=== PATIENT | male | born 1945 | race Two or more races ===

== ENCOUNTER 2024-08-31 17:40 | Emergency (ER) | payer MEDICARE, OTHER ==
[~2024-08-31] VITALS: Ht 170.2 cm; Wt 93.4 kg
[2024-08-31 17:45] VITALS: BP 128/88; RESP 18; O2SAT 96
--- NOTE | 2024-08-31 18:24 | ED.PDOC ---
Musculoskeletal HPI Comments 79-year-old male presents to ER with complaints of left elbow pain x2 days. Patient reports that he woke up with left elbow pain two days ago. Denies any known injury but states he believes he may have hit his elbow against his night stand while sleeping. Rates his current pain an 8/10 to left elbow without radiation. Notes he has been taking ibuprofen for his pain with some relief. Patient presents to ER ambulatory, with steady gait, with slight TTP to left elbow noted and full range of motion to left elbow appreciated. Denies skin changes, fever, numbness/tingling or any further symptoms/complaints Chief Complaint: Upper Extremity Time Seen by MD: 18:07 Reviewed Notes: Nurses Notes, Medications, Allergies Allergies: Coded Allergies: NO KNOWN ALLERGIES (Unverified , 08/31/24) Information Source: Patient Mode of Arrival: Ambulatory Past Medical History PAST MEDICAL HISTORY: Denies Surgical History: Denies all surgeries Family History Family History: Unknown Social History Smoker: Non-Smoker Alcohol: Denies ETOH Use Drugs: Denies Drug Use Lives In: Home Constitutional: denies: chills, diaphoresis, fatigue, fever, malaise, sweats, weakness, others EENTM: denies: blurred vision, double vision, ear bleeding, ear discharge, ear drainage, ear pain, ear ringing, eye pain, eye redness, hearing loss, mouth pain, mouth swelling, nasal discharge, nose bleeding, nose congestion, nose pain, photophobia, tearing, throat pain, throat swelling, voice changes, others Respiratory: denies: cough, hemoptysis, orthopnea, SOB at rest, shortness of breath, SOB with excertion, stridor, wheezing, others Cardiovascular: denies: chest pain, dizzy spells, diaphoresis, Dyspnea on exertion, edema, irregular heart beat, left arm pain, lightheadedness, palpitations, PND, syncope, others Gastrointestinal: denies: abdomen distended, abdominal pain, blood streaked bowels, constipated, diarrhea, dysphagia, difficulty swallowing, hematemesis, melena, nausea, poor appetite, poor fluid intake, rectal bleeding, rectal pain, vomiting, others Genitourinary: denies: burning, dysuria, flank pain, frequency, hematuria, incontinence, penile discharge, penile sore, pain, testicle pain, testicle swelling, urgency, others Neurological: denies: dizziness, fainting, headache, left sided numbness, left sided weakness, numbness, paresthesia, pre-existing deficit, right sided numbness, right sided weakness, seizure, speech problems, tingling, tremors, weakness, others Musculoskeletal: reports: others (As in HPI) Integumetry: denies: bruises, change in color, change in hair/nails, dryness, laceration, lesions, lumps, rash, wounds, others Allergic/Immunocompromised: denies: Difficulty Healing, Frequent Infections, Hives, Itching, others Hematologic/Lymphatic: denies: anemia, blood clots, easy bleeding, easy bruising, swollen glands, others Endocrine: denies: excessive hunger, excessive sweating, excessive thirst, excessive urination, flushing, intolerance to cold, intolerance to heat, unexplained weight gain, unexplained weight loss, others Psychiatric: denies: anxiety, bipolar disorder, depression, hopeless, panic disorder, schizophrenia, sleepless, suicidal, others Physical Exam General Appearance: No Apparent Distress HEENT: PERRL/EOMI Neck: Full Range of Motion, Non-Tender, Normal Respiratory: Chest Non-Tender, Lungs Clear, No Accessory Muscle Use, No Respiratory Distress, Normal Breath Sounds Cardiovascular: No Murmur, No Gallop, Regular Rate/Rhythm Breast Exam: Deferred Gastrointestinal: NOT DONE Genitalia: Deferred Pelvic: Deferred Rectal: Deferred Extremities: Normal capillary refill, Normal range of motion Musculoskeletal : Extremity Location: Elbow (Slight TTP to left elbow noted and full range of motion to left elbow appreciated. No skin changes/deformity to left elbow appreciated. No other TTP to left upper extremity noted. Pulses intact) Neurologic: Alert, No Motor Deficits, Normal Affect, Normal Mood, No Sensory Deficits Cerebellar Function: Normal Reflexes: Normal Skin: Dry, Normal Color, Warm Peripheral Pulses: 2+ Radial (R), 2+ Radial (L), 2+ Brachial (R), 2+ Brachial (L) Lymphatic: No Adenopathy Was a procedure done? Was a procedure done?: No Sedation Sedation?: No Differential Diagnosis EXT Differential Diagnosis: Fracture, Dislocation, Neurovascular injury X-Ray, Labs, Meds, VS Vital Signs Date Time Temp Pulse Resp B/P (MAP) Pulse Ox O2 Delivery O2 Flow Rate FiO2 08/31/24 17:45 18 96 Room Air* 0 21 08/31/24 17:45 98.2 81 18 128/88 (681) 59 98.2 PATIENT: JEANETH LOPEZ ACCT: [id number] UNIT: [id number] : 1945 LOC: ER ROOM / BED: / AGE / SEX: 79 / M ADM STATUS: REG ER SERVICE 14 ORDERING PHYSICIAN: PEPE PANTOJA PROCEDURE(s): LELB3 - L ELBOW 3 VIEW XRAY REASON: left elbow pain ORDER NUMBER(s): [id number], ACCESSION NUMBER(s): [id number] EXAM: XY L ELBOW 3 VIEW XRAY REASON FOR EXAM: left elbow pain TECHNIQUE: AP, lateral, and oblique views of the left elbow are submitted for review. COMPARISON: None FINDINGS: The bones demonstrate grossly normal mineralization. There is an elbow effusion. No definite fracture is identified. There is mild soft tissue swelling about the elbow. IMPRESSION: Elbow joint effusion without definite fracture. If there is clinical concern for acute fracture, consider further evaluation with CT or MRI. ATED BY: LESTER FIORE MD DICTATED DATE/TIME: 08/31/241851 SIGNED BY: LESTER FIORE MD SIGNED DATE/TIME: 08/31/241851 CC: Left elbow x-ray reviewed Patient neurovascularly intact Advised on elevation and alternate ice on/off as needed for pain Advised to follow up with PCP in 1-2 days Patient verbalized understanding and agreeable with current plan of care Advised to return to ER immediately if symptoms worsen Images Reviewed?: Images reviewed and evaluated by me Time of 1ST Reevaluation: 18:24 Reevaluation 1ST: N/A Patient Education/Counseling: Diagnosis, Treatment, Prognosis, Need For Follow Up Family Education/Counseling: No Family Present Departure 1 Departure Time of Disposition: 19:10 Impression: Primary Impression: Contusion of elbow, left Qualified Codes: S50.02XA - Contusion of left elbow, initial encounter Disposition: HOME / SELF CARE / HOMELESS Condition: Stable Discharged With: Friend Critical Care Note Critical Care Time?: No Stability Stability form required: No Heart Score Heart Score: Heart Score Response (Comments) Value History N/A 0 EKG N/A 0 Age N/A 0 Risk Factors N/A 0 Troponin N/A 0 Total 0 PEPE PANTOJA Aug 31, 2024 18:24
--- NOTE | 2024-08-31 18:55 | DVH ---
EXAM: XY L ELBOW 3 VIEW XRAY REASON FOR EXAM: left elbow pain TECHNIQUE: AP, lateral, and oblique views of the left elbow are submitted for review. COMPARISON: None FINDINGS: The bones demonstrate grossly normal mineralization. There is an elbow effusion. No definit e fracture is identified. There is mild soft tissue swelling about the elbow. IMPRESSION: Elbow joint effusion without definite fracture. If there is clinical concern for acute fracture, con construction coordinator further evaluation with CT or MRI.
[2024-08-31 19:33] VITALS: PULSE 78; RESP 18; TEMP 98.4; O2SAT 95
== END 2024-08-31 19:34 | disposition home or self-care (01) ==
LOC: ER 17:40
DX: S50.02XA Contusion of left elbow, initial encounter (principal); X58.XXXA Exposure to other specified factors, initial encounter; Y93.89 Activity, other specified; Y92.89 Other specified places as the place of occurrence of the external cause; Y99.8 Other external cause status
CPT/HCPCS: 73080

== ENCOUNTER 2024-10-01 16:58 | Emergency (ER) | payer MEDICARE ==
[~2024-10-01] VITALS: Ht 170.2 cm; Wt 102.0 kg
--- NOTE | 2024-10-01 17:27 | ED.PDOC ---
GI ASSESSMENT HPI Comments This is a pleasant but morbidly obese 79 year old male presenting to the ED with chief complaint of abdominal pain. Patient reports that he was given some tequila 4 days ago from a friend, but after drinking it that day, he started to experience diffuse abdominal pain with associated nausea, vomiting, tremors, and sleeplessness. Patient relays that his symptoms have continued till now. Patient denies any diarrhea, fever, chills, chest pain, dizziness, SOB, or melena. Vital signs were stable. Chief Complaint: Abdominal Pain Time Seen by MD: 17:16 Reviewed Notes: Nurses Notes, Medications, Allergies Allergies: Coded Allergies: NO KNOWN ALLERGIES (Unverified , 08/31/24) Information Source: Patient Mode of Arrival: Ambulatory Timing: Days Duration: Since onset Prehospital treatment: None Quality: Aching Vomitus: Watery Stool: Normal Severity: Moderate Recent: None Recent Hx of: None Pain Location: Diffuse Modifying Factors: Nothing Associated sign and symptoms: Nausea, Vomiting, Abdominal Pain Past Medical History PAST MEDICAL HISTORY: Denies Surgical History: Denies all surgeries Family History Family History: Unknown Social History Smoker: Non-Smoker Alcohol: Occasionally Drugs: Denies Drug Use Lives In: Home Constitutional: denies: chills, diaphoresis, fatigue, fever, malaise, sweats, weakness, others EENTM: denies: blurred vision, double vision, ear bleeding, ear discharge, ear drainage, ear pain, ear ringing, eye pain, eye redness, hearing loss, mouth pain, mouth swelling, nasal discharge, nose bleeding, nose congestion, nose pain, photophobia, tearing, throat pain, throat swelling, voice changes, others Respiratory: denies: cough, hemoptysis, orthopnea, SOB at rest, shortness of breath, SOB with excertion, stridor, wheezing, others Cardiovascular: denies: chest pain, dizzy spells, diaphoresis, Dyspnea on exertion, edema, irregular heart beat, left arm pain, lightheadedness, palpitations, PND, syncope, others Gastrointestinal: reports: abdominal pain, nausea, vomiting; denies: abdomen distended, blood streaked bowels, constipated, diarrhea, dysphagia, difficulty swallowing, hematemesis, melena, poor appetite, poor fluid intake, rectal bleeding, rectal pain, others Genitourinary: denies: burning, dysuria, flank pain, frequency, hematuria, incontinence, penile discharge, penile sore, pain, testicle pain, testicle swelling, urgency, others Neurological: reports: tremors; denies: dizziness, fainting, headache, left sided numbness, left sided weakness, numbness, paresthesia, pre-existing deficit, right sided numbness, right sided weakness, seizure, speech problems, tingling, weakness, others Musculoskeletal: denies: back pain, gout, joint pain, joint swelling, muscle pain, muscle stiffness, neck pain, others Integumetry: denies: bruises, change in color, change in hair/nails, dryness, laceration, lesions, lumps, rash, wounds, others Allergic/Immunocompromised: denies: Difficulty Healing, Frequent Infections, Hives, Itching, others Hematologic/Lymphatic: denies: anemia, blood clots, easy bleeding, easy bruising, swollen glands, others Endocrine: denies: excessive hunger, excessive sweating, excessive thirst, excessive urination, flushing, intolerance to cold, intolerance to heat, unexpl ained weight gain, unexplained weight loss, others Psychiatric: reports: sleepless; denies: anxiety, bipolar disorder, depression, hopeless, panic disorder, schizophrenia, suicidal, others All Other Systems: Reviewed and Negative Physical Exam General Appearance: Mild Distress (Moderate distress due to abdominal pain concerns.), Obese HEENT: Normal ENT Inspection, Pharynx Normal, TMs Normal Neck: Full Range of Motion, Non-Tender, Normal, Normal Inspection Respiratory: Chest Non-Tender, Lungs Clear, No Accessory Muscle Use, No Respiratory Distress, Normal Breath Sounds Cardiovascular: No Edema, No JVD, No Murmur, No Gallop, Normal Peripheral Pulses, Regular Rate/Rhythm Breast Exam: Deferred Gastrointestinal: Other (Nonspecific diffuse periumbilical tenderness to palpation. Difficult to assess due to body habitus. No pulsatile masses.) Genitalia: Deferred Pelvic: Deferred Rectal: Deferred Extremities: No calf tenderness, Normal capillary refill, Normal inspection, Normal range of motion, Non-tender, No pedal edema Neurologic: Alert, No Motor Deficits, Normal Affect, Normal Mood, No Sensory Deficits Cerebellar Function: NOT DONE Reflexes: NOT DONE Skin: Dry, Normal Color, Warm Lymphatic: No Adenopathy Was a procedure done? Was a procedure done?: No GI differential Dx Differential Diagnosis: Other (Sepsis food poisoning) X-Ray, Labs, Meds, VS Vital Signs Date Time Temp Pulse Resp B/P (MAP) Pulse Ox O2 Delivery O2 Flow Rate FiO2 10/01/24 20:59 97.9 90 16 145/93 (110) 95 97.9 10/01/24 17:35 97.4 84 18 123/82 (96) 92 97.4 10/01/24 17:17 80 10/01/24 17:00 97.3 90 20 133/83 96 97.3 Lab Test 10/01/24 21:15 10/01/24 21:09 10/01/24 19:28 10/01/24 18:29 Range/Units Troponin I High Sensitivity 48 47 42 </=54 ng/L Urine Color Light-yellow Yellow Urine Clarity Clear Clear Urine pH 6.0 5.0-9.0 Urine Specific [place] 1.007 1.001-1.035 Urine Protein Trace H Negative Urine Ketones Negative Negative Urine Blood Trace H Negative /uL Urine Nitrite Negative Negative Urine Bilirubin Negative Negative Urine Urobilinogen Normal Negative mg/dL Urine Leukocyte Esterase Negative Negative /uL Urine RBC <1 0 - 3 /hpf Urine Microscopic WBC < 1 0-3 /HPF Urine Squamous Epithelial Cells Few <5 /hpf Urine Bacteria None seen None Seen /hpf Urine Glucose Normal Normal mg/dL White Blood Count 7.3 4.4-10.8 10^3/uL Red Blood Count 4.55 4.5-5.90 10^6/uL Hemoglobin 14.8 13.5-17.5 g/dL Hematocrit 43.3 41.0-53.0 % Mean Corpuscular Volume 95.0 80.0-100.0 fL Mean Corpuscular Hemoglobin 32.6 H 28.0-32.0 pg Mean Corpuscular Hemoglobin Concent 34.3 32.0-36.0 g/dL Red Cell Distribution Width 15.7 H 11.8-14.3 % Platelet Count 151 140-450 10^3/uL Mean Platelet Volume 8.1 6.9-10.8 fL Neutrophils (%) (Auto) 71.0 37.0-80.0 % Lymphocytes (%) (Auto) 17.6 10.0-50.0 % Monocytes (%) (Auto) 9.7 0.0-12.0 % Eosinophils (%) (Auto) 1.2 0.0-7.0 % Basophils (%) (Auto) 0.5 0.0-2.0 % Neutrophils # (Auto) 5.2 1.6-8.6 10 ^3/uL Lymphocytes # (Auto) 1.3 0.4-5.4 10 ^3/uL Monocytes # (Auto) 0.7 0-1.3 10 ^3/uL Eosinophils # (Auto) 0.1 0-0.8 10 ^3/uL Basophils # (Auto) 0 0-0.2 10 ^3/uL Nucleated Red Blood Cells 0.2 % Sodium Level 126 L 136-145 mmol/L Potassium Level 5.1 3.5-5.1 mmol/L Chloride Level 93 L 98-107 mmol/L Carbon Dioxide Level 25 20-31 mmol/L Anion Gap 8 5-15 Blood Urea Nitrogen 13 9-23 mg/dL Creatinine 0.74 0.700-1.30 mg/dL Glomerular Filtration Rate Calc 93 >90 mL/min BUN/Creatinine Ratio 17.6 10.0-20.0 Serum Glucose 101 74-106 mg/dL Calcium Level 9.0 8.7-10.4 mg/dL Lipase 45 12-53 U/L Current Medications Medications (Trade) Dose Ordered Sig/Gideon Route Start Time Stop Time Status Last Admin Dicyclomine HCl (Bentyl Injection) 20 mg ONCE ONCE IM 10/01/24 17:15 10/01/24 17:16 DC 10/01/24 17:44 Ondansetron HCl (Zofran Po) 4 mg ONCE ONCE PO 10/01/24 17:15 10/01/24 17:16 DC 10/01/24 17:44 X-Ray, Labs, Meds, VS Comment All studies performed the ED were evaluated by me personally. Serum studies wer e unremarkable for any systemic concerns. Patient appears to have suffered a food toxicity event. Medication was effective. Advised patient utilize medication as needed for the next few days as well as good hydration and healthy nutrition. Time of 1ST Reevaluation: 22:01 Reevaluation 1ST: Improved Consultation: PCP Patient Education/Counseling: Diagnosis, Treatment Family Education/Counseling: Diagnosis, Treatment, No Family Present SEPSIS Sepsis Screen Date sepsis recognized/suspect: Oct 01, 2024 Time Sepsis recognized/suspect: 1700 Recent Procedure: No On Antibiotic Therapy: No Respiratory Rate >20: No Heart Rate >90: Yes Temp<36 C (96.8 F) or >38.3 C: No SBP <90 or MAP <65 mmHG: No New Acute Mental Status Change: No Is the patient on CPAP, BIPAP,: No Physician Orders Troponin-I Hs (10/02/24 00:00) Troponin-I Hs (10/02/24 03:00) Electrocardigram (10/01/24 17:12) Dicyclomine Injection (Bentyl Injection) (10/01/24 22:00) Vital Signs Date Time Temp Pulse Resp B/P (MAP) Pulse Ox O2 Delivery O2 Flow Rate FiO2 10/01/24 20:59 97.9 90 16 145/93 (110) 95 97.9 10/01/24 17:35 97.4 84 18 123/82 (96) 92 97.4 10/01/24 17:17 80 10/01/24 17:00 97.3 90 20 133/83 96 97.3 Laboratory Tests Test 10/01/24 18:29 White Blood Count 7.3 10^3/uL (4.4-10.8) Medications Medications Dose Ordered Sig/Gideon Route Start Time Stop Time Status Last Admin Dose Admin Dicyclomine HCl 20 mg ONCE ONCE IM 10/01/24 17:15 10/01/24 17:16 DC 10/01/24 17:44 Ondansetron HCl 4 mg ONCE ONCE PO 10/01/24 17:15 10/01/24 17:16 DC 10/01/24 17:44 Departure 1 Departure Time of Disposition: 22:01 Impression: Primary Impression: Toxic effect, food contaminant Disposition: 01 HOME / SELF CARE / HOMELESS Condition: Stable Additional Instructions: Advised patient utilize medication as needed for symptomatic relief as well as good hydration and healthy nutrition. e-Prescriptions Dicyclomine Hcl (BENTYL CAPSULE) 10 Mg Cp 1 CAP PO TID, #20 CAP 0 Refills Prov: SANTA MON PAC 10/01/24 Discharged With: Self, Spouse Critical Care Note Critical Care Time?: No Stability Stability form required: No Heart Score Heart Score: Heart Score Response (Comments) Value History N/A 0 EKG N/A 0 Age N/A 0 Risk Factors N/A 0 Troponin N/A 0 Total 0 I personally scribed for SANTA MON PAC ([email or web address]) on 10/01/24 at 17:27. Electronically submitted by Alejandro Morgan ([email or web address]). SANTA MON PAC Oct 01, 2024 17:27
[2024-10-01] MEDS: ONDANSETRON ODT 4 MG TAB PO ONE (17:44)
[2024-10-01] MEDS: DICYCLOMINE HCL (10MG/ML) 2 ML AMPULE IM ONE ×2 (17:44→22:21)
[2024-10-01 18:55] LABS: Hematocrit 43.3 % (41.0-53.0); Hemoglobin 14.8 g/dL (13.5-17.5); Mean Corpuscular Hemoglobin 32.6 pg (28.0-32.0); Mean Corpuscular Volume 95.0 fL (80.0-100.0); Nucleated Red Blood Cells % 0.2 %
[2024-10-01 19:04] LABS: Anion Gap 8 (5-15); Calcium 9.0 mg/dL (8.7-10.4); Carbon Dioxide 25 mmol/L (20-31)
[2024-10-01 19:08] LABS: Chloride 93 mmol/L (98-107); Potassium 5.1 mmol/L (3.5-5.1); Sodium 126 mmol/L (136-145)
[2024-10-01 19:09] LABS: BUN/Creatinine Ratio 17.6 (10.0-20.0); Blood Urea Nitrogen 13 mg/dL (9-23); Glucose 101 mg/dL (74-106); Lipase 45 U/L (12-53)
[2024-10-01 21:24] LABS: Urine Protein, UAD TRACE (Negative)
[2024-10-01] MEDS ORDERED: DICY10CA PO (22:02)
[2024-10-01] MEDS ORDERED: ZOFR4T PO (22:17)
[2024-10-01 22:18] VITALS: BP 119/84; PULSE 64; RESP 17; TEMP 98.4; O2SAT 95
--- NOTE | 2024-10-02 04:07 | ECG ---
[facility] Test Date: 2024-10-01 Test Time: 17:17:33 Pat Name: JEANETH LOPEZ Department: Room: Gender: M [employer] Consultant: DR WHYTE: 1945 Requested By: SANTA MON Order Number: [id number] Reading MD: Adonis Mcmillan Measurements Intervals [place] Rate: 80 P: 65 [place]: 200 QRS: 130 QRSD: 187 T: 0 QT: 473 QTc: 546 Interpretive Statements Sinus rhythm Atrial premature complex Nonspecific intraventricular conduction delay Minimal ST depression Electronically Signed On 10-04-2024 22:51:36 PDT by Adonis Mcmillan Please click the below link to view image of tracing.
== END 2024-10-01 22:18 | disposition home or self-care (01) ==
LOC: ER 17:02
DX: T62.8X1A Toxic effect of other specified noxious substances eaten as food, accidental (unintentional), initial encounter (principal); F10.90 Alcohol use, unspecified, uncomplicated; E66.01 Morbid (severe) obesity due to excess calories; Z68.35 Body mass index [BMI] 35.0-35.9, adult; Y92.89 Other specified places as the place of occurrence of the external cause; Y90.9 Presence of alcohol in blood, level not specified
CPT/HCPCS: 36415; 80048; 81001; 83690; 84484; 85025; 93005; 96372; 99285; J0500; Q0162

== ENCOUNTER 2024-10-02 17:47 | Inpatient (IN) | payer MEDICARE ==
[~2024-10-02] VITALS: Ht 177.8 cm; Wt 106.3 kg
[~2024-10-02 17:47] MED LIST: DICY10CA PO; ZOFR4T PO
--- NOTE | 2024-10-02 18:20 | ED.PDOC ---
GI ASSESSMENT HPI Comments 79-year-old male who came to ER for chest pain/abdominal pain. Patient states he has been having abdominal pain for the past 4-5 days, associated bouts of nausea and vomiting. States he could not keep anything in. Worsening of abdominal pain, radiating to his midsternal chest area p prompted check up. Patient was seen here yesterday for similar complaints, sent home with Bentyl, however symptoms persisted. At this time patient also complaining of dizziness and weakness. Chief Complaint: Chest Pain Time Seen by MD: 18:19 Reviewed Notes: Nurses Notes Allergies: Coded Allergies: NO KNOWN ALLERGIES (Unverified , 08/31/24) Home Meds Active Scripts Ondansetron Odt 4MG Tab (ZOFRAN PO) 4 Mg Tb, 4 MG PO Q6HP PRN, #15 TAB ODT TAB-DISSOLVE IN MOUTH, THEN SWALLOW Prov:SANTA MON PAC 10/01/24 Dicyclomine Hcl (BENTYL CAPSULE) 10 Mg Cp, 1 CAP PO TID, #20 CAP 0 Refills Prov:SANTA MON PAC 10/01/24 Information Source: Patient Mode of Arrival: Ambulatory Timing: Days Duration: Intermittent Prehospital treatment: None Quality: Cramping Vomitus: Watery Stool: Normal Severity: Moderate Recent: None Recent Hx of: None Pain Location: Epigastric Associated sign and symptoms: Nausea, Vomiting, Abdominal Pain Past Medical History PAST MEDICAL HISTORY: Denies Surgical History: Denies all surgeries Family History Family History: Reviewed,noncontributory to illness Social History Smoker: Non-Smoker Alcohol: Occasionally Drugs: Denies Drug Use Lives In: Home Constitutional: reports: weakness; denies: chills, diaphoresis, fatigue, fever, malaise, sweats, others EENTM: denies: blurred vision, double vision, ear bleeding, ear discharge, ear drainage, ear pain, ear ringing, eye pain, eye redness, hearing loss, mouth pain, mouth swelling, nasal discharge, nose bleeding, nose congestion, nose pain, photophobia, tearing, throat pain, throat swelling, voice changes, others Respiratory: denies: cough, hemoptysis, orthopnea, SOB at rest, shortness of breath, SOB with excertion, stridor, wheezing, others Cardiovascular: reports: chest pain; denies: dizzy spells, diaphoresis, Dyspnea on exertion, edema, irregular heart beat, left arm pain, lightheadedness, palpitations, PND, syncope, others Gastrointestinal: reports: abdominal pain, nausea, poor appetite, vomiting; denies: abdomen distended, blood streaked bowels, constipated, diarrhea, dysphagia, difficulty swallowing, hematemesis, melena, poor fluid intake, rectal bleeding, rectal pain, others Genitourinary: denies: burning, dysuria, flank pain, frequency, hematuria, incontinence, penile discharge, penile sore, pain, testicle pain, testicle swelling, urgency, others Neurological: reports: dizziness; denies: fainting, headache, left sided numbness, left sided weakness, numbness, paresthesia, pre-existing deficit, right sided numbness, right sided weakness, seizure, speech problems, tingling, tremors, weakness, others Musculoskeletal: denies: back pain, gout, joint pain, joint swelling, muscle pain, muscle stiffness, neck pain, others Integumetry: denies: bruises, change in color, change in hair/nails, dryness, laceration, lesions, lumps, rash, wounds, others Allergic/Immunocompromised: denies: Difficulty Healing, Frequent Infections, Hives, Itching, others Hematologic/Lymphatic: denies: anemia, blood clots, easy bleeding, easy bruising, swollen glands, others Endocrine: denies: excessive hunger, excessive sweating, excessive thirst, excessive urination, flushing, intolerance to cold, intolerance to heat, unexplained weight gain, unexplained weight loss, others Psychiatric: denies: anxiety, bipolar disorder, depression, hopeless, panic disorder, schizophrenia, sleepless, suicidal, others Physical Exam General Appearance: No Apparent Distress, Normal HEENT: Normal ENT Inspection, Pharynx Normal, TMs Normal Neck: Full Range of Motion, Non-Tender, Normal, Normal Inspection Respiratory: Chest Non-Tender, Lungs Clear, No Accessory Muscle Use, No Respiratory Distress, Normal Breath Sounds Cardiovascular: No Edema, No JVD, No Murmur, No Gallop, Normal Peripheral Pulses, Regular Rate/Rhythm Breast Exam: Deferred Gastrointestinal: No Organomegaly, Non Tender, No Pulsatile Mass, Normal Bowel Sounds, Soft Genitalia: Deferred Pelvic: Deferred Rectal: Deferred Extremities: No calf tenderness, Normal capillary refill, Normal inspection, Normal range of motion, Non-tender, No pedal edema Musculoskeletal : Apperance: Normal Neurologic: Alert, button sewer II-XII nml as Tested, No Motor Deficits, Normal Affect, Normal Mood, No Sensory Deficits Cerebellar Function: Normal Reflexes: Normal Skin: Dry, Normal Color, Warm Lymphatic: No Adenopathy Was a procedure done? Was a procedure done?: No GI differential Dx Differential Diagnosis: Cholecystitis, Diverticular disease, Gastritis/PUD, Gastroenteritis, Pancreatitis, UTI, Dehydration, Electrolyte Imbalance X-Ray, Labs, Meds, VS Vital Signs Date Time Temp Pulse Resp B/P (MAP) Pulse Ox O2 Delivery O2 Flow Rate FiO2 10/02/24 20:39 72 10/02/24 19:56 97.1 74 18 114/82 (93) 92 97.1 10/02/24 18:54 75 10/02/24 18:04 76 10/02/24 17:48 97.7 80 18 107/76 96 97.7 Lab Test 10/02/24 18:54 10/02/24 18:11 Range/Units Troponin I High Sensitivity 39 39 </=54 ng/L White Blood Count 9.0 4.4-10.8 10^3/uL Red Blood Count 4.43 L 4.5-5.90 10^6/uL Hemoglobin 14.8 13.5-17.5 g/dL Hematocrit 42.8 41.0-53.0 % Mean Corpuscular Volume 96.7 80.0-100.0 fL Mean Corpuscular Hemoglobin 33.5 H 28.0-32.0 pg Mean Corpuscular Hemoglobin Concent 34.6 32.0-36.0 g/dL Red Cell Distribution Width 16.1 H 11.8-14.3 % Platelet Count 144 140-450 10^3/uL Mean Platelet Volume 8.0 6.9-10.8 fL Neutrophils (%) (Auto) 69.9 37.0-80.0 % Lymphocytes (%) (Auto) 19.5 10.0-50.0 % Monocytes (%) (Auto) 9.1 0.0-12.0 % Eosinophils (%) (Auto) 1.2 0.0-7.0 % Basophils (%) (Auto) 0.3 0.0-2.0 % Neutrophils # (Auto) 6.3 1.6-8.6 10 ^3/uL Lymphocytes # (Auto) 1.8 0.4-5.4 10 ^3/uL Monocytes # (Auto) 0.8 0-1.3 10 ^3/uL Eosinophils # (Auto) 0.1 0-0.8 10 ^3/uL Basophils # (Auto) 0 0-0.2 10 ^3/uL Nucleated Red Blood Cells 0.3 % Sodium Level 122 L 136-145 mmol/L Potassium Level 5.6 *H 3.5-5.1 mmol/L Chloride Level 85 L 98-107 mmol/L Carbon Dioxide Level 29 20-31 mmol/L Anion Gap 8 5-15 Blood Urea Nitrogen 20 9-23 mg/dL Creatinine 0.98 0.700-1.30 mg/dL Glomerular Filtration Rate Calc 79 >90 mL/min BUN/Creatinine Ratio 20.4 H 10.0-20.0 Serum Glucose 130 H 74-106 mg/dL Calcium Level 8.8 8.7-10.4 mg/dL Total Bilirubin 2.5 H 0.2-1.0 mg/dL Aspartate Amino Transferase (AST) 202 H 13-40 U/L Alanine Aminotransferase (ALT) 174 H 7-40 U/L Alkaline Phosphatase 111 46-116 U/L Total Protein 6.3 5.7-8.2 g/dL Albumin 4.3 3.2-4.8 g/dL Lipase 36 12-53 U/L Current Medications Medications (Trade) Dose Ordered Sig/Gideon Route Start Time Stop Time Status Last Admin Sodium Chloride 1,000 ml @ 1,000 mls/hr Q1H ONCE IV 10/02/24 18:15 10/02/24 19:14 DC 10/02/24 20:04 Ondansetron HCl (Zofran) 4 mg ONCE ONCE IV 10/02/24 18:15 10/02/24 18:17 DC 10/02/24 20:03 CHEST RADIOGRAPH REASON FOR EXAM: chest pain COMPARISON: None TECHNIQUE: One view of the chest is provided FINDINGS: The cardiomediastinal silhouette is borderline enlarged. There is mild pulmonary edema. There is small right pleural effusion. There is bibasilar airspace disease that may represent atelectasis although pneumonia is not ruled out. There is no pneumothorax. IMPRESSION: Borderline cardiomegaly. Small right pleural effusion. Mild pulmonary edema. Bibasilar airspace disease may represent atelectasis although pneumonia is not ruled out. Time of 1ST Reevaluation: 18:17 Reevaluation 1ST: Unchanged Patient Education/Counseling: Diagnosis, Treatment Family Education/Counseling: No Family Present SEPSIS Sepsis Screen Date sepsis recognized/suspect: Oct 02, 2024 Time Sepsis recognized/suspect: 1750 Recent Procedure: No On Antibiotic Therapy: No Respiratory Rate >20: No Heart Rate >90: No Temp<36 C (96.8 F) or >38.3 C: No SBP <90 or MAP <65 mmHG: No New Acute Mental Status Change: No Is the patient on CPAP, BIPAP,: No Physician Orders Electrocardigram (10/02/24 18:52) Electrocardigram (10/02/24 20:52) Chest Portable (10/02/24 17:59) Ct Chest/Ab/Pl W Con- Iv Only (10/02/24 18:15) Saline Lock (10/02/24 18:49) Vital Signs Date Time Temp Pulse Resp B/P (MAP) Pulse Ox O2 Delivery O2 Flow Rate FiO2 10/02/24 20:39 72 10/02/24 19:56 97.1 74 18 114/82 (93) 92 97.1 10/02/24 18:54 75 10/02/24 18:04 76 10/02/24 17:48 97.7 80 18 107/76 96 97.7 Laboratory Tests Test 10/02/24 18:11 White Blood Count 9.0 10^3/uL (4.4-10.8) Medications Medications Dose Ordered Sig/Gideon Route Start Time Stop Time Status Last Admin Dose Admin Ondansetron HCl 4 mg ONCE ONCE IV 10/02/24 18:15 10/02/24 18:17 DC 10/02/24 20:03 Sodium Chloride 1,000 ml @ 1,000 mls/hr Q1H ONCE IV 10/02/24 18:15 10/02/24 19:14 DC 10/02/24 20:04 Departure 1 Departure Time of Disposition: 21:19 Impression: Primary Impression: Acute coronary syndrome Additional Impressions: CHF (congestive heart failure) Hyponatremia Hyperkalemia Disposition: ADMITTED INPATIENT Admit to: Tele Condition: Guarded Comments 79-year-old male with complains of chest pain and abdominal pain and occasional nausea and vomiting. His lab results show low sodium at 122. Hyperkalemia 5.6. CT of the chest abdomen and pelvis shows some fluid overload/pulmonary edema. Initial troponin is in the normal range. Patient will need admission for acute coronary syndrome, hyponatremia and hyperkalemia and congestive heart failure/fluid overload Critical Care Note Critical Care Time?: No Critical care comment: Total critical care time: Approximately 36 minutes Due to a high probability of clinically significant, life threatening deterioration, the patient required my highest level of preparedness to intervene emergently and I personally spent this critical care time directly and personally managing the patient. This critical care time included obtaining a history; examining the patient; pulse oximetry; ordering and review of studies; arranging urgent treatment with development of a management plan; evaluation of patient's response to treatment; frequent reassessment; and, discussions with other providers. This critical care time was performed to assess and manage the high probability of imminent, life-threatening deterioration that could result in multi-organ failure. It was exclusive of separately billable procedures and treating other patients. Stability Stability form required: No Heart Score Heart Score: Heart Score Response (Comments) Value History Moderate Suspicious 1 EKG Repolarization Disturb 1 Age >65 2 Risk Factors 1 or 2 risk factors 1 Troponin Normal limit 0 Total 5 I personally scribed for ALISHA ESPINOZA MD ([email or web address]) on 10/02/24 at 18:20. Electronically submitted by Ashvin Kidd ([email or web address]). I personally scribed for ALISHA ESPINOZA MD ([email or web address]) on 10/02/24 at 20:07. Electronically submitted by Ashvin Kidd ([email or web address]). ALISHA ESPINOZA MD Oct 02, 2024 18:20
[2024-10-02 18:45] LABS: Hematocrit 42.8 % (41.0-53.0); Hemoglobin 14.8 g/dL (13.5-17.5); Mean Corpuscular Hemoglobin 33.5 pg (28.0-32.0); Mean Corpuscular Volume 96.7 fL (80.0-100.0); Nucleated Red Blood Cells % 0.3 %
--- NOTE | 2024-10-02 19:00 | DVH ---
CHEST RADIOGRAPH REASON FOR EXAM: chest pain COMPARISON: None TECHNIQUE: One view of the chest is provided FINDINGS: The cardiomediastinal silhouette is borderline enlarged. There is mild pulmonary edema. The re is small right pleural effusion. There is bibasilar airspace disease that may represent atelectasi s although pneumonia is not ruled out. There is no pneumothorax. IMPRESSION: Borderline cardiomegaly. Small right pleural effusion. Mild pulmonary edema. Bibasilar airspace disease may represent atelectasis although pneumonia is not ruled out.
[2024-10-02 19:01] LABS: Albumin 4.3 g/dL (3.2-4.8); Alkaline Phosphatase 111 U/L (46-116); Anion Gap 8 (5-15); BUN/Creatinine Ratio 20.4 (10.0-20.0); Blood Urea Nitrogen 20 mg/dL (9-23); Calcium 8.8 mg/dL (8.7-10.4); Carbon Dioxide 29 mmol/L (20-31); Lipase 36 U/L (12-53); Total Protein 6.3 g/dL (5.7-8.2)
--- NOTE | 2024-10-02 19:01 | ECG ---
[facility] Test Date: 2024-10-02 Test Time: 18:51:04 Pat Name: JEANETH LOPEZ Department: ED Room: 0219T Gender: M [employer] Tra[employer]: MAGGI : 1945 Requested By: NUZHAT GUERRERO Order Number: [id number] Reading MD: Adonis Mcmillan Measurements Intervals [place] Rate: 75 P: 66 AL: 195 QRS: 132 QRSD: 189 T: 4 QT: 483 QTc: 540 Interpretive Statements Sinus rhythm Multiform ventricular premature complexes RBBB and LPFB Electronically Signed On 10-04-2024 22:56:52 PDT by Adonis Mcmillan Please click the below link to view image of tracing.
[2024-10-02 19:07] LABS: Alanine Aminotransferase 174 U/L (7-40); Bilirubin, Total 2.5 mg/dL (0.2-1.0); Chloride 85 mmol/L (98-107); Glucose 130 mg/dL (74-106); Sodium 122 mmol/L (136-145)
[2024-10-02] MEDS: IOHEXOL 300 MG/ML 100ML BOTTLE IJ ONE (19:10)
[2024-10-02 19:20] LABS: Potassium 5.6 mmol/L (3.5-5.1)
[2024-10-02] MEDS: ONDANSETRON HCL 4 MG/2 ML VIAL IV ONE ×2 (20:03→22:26)
[2024-10-02] MEDS: SODIUM CHLORIDE 0.9% 1,000 ML IV ONE (20:04)
--- NOTE | 2024-10-02 21:10 | DVH ---
CLINICAL HISTORY: abd pain, vomiting, chest pain TECHNIQUE: CT of the chest, abdomen and pelvis was performed with IV contrast 85 mL Omnipaque 300. Th is exam was performed according to our departmental dose optimization program. Up-to-date CT equipmen t and radiation dose reduction techniques are utilized as appropriate. 27.13 CTDI: 27.13 DLP: 27.13 COMPARISON: None FINDINGS: CHEST FINDINGS: Lower Neck: Unremarkable Axilla, Mediastinum and Kaia: No axillary, mediastinal, or hilar lymphadenopathy. Calcified mediastin al lymph nodes. Heart and Great Vessels: Cardiomegaly without pericardial effusion. [id number]-[id number] 3-vessel calcifi ed coronary artery disease. Mild aortic valve calcifications. The thoracic aorta is normal in calib er containing mild mixed atherosclerotic plaque. The central pulmonary arteries are patent. Airway, Lungs and Pleura: Trachea and central airways are patent. There is mild bronchial wall thicke elisabeth bilaterally. Linear bibasilar scarring or atelectasis. Small right pleural effusion. Very mild i nterlobular septal thickening in the lung bases. No pneumothorax. Chest Wall and Osseous Structures: Mild multilevel Thoracic spondylosis. No destructive osseous lesi on. Abdomen and Pelvis Findings: Liver and Biliary system: Very mild nodular contour of the liver. Major portal veins are patent. Gal lbladder is normal caliber. There is no biliary ductal dilatation. Suggestion of mild gallbladder wal l thickening. Spleen: Unremarkable. Adrenal Glands and Kidneys: Normal adrenal glands. No hydronephrosis or nephrolithiasis. Small hypode nsities in the left kidney likely cysts. Pancreas and Retroperitoneum: Mild retroperitoneal edema. Unremarkable pancreas. No retroperitoneal l ymphadenopathy. Aorta and Major Vessels: Abdominal aorta is patent and normal caliber with moderate mixed atheroscler otic plaque. 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 Bowel, Mesentery and Peritoneal space: Normal caliber small and large bowel. Mild distal colonic div erticulosis. Mild ascites. Mesenteric venous congestion. No free air or fluid collection. Pelvis: Circumferential bladder wall thickening. There is mild prostatomegaly. There is no pelvic lym phadenopathy. Abdominal wall and Osseous Structures: Small fat containing bilateral inguinal hernias. There is bod y wall edema. Moderate multilevel lumbar spondylosis. There is a chronic mild superior endplate compr ession fracture less than 25% height loss at L3. No destructive osseous lesion. IMPRESSION: CHF/ volume overload, with mild cardiomegaly, mild interstitial pulmonary edema, small right pleural effusion, mesenteric venous congestion and mild ascites, and mild body wall edema. Very mild nodular contour of the liver which could be fibrosis or less likely cirrhosis. Correlate w ith lFTs and clinical history. Mild distal colonic diverticulosis. Mild bladder wall thickening which could be related to chronic bladder outlet obstruction in the sett ing of mild prostatomegaly. Correlate with urinalysis if there is clinical concern for cystitis. [id number] 3-vessel calcified coronary artery disease. Mild aortic valve calcifications.
[2024-10-02] MEDS: FUROSEMIDE 40 MG/4 ML VIAL IV ONE (21:53)
[2024-10-02] MEDS: MORPHINE SULFATE 4 MG/ML SYR/VIAL IV ONE (22:26)
--- NOTE | 2024-10-02 23:00 | DVHHPRES ---
History of Present Illness Resident Creating Document: BHAVANA CLARK RESIDENT History of Present Illness Patient is a 79-year-old male with past medical history of hypertension, dyslipidemia, asthma, depression, gout who comes in due to generalized abdominal pain. According to the patient, pain has been ongoing for the last 4-5 days in his associated with intermittent nausea and vomiting, he describes the abdominal pain is cramping and located in the epigastric region with radiation to the midsternal chest area. Patient was evaluated in the ED yesterday for similar symptoms and discharged with Bentyl but symptoms continued to worsen which prompted this visit to the hospital. Patient also notes having nausea and chills along with 5 episodes of vomiting, he notes abdominal pain worsens with vomiting. Of note, patient also takes ibuprofen once daily for the past 5-6 years. Patient notes 1 week ago he drank 1 bottle of Tequila, however, notes usually we will only drink alcohol occasionally. On review of systems patient is complaining of fatigue, chills, productive cough, shortness of breath, nausea, vomiting and constipation. Past Medical History Hypertension, dyslipidemia, asthma, depression, gout Past Social History Smoking: Denies Alcohol: Occasionally, wine and Tequila Drugs: Denies Review of Systems Constitutional: Yes: Chills; No: Fever, Sweats, Weakness, Malaise, Other Eyes: No: Pain, Vision change, Conjunctivae inflammation, Eyelid inflammation, Other, Redness ENT: No: Ear pain, Ear discharge, Nose pain, Nose discharge, Nose congestion, Mouth pain, Mouth swelling, Throat pain, Throat swelling, Other Respiratory: Cough, Shortness of breath; No: Dry, SOB with excertion, Wheezing, Hemoptysis, Pleuritic Pain, Sputum, Wheezing, Other Cardiovascular: No: Chest Pain, Palpitations, Orthopnea, Paroxysmal Noc. Dyspnea, Edema, Lt Headedness, Other Gastrointestinal: Nausea, Vomiting, Abdominal Pain, Constipation; No: Diarrhea, Melena, Hematochezia, Other Genitourinary: No Dysuria, No Frequency, No Incontinence, No Hematuria, No R etention, No Other Musculoskeletal: No: other, neck pain, shoulder pain, arm pain, back pain, hand pain, leg pain, foot pain Skin: No: Rash, Lesions, Jaundice, Bruising, Other Neurological: No: Weakness, Numbness, Incoordination, Change in speech, Confusion, Seizures, Other Allergies: Coded Allergies: NO KNOWN ALLERGIES (Unverified , 08/31/24) Exam Vital Signs Vital Signs Date Time Temp Pulse Resp B/P (MAP) Pulse Ox O2 Delivery O2 Flow Rate FiO2 10/02/24 22:00 97.3 7 20 120/86 (97) 91 97.3 10/02/24 21:45 Room Air* 0 21 General Appearance: Alert, Oriented X3, Cooperative, No acute distress HEENT: Atraumatic, PERRLA, EOMI, Other (Dry mucous membranes) Respiratory: Normal air movement, Other (Coarse bilateral breath sounds) Cardiovascular: Regular rate, Normal S1, Normal S2 Abdominal: Normal bowel sounds, Soft, Other (Generalized abdominal tenderness to palpation) Extremities: Other (1+ lower extremity pitting edema) Skin: No rashes Neuro: Normal speech Psych/Mental Status: Mental status NL, Mood NL Labs/Xrays Labs Test 10/02/24 18:54 10/02/24 18:11 Range/Units Troponin I High Sensitivity 39 </=54 ng/L White Blood Count 9.0 4.4-10.8 10^3/uL Red Blood Count 4.43 L 4.5-5.90 10^6/uL Hemoglobin 14.8 13.5-17.5 g/dL Hematocrit 42.8 41.0-53.0 % Mean Corpuscular Volume 96.7 80.0-100.0 fL Mean Corpuscular Hemoglobin 33.5 H 28.0-32.0 pg Mean Corpuscular Hemoglobin Concent 34.6 32.0-36.0 g/dL Red Cell Distribution Width 16.1 H 11.8-14.3 % Platelet Count 144 140-450 10^3/uL Mean Platelet Volume 8.0 6.9-10.8 fL Neutrophils (%) (Auto) 69.9 37.0-80.0 % Lymphocytes (%) (Auto) 19.5 10.0-50.0 % Monocytes (%) (Auto) 9.1 0.0-12.0 % Eosinophils (%) (Auto) 1.2 0.0-7.0 % Basophils (%) (Auto) 0.3 0.0-2.0 % Neutrophils # (Auto) 6.3 1.6-8.6 10 ^3/uL Lymphocytes # (Auto) 1.8 0.4-5.4 10 ^3/uL Monocytes # (Auto) 0.8 0-1.3 10 ^3/uL Eosinophils # (Auto) 0.1 0-0.8 10 ^3/uL Basophils # (Auto) 0 0-0.2 10 ^3/uL Nucleated Red Blood Cells 0.3 % Sodium Level 122 L 136-145 mmol/L Potassium Level 5.6 *H 3.5-5.1 mmol/L Chloride Level 85 L 98-107 mmol/L Carbon Dioxide Level 29 20-31 mmol/L Anion Gap 8 5-15 Blood Urea Nitrogen 20 9-23 mg/dL Creatinine 0.98 0.700-1.30 mg/dL Glomerular Filtration Rate Calc 79 >90 mL/min BUN/Creatinine Ratio 20.4 H 10.0-20.0 Serum Glucose 130 H 74-106 mg/dL Calcium Level 8.8 8.7-10.4 mg/dL Total Bilirubin 2.5 H 0.2-1.0 mg/dL Aspartate Amino Transferase (AST) 202 H 13-40 U/L Alanine Aminotransferase (ALT) 174 H 7-40 U/L Alkaline Phosphatase 111 46-116 U/L Total Protein 6.3 5.7-8.2 g/dL Albumin 4.3 3.2-4.8 g/dL Lipase 36 12-53 U/L SEPSIS Sepsis Screen Date sepsis recognized/suspect: Oct 02, 2024 Time Sepsis recognized/suspect: 2144 Recent Procedure: No On Antibiotic Therapy: No Respiratory Rate >20: No Heart Rate >90: No Temp<36 C (96.8 F) or >38.3 C: No SBP <90 or MAP <65 mmHG: No New Acute Mental Status Change: No Is the patient on CPAP, BIPAP,: No Physician Orders Electrocardigram (10/02/24 18:52) Electrocardigram (10/02/24 20:52) Chest Portable (10/02/24 17:59) Ct Chest/Ab/Pl W Con- Iv Only (10/02/24 18:15) Saline Lock (10/02/24 18:49) Vital Signs Date Time Temp Pulse Resp B/P (MAP) Pulse Ox O2 Delivery O2 Flow Rate FiO2 10/02/24 22:00 97.3 7 20 120/86 (97) 91 97.3 10/02/24 21:53 122/88 10/02/24 21:45 97.2 73 20 122/88 (99) 97 97.2 10/02/24 21:45 Room Air* 0 21 10/02/24 20:39 72 10/02/24 19:56 97.1 74 18 114/82 (93) 92 97.1 10/02/24 18:54 75 10/02/24 18:04 76 10/02/24 17:48 97.7 80 18 107/76 96 97.7 Laboratory Tests Test 10/02/24 18:11 White Blood Count 9.0 10^3/uL (4.4-10.8) Medications Medications Dose Ordered Sig/Gideon Route Start Time Stop Time Status Last Admin Dose Admin Aspirin 162 mg ONCE ONCE PO 10/02/24 21:30 10/02/24 21:31 DC 10/02/24 21:52 162 MG Furosemide 40 mg ONCE ONCE IV 10/02/24 21:30 10/02/24 21:31 DC 10/02/24 21:53 40 MG Ondansetron HCl 4 mg ONCE ONCE IV 10/02/24 18:15 10/02/24 18:17 DC 10/02/24 20:03 4 MG Sodium Chloride 1,000 ml @ 1,000 mls/hr Q1H ONCE IV 10/02/24 18:15 10/02/24 19:14 DC 10/02/24 20:04 1,000 MLS/HR Assessment/Plan Assessment/Plan Acute intractable abdominal pain Intractable vomiting, 5 episodes Dehydration Lactic acidosis Rule out ACS ? Gastritis versus peptic ulcer disease Prolonged QTC Mild ascites - CT abdomen pelvis: CHF/volume overload, with mild cardiomegaly, mild interstitial pulmonary edema, small right pleural effusion, mesenteric venous congestion and mild ascites, mild body wall edema. Very mild nodular contour of the liver which could be fibrosis or less likely cirrhosis. Mild bladder wall thickening which could be related to chronic bladder outlet obstruction. Mild distal colonic diverticulosis. [id number] three-vessel calcified coronary artery disease. Mild aortic valve calcifications. - serial troponins 39, 39 - aspirin 162 mg once - IV NS 1 L once Hyperkalemia Chronic asymptomatic hyponatremia - hyperkalemia protocol - ordered serum osmolality, urine osmolality, urine sodium - monitor Thrombocytopenia, mild - monitor Hyperbilirubinemia Transaminitis - CT abdomen pelvis: Mesenteric venous congestion and mild ascites. Very mild nodular contour of the liver which could be fibrosis or less likely cirrhosis - monitor Questionable CHF with interstitial pulmonary edema? Right-sided pleural effusion Questionable community-acquired pneumonia, Gram-positive versus Gram-negative? - CXR: Borderline cardiomegaly. Small right pleural effusion. Mild pulmonary edema. Bibasilar airspace disease may represent atelectasis although pneumonia is not ruled out. - serum BNP 1680.72 - IV Lasix 40 mg once - ordered echocardiogram - ordered respiratory cultures, COVID, influenza testing - IV ceftriaxone, IV doxycycline Colonic diverticulosis without diverticulitis Constipation, likely slow transit - Colace 100 mg b.i.d., MiraLax 17 g as needed - monitor Grade 2 obesity - counseled extensively on lifestyle modification including healthy diet and activity History of depression - resumed home medication trazodone 50 mg q.p.m. - monitor History of asthma - ipratropium and albuterol med nebs Q 8 hours as needed PUD prophylaxis: protonix 40mg DVT prophylaxis: SCDs Goals of care: Full code, discussed for >16 minutes on 10/02/2024 Plan discussed with patient Plan discussed with Dr. Vu Plan discussed with: Patient, Spouse, Other (RN) Date of Service: Oct 02, 2024 Billing Provider: KALPANA VU MD Common Visit Codes: 37500-TFWGCDV INP/OBS CARE (HIGH) Secondary Visit Codes: 11700-KXRCEBPQ CARE PLAN 30 MINUTES BHAVANA CLARK Oct 02, 2024 23:00
[2024-10-02 23:14] VITALS: BP 120/86; PULSE 77; RESP 18; TEMP 97.3; O2SAT 94
[2024-10-02] MEDS: ALBUTEROL SULF 2.5 MG/0.5ML(0.5%) NEB SOLN NEB ONE (23:14)
[2024-10-02] MEDS ORDERED: ALBUTEROL SULF 2.5 MG/0.5ML(0.5%) NEB SOLN NEB PRN (23:15)
[2024-10-02] MEDS ORDERED: IPRATROPIUM BROM 0.5 MG/2.5ML INH SOL NEB PRN (23:15)
[2024-10-02 23:31] LABS: INR 1.37 (0.9-1.15); Prothrombin Time 14.1 sec (9.3-11.8)
[2024-10-03] VITALS (12 sets, daily range): BP systolic 98–118; BP diastolic 56–96; PULSE 59–85; RESP 16–18; TEMP 96.8–98.2; O2SAT 95–100
[2024-10-03 00:11] LABS: Lactic Acid w/Reflex 2.2 mmol/L (0.4-2.0)
[2024-10-03] MEDS ORDERED: POLYETHYLENE GLYCOL 17 GM PWDR PO PRN (00:45)
[2024-10-03 01:16] LABS: COVID19 ANTIGEN SOFIA FIA NEGATIVE (NEGATIVE)
--- NOTE | 2024-10-03 05:15 | ECG ---
[facility] Test Date: 2024-10-02 Test Time: 20:39:56 Pat Name: JEANETH LOPEZ Department: Room: 0219T B Gender: M Auto Inspector: YOSVANY : 1945 Requested By: NUZHAT GUERRERO Order Number: [id number] Reading MD: Adonis Mcmillan Measurements Intervals [place] Rate: 72 P: 59 WY: 206 QRS: 127 QRSD: 187 T: -25 QT: 495 QTc: 542 Interpretive Statements Sinus rhythm Nonspecific intraventricular conduction delay Electronically Signed On 10-04-2024 22:57:24 PDT by Adonis Mcmillan Please click the below link to view image of tracing.
[2024-10-03] MEDS ORDERED: DOXYCYCLINE 100MG/100ML 100 ML IV SCH (07:00)
[2024-10-03 07:35] LABS: Hematocrit 39.5 % (41.0-53.0); Hemoglobin 14.1 g/dL (13.5-17.5); Mean Corpuscular Hemoglobin 34.6 pg (28.0-32.0); Mean Corpuscular Volume 96.9 fL (80.0-100.0); Nucleated Red Blood Cells % 0.4 %
[2024-10-03 07:40] LABS: Anion Gap 10 (5-15); Carbon Dioxide 29 mmol/L (20-31); Potassium 4.4 mmol/L (3.5-5.1)
[2024-10-03 07:42] LABS: Calcium 8.9 mg/dL (8.7-10.4)
[2024-10-03 07:46] LABS: BUN/Creatinine Ratio 15.5 (10.0-20.0); Blood Urea Nitrogen 16 mg/dL (9-23)
[2024-10-03 07:47] LABS: Chloride 91 mmol/L (98-107); Glucose 126 mg/dL (74-106); Sodium 130 mmol/L (136-145)
[2024-10-03] MEDS: cefTRIAXone 1GM/50ML D5W 50 ML IV SCH (08:49)
[2024-10-03] MEDS: DOCUSATE SOD 100 MG CAP PO SCH (10:21)
[2024-10-03] MEDS: DOXYCYCLINE 100MG/100ML 100 ML IV SCH (10:21)
[2024-10-03 15:07] LABS: Triglycerides 122 mg/dL (< 150)
--- NOTE | 2024-10-03 15:07 | DVHPNRES ---
Progress Note Date Seen: Oct 03, 2024 Resident Creating Document: ENMA VANEGAS RESIDENT Medical Necessity Reason Pt with a Central, PICC or Fol: No Subjective Review of Systems Patient is a 79-year-old male with past medical history of hypertension, dyslipidemia, asthma, depression, gout who came in due to generalized abdominal pain. According to the patient, pain has been ongoing for the last 4-5 days and is associated with intermittent nausea and vomiting, he describes the abdominal pain is cramping and located in the epigastric region with radiation to the midsternal chest area. Patient was evaluated in the ED yesterday for similar symptoms and discharged with Bentyl but symptoms continued to worsen which prompted this visit to the hospital. Patient also notes having nausea and chills along with 5 episodes of vomiting, he notes abdominal pain worsens with vomiting. The patient also had dizziness during this time. Of note, patient also takes ibuprofen once daily for the past 5-6 years. Patient notes 1 week ago he drank 1 bottle of Tequila, however, notes usually he will only drink alcohol occasionally. On review of systems patient is complaining of fatigue, chills, productive cough, shortness of breath, nausea, vomiting and constipation. The patient still has shortness of breath but the abdominal pain has reduced. The patient mentions having trouble falling asleep since the last one month. BNP was 1640 and EKG showed sinus rhythm with RBBB, LPFB and prolonged QTc. Chest xray showed cardiomegaly with small right pleural effusion and bibasilar atelectasis in the lungs. CT showed CHF/volume overload with mild cardiomegaly and mild to moderate 3 vessel calcified CAD. Hence an Echo was ordered for the patient for further evaluation and workup which showed EF of 10% on preliminary evaluation. He was started on 2l oxygen. Past Medical History Hypertension, dyslipidemia, asthma, depression, gout Past Social History Smoking: Denies Alcohol: Occasionally, wine and Tequila Drugs: Denies Constitutional: Yes: Chills; No: Fever, Sweats, Weakness, Malaise, Other Eyes: No: Pain, Vision change, Conjunctivae inflammation, Eyelid inflammation, Other, Redness ENT: No: Ear pain, Ear discharge, Nose pain, Nose discharge, Nose congestion, Mouth pain, Mouth swelling, Throat pain, Throat swelling, Other Respiratory: Cough, Shortness of breath; No: SOB with excertion, Wheezing, Hemoptysis, Pleuritic Pain, Sputum, Wheezing, Other Cardiovascular: No: Chest Pain, Palpitations, Orthopnea, Paroxysmal Noc. Dyspnea, Edema, Lt Headedness, Other Gastrointestinal: Nausea, Vomiting, Abdominal Pain, Constipation; No: Diarrhea, Melena, Hematochezia, Other Genitourinary: No Dysuria, No Frequency, No Incontinence, No Hematuria, No Retention, No Other Musculoskeletal: No: other, neck pain, shoulder pain, arm pain, back pain, hand pain, leg pain, foot pain Skin: No: Rash, Lesions, Jaundice, Bruising, Other Neurological: No: Weakness, Numbness, Incoordination, Change in speech, Confusion, Seizures, Other Allergies: no known allergies General Appearance: Alert, Oriented X3, Cooperative, No acute distress HEENT: Atraumatic, PERRLA, EOMI, Other (Dry mucous membranes) Respiratory: Normal air movement, Other (Coarse bilateral breath sounds) Cardiovascular: Regular rate, Normal S1, Normal S2 Abdominal: Normal bowel sounds, Soft, obese abdomen,Other (Generalized abdominal tenderness to palpation) Extremities: Other (1+ lower extremity pitting edema) Skin: No rashes Neuro: Normal speech Psych/Mental Status: Mental status NL, Mood NL Objective vital signs Vital Sign Date Time Temp Pulse Resp B/P (MAP) Pulse Ox O2 Delivery O2 Flow Rate FiO2 10/03/24 13:00 97.4 68 16 98/72 (81) 100 97.4 10/03/24 10:00 Room Air* 0 21 Total Intake and Output 10/02/24 10/02/24 10/03/24 15:00 23:00 07:00 Intake Total 1000 ml 0 ml Balance 1000 ml 0 ml medications Current Medications Medications Dose Ordered Sig/Gideon Route Start Time Stop Time Status Last Admin Dose Admin Ipratropium [place] 0.5 mg Q8HPRN PRN NEB 10/02/24 23:15 Albuterol 2.5 mg Q8HPRN PRN NEB 10/02/24 23:15 Docusate Sodium 100 mg BID PO 10/03/24 10:00 10/03/24 10:21 100 MG Polyethylene Glycol 17 gm DAILYPRN PRN PO 10/03/24 00:45 Trazodone HCl 50 mg HS PO 10/03/24 22:00 Ceftriaxone Sodium 50 ml @ 100 mls/hr DAILY@09 IV 10/03/24 07:00 10/03/24 08:49 100 MLS/HR Doxycycline Hyclate 100 ml @ 50 mls/hr Q12HR IV 10/03/24 10:00 10/03/24 10:21 50 MLS/HR Furosemide 40 mg DAILY IV 10/04/24 10:00 Empaglifozin 10 mg DAILY PO 10/04/24 10:00 laboratory and microbiology Laboratory Tests 10/03/24 06:49 Test 10/03/24 06:49 Range/Units Serum Glucose 126 H 74-106 mg/dL Labs and/or images reviewed: Labs reviewed by me, Image(s) reviewed by me Problem List/Assessment/Plan Problem List/Assessment/Plan Acute intractable abdominal pain Intractable vomiting, 5 episodes Dehydration Lactic acidosis Rule out ACS ? Gastritis versus peptic ulcer disease Prolonged QTC Mild ascites - CT abdomen pelvis: CHF/volume overload, with mild cardiomegaly, mild interstitial pulmonary edema, small right pleural effusion, mesenteric venous congestion and mild ascites, mild body wall edema. Very mild nodular contour of the liver which could be fibrosis or less likely cirrhosis. Mild bladder wall thickening which could be related to chronic bladder outlet obstruction. Mild distal colonic diverticulosis. [id number] three-vessel calcified coronary artery disease. Mild aortic valve calcifications. - serial troponins 39, 39 - aspirin 162 mg once - IV NS 1 L once Hyperkalemia Chronic asymptomatic hyponatremia - hyperkalemia protocol - ordered serum osmolality, urine osmolality, urine sodium - monitor Thrombocytopenia, mild - monitor Hyperbilirubinemia Transaminitis - CT abdomen pelvis: Mesenteric venous congestion and mild ascites. Very mild nodular contour of the liver which could be fibrosis or less likely cirrhosis - monitor Acute on chronic CHF with reduced ejection fraction Right-sided pleural effusion Questionable community-acquired pneumonia, Gram-positive versus Gram-negative? pulmonary edema likely due to above - CXR: Borderline cardiomegaly. Small right pleural effusion. Mild pulmonary edema. Bibasilar airspace disease may represent atelectasis although pneumonia is not ruled out. - serum BNP 1680.72 - IV Lasix 40 mg once - ordered echocardiogram - ordered respiratory cultures, COVID, influenza testing - IV ceftriaxone, IV doxycycline Colonic diverticulosis without diverticulitis Constipation, likely slow transit - Colace 100 mg b.i.d., MiraLax 17 g as needed - monitor Grade 2 obesity - counselled extensively on lifestyle modification including healthy diet and activity History of depression - resumed home medication trazodone 50 mg q.p.m. - monitor History of asthma - ipratropium and albuterol med nebs Q 8 hours as needed PUD prophylaxis: protonix 40mg DVT prophylaxis: SCDs Goals of care: Full code, discussed for >20 minutes on 10/03/2024 Plan discussed with patient Plan discussed with Dr. Hopkins Plan discussed with: Patient, Spouse, Plan discussed with: Patient, Spouse Date of Service: Oct 03, 2024 Billing Provider: KASSIE HOPKINS MD Common Visit Codes: [id number] INP/OBS CARE(HIGH) ENMA VANEGAS RESIDENT Oct 03, 2024 15:07 KASSIE HOPKINS MD Oct 06, 2024 11:47
[2024-10-03 15:09] LABS: Cholesterol 125 mg/dL (< 200); HDL Cholesterol 34 mg/dL (40-59)
[2024-10-03] MEDS: FUROSEMIDE 40 MG/4 ML VIAL IV ONE (15:58)
--- NOTE | 2024-10-03 16:24 | DVHINCON2 ---
Date Seen: Oct 03, [address] Ordonez Reason for Consultation Possible low EF History of Present Illness 79-year-old male with a history of hypertension, dyslipidemia, asthma, depression, gout, and obesity was admitted for intractable abdominal pain and elevated liver enzymes. During the workup, a markedly reduced ejection fraction (EF approximately 10 % ) was noted on preliminary echocardiogram, prompting cardiology consultation to evaluate for underlying congestive heart failure. The patient reports progressive shortness of breath, exertional dyspnea, and orthopnea over the past year but denies chest pain, palpitations, syncope, or history of CHF or coronary artery disease. He has not previously been evaluated for heart failure symptoms. There is no history of myocardial infarction or cardiac procedure. On presentations, ECG showed sinus rhythm, conduction delay with RBBB, LPFB, and prolonged QTc (540 ms). Chest x-ray reveals cardiomegaly and pulmonary vascular congestion. BNP significantly elevated at 1680 pg/mL. The patient denies recent illness, fevers, or weight changes. Past Medical History As stated in HPI Past Surgical History Denies Family History: Patient reports no known family medical history. Family History Reviewed, non-contributory to the management of this case. Social History The patient lives at home, denies smoking, alcohol or illicit drugs abuse. Allergies: Coded Allergies: NO KNOWN ALLERGIES (Unverified , 08/31/24) Home Meds Active Scripts Ondansetron Odt 4MG Tab (ZOFRAN PO) 4 Mg Tb, 4 MG PO Q6HP PRN, #15 TAB ODT TAB-DISSOLVE IN MOUTH, THEN SWALLOW Prov:SANTA MON PAC 10/01/24 Dicyclomine Hcl (BENTYL CAPSULE) 10 Mg Cp, 1 CAP PO TID, #20 CAP 0 Refills Prov:SANTA OMN PAC 10/01/24 Current Medications Current Medications Medications (Trade) Dose Ordered Sig/Gideon Route PRN Reason Start Time Stop Time Status Last Admin Ipratropium [place] (Atrovent Medneb) 0.5 mg Q8HPRN PRN NEB SHORTNESS OF BREATH 10/02/24 23:15 Albuterol (Ventolin Medneb) 2.5 mg Q8HPRN PRN NEB SHORTNESS OF BREATH 10/02/24 23:15 Docusate Sodium (Colace Capsule) 100 mg BID PO 10/03/24 10:00 10/03/24 10:21 Polyethylene Glycol (Miralax 17GM Powder) 17 gm DAILYPRN PRN PO FOR CONSTIPATION 10/03/24 00:45 Trazodone HCl (Desyrel) 50 mg HS PO 10/03/24 22:00 Ceftriaxone Sodium 50 ml @ 100 mls/hr DAILY@09 IV 10/03/24 07:00 10/03/24 08:49 Doxycycline Hyclate 100 ml @ 50 mls/hr Q12HR IV 10/03/24 07:00 10/03/24 08:20 DC Doxycycline Hyclate 100 ml @ 50 mls/hr Q12HR IV 10/03/24 10:00 10/03/24 10:21 Furosemide (Lasix Injection) 40 mg DAILY IV 10/04/24 10:00 Empaglifozin (Jardiance) 10 mg DAILY PO 10/04/24 10:00 Review of Systems Constitutional: No symptom reported Ears, Nose, & Throat: No symptom reported Eyes: No symptom reported Neurological: No symptoms reported Pulmonary/Respiratory: Shortness of breath. Cardiovascular: Dyspnea on exertion, orthopnea. Denies chest pain, palpitation s, PND, or syncope. Gastrointestinal: No symptom reported Genitourinary: No symptom reported Musculoskeletal: No symptom reported Skin: No symptom reported Psychiatric: No symptom reported Endocrine: No symptom reported Hemotologic/Lymphatic: No symptom reported Vital Signs Vital Signs Date Time Temp Pulse Resp B/P (MAP) Pulse Ox O2 Delivery O2 Flow Rate FiO2 10/03/24 13:00 97.4 68 16 98/72 (81) 100 97.4 10/03/24 10:00 Room Air* 0 21 Physical Exam INITIAL VITAL SIGNS: Reviewed by me GENERAL: Alert and interactive. No acute distress. HEAD: Head is normocephalic and atraumatic. EYES: EOMI, PERRL. No scleral icterus. No conjunctival injection. ENT: Moist mucous membranes. NECK: Supple, No masses, Full range of motion. RESPIRATORY: No tachypnea. Clear breath sounds bilaterally. No wheezing, rales, rhonchi. CV: Regular rhythm, distant, murmur. Orthopnea, TORRE, no edema GI/: Active bowel sounds, soft, nondistended, nontender. No guarding. No rebound. No masses. No CVA tenderness. INTEGUMENTARY: Warm and dry. No obvious rashes. NEUROLOGIC: Alert and oriented. Face is symmetric. Speech is normal. Moves all extremities equally. Labs/Diagnostic Data Labs Test 10/03/24 06:49 10/03/24 02:50 10/03/24 00:10 10/02/24 23:18 Range/Units White Blood Count 8.0 4.4-10.8 10^3/uL Red Blood Count 4.07 L 4.5-5.90 10^6/uL Hemoglobin 14.1 13.5-17.5 g/dL Hematocrit 39.5 L 41.0-53.0 % Mean Corpuscular Volume 96.9 80.0-100.0 fL Mean Corpuscular Hemoglobin 34.6 H 28.0-32.0 pg Mean Corpuscular Hemoglobin Concent 35.7 32.0-36.0 g/dL Red Cell Distribution Width 15.9 H 11.8-14.3 % Platelet Count 138 L 140-450 10^3/uL Mean Platelet Volume 8.2 6.9-10.8 fL Neutrophils (%) (Auto) 74.8 37.0-80.0 % Lymphocytes (%) (Auto) 13.2 10.0-50.0 % Monocytes (%) (Auto) 10.6 0.0-12.0 % Eosinophils (%) (Auto) 1.0 0.0-7.0 % Basophils (%) (Auto) 0.4 0.0-2.0 % Neutrophils # (Auto) 6.0 1.6-8.6 10 ^3/uL Lymphocytes # (Auto) 1.1 0.4-5.4 10 ^3/uL Monocytes # (Auto) 0.9 0-1.3 10 ^3/uL Eosinophils # (Auto) 0.1 0-0.8 10 ^3/uL Basophils # (Auto) 0 0-0.2 10 ^3/uL Nucleated Red Blood Cells 0.4 % Sodium Level 130 #L 136-145 mmol/L Potassium Level 4.4 3.5-5.1 mmol/L Chloride Level 91 L 98-107 mmol/L Carbon Dioxide Level 29 20-31 mmol/L Anion Gap 10 5-15 Blood Urea Nitrogen 16 9-23 mg/dL Creatinine 1.03 0.700-1.30 mg/dL Glomerular Filtration Rate Calc 75 >90 mL/min BUN/Creatinine Ratio 15.5 10.0-20.0 Serum Glucose 126 H 74-106 mg/dL Hemoglobin A1c 5.7 <5.7 % A1C Calcium Level 8.9 8.7-10.4 mg/dL Triglycerides Level 122 < 150 mg/dL Cholesterol Level 125 < 200 mg/dL LDL Cholesterol 80 < 100 mg/dL HDL Cholesterol 34 L 40-59 mg/dL Serum Osmolality 275 L 278-298 mOsm/kg Influenza Type A Antigen Negative Negative Influenza Type B Antigen Negative Negative SARS-CoV-2 Antigen (Rapid) Negative NEGATIVE Lactic Acid Level 1.6 0.4-2.0 mmol/L Test 10/02/24 18:54 10/02/24 18:11 Range/Units Troponin I High Sensitivity 39 </=54 ng/L Prothrombin Time 14.1 H 9.3-11.8 sec Prothrombin Time INR 1.37 H 0.9-1.15 Magnesium Level 1.7 1.6-2.6 mg/dL Total Bilirubin 2.5 H 0.2-1.0 mg/dL Aspartate Amino Transferase (AST) 202 H 13-40 U/L Alanine Aminotransferase (ALT) 174 H 7-40 U/L Alkaline Phosphatase 111 46-116 U/L Total Protein 6.3 5.7-8.2 g/dL Albumin 4.3 3.2-4.8 g/dL Lipase 36 12-53 U/L Thyroid Stimulating Hormone (TSH) 2.42 0.55-4.78 uIU/mL PROCEDURE(s): CXRP - CHEST PORTABLE REASON: chest pain ORDER NUMBER(s): [id number], ACCESSION NUMBER(s): [id number] CHEST RADIOGRAPH REASON FOR EXAM: chest pain COMPARISON: None TECHNIQUE: One view of the chest is provided FINDINGS: The cardiomediastinal silhouette is borderline enlarged. There is mild pulmonary edema. There is small right pleural effusion. There is bibasilar airspace disease that may represent atelectasis although pneumonia is not ruled out. There is no pneumothorax. IMPRESSION: Borderline cardiomegaly. Small right pleural effusion. Mild pulmonary edema. Bibasilar airspace disease may represent atelectasis although pneumonia is not ruled out. Assessment Acute HFrEF (EF 10%) Possible cardiomyopathy Sinus rhythm with conduction delay and prolonged QTC Rule out CAD/ACS Elevated liver enzyme Hypertension Dyslipidemia Obesity Plan/Recommendation (Dr. Ge ): * Echocardiogram reviewed by Dr. Mehul Ge confirmed EF 10% * GDMT for HF ( Entresto, beta lex, spironolactone, Jardiance) up titrate as tolerated * The patient is advised to follow-up with cardiology in outpatient setting for possible biventricular ICD implantation and/or ischemic work-up * Continue IV diuresis for volume overload * Strict intake and output, daily weights, low-sodium diet, * Monitor renal function and electrolytes * Current antidepressant medication trazodone contributes to prolonged QTc, discontinue if possible This medical document was created using an electronic medical record system with voice recognition software and computerized dictation system. Although this doc ument has been carefully reviewed, there might still be some phonetic and typographical errors. Occasional wrong-word or ``sound-alike substitutions may have occurred due to the inherent limitations of voice recognition software. These areas are purely typographical due to imperfections of the software programs and do not reflect any compromise in the patient's medical care. Claudio garcia read the chart carefully and recognize, using context, where these substitutions have occurred. Plan discussed with: Patient Plan discussed with: Patient NYHA Physical activity limitations: Class2(Slight)fatigue,sob Date of Service: Oct 03, 2024 Billing Provider: ADRIÁN GE MD Cardiology Common Codes: CONSULT ONLY Cardiology Consultation Codes: [id number] CONSULT <45MIN NAYAN MENDOSAP Oct 03, 2024 16:23
--- NOTE | 2024-10-03 21:01 | DVHSR ---
APPROVED REPORT EXAM: Two-dimensional and M-mode echocardiogram with Doppler and color Doppler. Blood Pressure: 118/56 mmHg INDICATION CHF? RISK FACTORS Height: 70, Weight: 231 DIMENSIONS LVDd6.5 (3.8-5.7cm)LA (2D)5.0 (1.9-4.0cm)Aortic Root3.6 (2.0-3.7cm) LVDs5.9 (2.5-4.0cm)LA (MM) (1.9-4.0cm)Aortic Cusp Exc1.2 (1.5-2.0cm) EF (%) 20.0 (55-70%)Rt. Atrium5.5 (1.9-4.0cm)Asc. Aorta cm Mitral Valve MitralMitral Stenosis E wave0.65m/sMV Mean GR.mmHg A wave0.25m/sMV Peak GR.54mmHg E/A ratio2.62D MVAcm2 DECEL [id number] 1/2 Tim[place] Aortic Valve Aortic ValveAortic Stenosis V10.70m/Joce Mean GR.5mmHg V21.55m/Joce Peak GR.10mmHg LVOT Diameter2.1 (1.8-2.4cm)Doppler AVA1.56cm2 AI P 1/2 Pvda305.63ms Tricuspid Valve TR Velocity2.69m/s [id number] Other Information Technically limited study due to body habitus, patient position and patient moving. Conclusion DILATED ALL CARDIAC CHAMBERS SEVERE GLOBAL HYPKINESIS OF ALL CARDIAC CHAMBERS LV EF IS IN RANGE OF ONLY 10% MODERATE DEGREE MR MODERATE DEGREE TR HEAVILY CALCIFIED AORTIC LEAFLETS AND DECREASED EXCURSION AORTIC VALVE AREA IS 1.56 CM SQUARE IT IS MODERATE DEGREE AORTIC STENOSIS MODERATE DEGREE PULMONARY HYPERTENSION RVSP IS 50 MM OF HG AND IS MODERATELY HIGH NO EFFUSION
[2024-10-03] MEDS: SACUBITRIL-VALSARTAN 24mg/26mg TAB PO SCH (21:54)
--- NOTE | 2024-10-03 23:50 | DVHINCON2 ---
Date Seen: Oct 03, [address] Ordonez Reason for Consultation Possible low EF History of Present Illness This is a 79-year-old male with a past medical history of hypertension, dyslipidemia, asthma, depression, gout, and obesity was admitted for intractable abdominal pain and elevated liver enzymes. During the workup, a markedly reduced ejection fraction (EF approximately 10 % ) was noted on preliminary echocardiogram, prompting cardiology consultation to evaluate for underlying congestive heart failure. The patient reports progressive shortness of breath, exertional dyspnea, and orthopnea over the past year but denies chest pain, palpitations, syncope, or history of CHF or coronary artery disease. He has not previously been evaluated for heart failure symptoms. There is no history of myocardial infarction or cardiac procedure. On presentations, ECG showed sinus rhythm with RBBB, LPFB, and prolonged QTc (540 ms). Chest x-ray reveals cardiomegaly and pulmonary vascular congestion. BNP significantly elevated at 1680 pg/mL. The patient denies recent illness, fevers, or weight changes. Past Medical History As stated in HPI Past Surgical History Denies Family History: Patient reports no known family medical history. Allergies: Coded Allergies: NO KNOWN ALLERGIES (Unverified , 08/31/24) Home Meds Active Scripts Ondansetron Odt 4MG Tab (ZOFRAN PO) 4 Mg Tb, 4 MG PO Q6HP PRN, #15 TAB ODT TAB-DISSOLVE IN MOUTH, THEN SWALLOW Prov:SANTA MON PAC 10/01/24 Dicyclomine Hcl (BENTYL CAPSULE) 10 Mg Cp, 1 CAP PO TID, #20 CAP 0 Refills Prov:SANTA MON PAC 10/01/24 Current Medications Current Medications Medications (Trade) Dose Ordered Sig/Gideon Route PRN Reason Start Time Stop Time Status Last Admin Ipratropium [place] (Atrovent Medneb) 0.5 mg Q8HPRN PRN NEB SHORTNESS OF BREATH 10/02/24 23:15 Albuterol (Ventolin Medneb) 2.5 mg Q8HPRN PRN NEB SHORTNESS OF BREATH 10/02/24 23:15 Docusate Sodium (Colace Capsule) 100 mg BID PO 10/03/24 10:00 10/03/24 10:21 Polyethylene Glycol (Miralax 17GM Powder) 17 gm DAILYPRN PRN PO FOR CONSTIPATION 10/03/24 00:45 Trazodone HCl (Desyrel) 50 mg HS PO 10/03/24 22:00 Ceftriaxone Sodium 50 ml @ 100 mls/hr DAILY@09 IV 10/03/24 07:00 10/03/24 08:49 Doxycycline Hyclate 100 ml @ 50 mls/hr Q12HR IV 10/03/24 07:00 10/03/24 08:20 DC Doxycycline Hyclate 100 ml @ 50 mls/hr Q12HR IV 10/03/24 10:00 10/03/24 10:21 Furosemide (Lasix Injection) 40 mg DAILY IV 10/04/24 10:00 Empaglifozin (Jardiance) 10 mg DAILY PO 10/04/24 10:00 Review of Systems Constitutional: No symptom reported Ears, Nose, & Throat: No symptom reported Eyes: No symptom reported Neurological: No symptoms reported Pulmonary/Respiratory: Shortness of breath. Cardiovascular: Dyspnea on exertion, orthopnea. Denies chest pain, palpitations, PND, or syncope. Gastrointestinal: No symptom reported Genitourinary: No symptom reported Musculoskeletal: No symptom reported Skin: No symptom reported Psychiatric: No symptom reported Endocrine: No symptom reported Hemotologic/Lymphatic: No symptom reported Vital Signs Vital Signs Date Time Temp Pulse Resp B/P (MAP) Pulse Ox O2 Delivery O2 Flow Rate FiO2 10/03/24 15:58 117/96 10/03/24 13:00 97.4 68 16 100 97.4 10/03/24 10:00 Room Air* 0 21 Physical Exam GENERAL: Alert and oriented x 3. No acute distress. EYES: PERRL, EOMI. Anicteric. HENT: Moist mucous membranes. LUNGS: Clear to auscultation bilaterally. CARDIOVASCULAR: Regular rate and rhythm. ABDOMEN: Soft, nontender and nondistended. EXTREMITIES: No edema. NEUROLOGIC: No focal neurological deficits. SKIN: Warm, dry. Labs/Diagnostic Data Labs Test 10/03/24 06:49 10/03/24 02:50 10/03/24 00:10 10/02/24 23:18 Range/Units White Blood Count 8.0 4.4-10.8 10^3/uL Red Blood Count 4.07 L 4.5-5.90 10^6/uL Hemoglobin 14.1 13.5-17.5 g/dL Hematocrit 39.5 L 41.0-53.0 % Mean Corpuscular Volume 96.9 80.0-100.0 fL Mean Corpuscular Hemoglobin 34.6 H 28.0-32.0 pg Mean Corpuscular Hemoglobin Concent 35.7 32.0-36.0 g/dL Red Cell Distribution Width 15.9 H 11.8-14.3 % Platelet Count 138 L 140-450 10^3/uL Mean Platelet Volume 8.2 6.9-10.8 fL Neutrophils (%) (Auto) 74.8 37.0-80.0 % Lymphocytes (%) (Auto) 13.2 10.0-50.0 % Monocytes (%) (Auto) 10.6 0.0-12.0 % Eosinophils (%) (Auto) 1.0 0.0-7.0 % Basophils (%) (Auto) 0.4 0.0-2.0 % Neutrophils # (Auto) 6.0 1.6-8.6 10 ^3/uL Lymphocytes # (Auto) 1.1 0.4-5.4 10 ^3/uL Monocytes # (Auto) 0.9 0-1.3 10 ^3/uL Eosinophils # (Auto) 0.1 0-0.8 10 ^3/uL Basophils # (Auto) 0 0-0.2 10 ^3/uL Nucleated Red Blood Cells 0.4 % Sodium Level 130 #L 136-145 mmol/L Potassium Level 4.4 3.5-5.1 mmol/L Chloride Level 91 L 98-107 mmol/L Carbon Dioxide Level 29 20-31 mmol/L Anion Gap 10 5-15 Blood Urea Nitrogen 16 9-23 mg/dL Creatinine 1.03 0.700-1.30 mg/dL Glomerular Filtration Rate Calc 75 >90 mL/min BUN/Creatinine Ratio 15.5 10.0-20.0 Serum Glucose 126 H 74-106 mg/dL Hemoglobin A1c 5.7 <5.7 % A1C Calcium Level 8.9 8.7-10.4 mg/dL B-Type Natriuretic Peptide 1640.62 0-100 pg/mL Triglycerides Level 122 < 150 mg/dL Cholesterol Level 125 < 200 mg/dL LDL Cholesterol 80 < 100 mg/dL HDL Cholesterol 34 L 40-59 mg/dL Serum Osmolality 275 L 278-298 mOsm/kg Influenza Type A Antigen Negative Negative Influenza Type B Antigen Negative Negative SARS-CoV-2 Antigen (Rapid) Negative NEGATIVE Lactic Acid Level 1.6 0.4-2.0 mmol/L Test 10/02/24 18:54 10/02/24 18:11 Range/Units Troponin I High Sensitivity 39 </=54 ng/L Prothrombin Time 14.1 H 9.3-11.8 sec Prothrombin Time INR 1.37 H 0.9-1.15 Magnesium Level 1.7 1.6-2.6 mg/dL Total Bilirubin 2.5 H 0.2-1.0 mg/dL Aspartate Amino Transferase (AST) 202 H 13-40 U/L Alanine Aminotransferase (ALT) 174 H 7-40 U/L Alkaline Phosphatase 111 46-116 U/L Total Protein 6.3 5.7-8.2 g/dL Albumin 4.3 3.2-4.8 g/dL Lipase 36 12-53 U/L Thyroid Stimulating Hormone (TSH) 2.42 0.55-4.78 uIU/mL Assessment Rule out acute congestive heart failure. Possible HFrEF on preliminary reading (approx. EF 10%). Possible cardiomyopathy. Sinus rhythm with prolonged QTC. Rule out CAD/ACS. Elevated liver enzyme. Hypertension. Dyslipidemia. Obesity. Plan/Recommendation I agree with your ongoing assessment and care of plan. Patient has been seen by Laurie Flores NP on my behalf, her and I discussed the plan with the patient. Continue IV diuresis for volume overload. Strict intake and output, daily weights, low-sodium diet,. Monitor renal function and electrolytes. Initiate GDMT for HF once confirmed. Possible ischemic workup to evaluate for ischemia. Current antidepressant medication trazodone contributes to prolonged QTc, discontinue if possible. Additional plan as per the hospital course. Plan discussed with: Patient NYHA Physical activity limitations: Class2(Slight)fatigue,sob Date of Service: Oct 03, 2024 Billing Provider: ADRIÁN OGDEN MD Cardiology Common Codes: 34721-[id number] INP/OBS CARE (High) Cardiology Consultation Codes: 64526-[id number] CONSULT <45MIN ADRIÁN OGDEN MD Oct 03, 2024 16:56
[2024-10-04] VITALS (11 sets, daily range): BP systolic 86–133; BP diastolic 47–93; PULSE 57–111; RESP 17–20; TEMP 97.4–98.6; O2SAT 92–99
--- NOTE | 2024-10-04 07:28 | DVH ---
CHEST RADIOGRAPH Indication: chf Technique: Single frontal view of the chest was obtained COMPARISON: CT CT CHEST/AB/PL W CON- IV ONLY on DOS: 10/02/24, XY CHEST PORTABLE on DOS: 10/02/24 FINDINGS: Lines and Tubes: None Lungs: Progressive right basilar pulmonary airspace disease. Suspected small bilateral pleural effusi ons. No pneumothorax. Cardiomediastinal contours: Unremarkable Bones: Unremarkable IMPRESSION: 1. Progressive right basilar pulmonary airspace disease and suspected small bilateral pleural effusio ns.
[2024-10-04 09:02] LABS: Hematocrit 41.9 % (41.0-53.0); Hemoglobin 14.4 g/dL (13.5-17.5); Mean Corpuscular Hemoglobin 33.7 pg (28.0-32.0); Mean Corpuscular Volume 98.1 fL (80.0-100.0); Nucleated Red Blood Cells % 0.3 %
[2024-10-04 09:05] LABS: Anion Gap 7 (5-15); Potassium 4.3 mmol/L (3.5-5.1); Sodium 136 mmol/L (136-145)
[2024-10-04 09:06] LABS: Calcium 8.9 mg/dL (8.7-10.4)
[2024-10-04 09:11] LABS: BUN/Creatinine Ratio 18.8 (10.0-20.0); Blood Urea Nitrogen 16 mg/dL (9-23); Glucose 84 mg/dL (74-106); Magnesium 2.1 mg/dL (1.6-2.6)
[2024-10-04 09:14] LABS: Carbon Dioxide 33 mmol/L (20-31); Chloride 96 mmol/L (98-107)
--- NOTE | 2024-10-04 10:29 | ECG ---
[facility] Test Date: 2024-10-02 Test Time: 18:04:25 Pat Name: JEANETH LOPEZ Department: Room: 0219T B Gender: M Broadband Engineer: CORNELIA : 1945 Requested By: NUZHAT GUERRERO Order Number: [id number] Reading MD: Adonis Mcmillan Measurements Intervals [place] Rate: 76 P: 71 VA: 205 QRS: 91 QRSD: 195 T: 14 QT: 488 QTc: 549 Interpretive Statements Sinus rhythm Ventricular bigeminy RBBB and LPFB Electronically Signed On 10-04-2024 22:55:43 PDT by Adonis Mcmillan Please click the below link to view image of tracing.
[2024-10-04] MEDS: EMPAGLIFLOZIN 10 MG TAB PO SCH (10:39)
[2024-10-04] MEDS: FUROSEMIDE 40 MG/4 ML VIAL IV SCH (10:39)
[2024-10-04 11:16] LABS: Hepatitis A Total Antibody Positive (Negative)
[2024-10-04 11:17] LABS: Hepatitis B Surface Antigen Negative (Negative); Hepatitis C Antibody Negative (Negative)
[2024-10-04] MEDS: ACETAMINOPHEN 325 MG TAB PO ONE (16:09)
--- NOTE | 2024-10-04 18:42 | DVHPNRES ---
Progress Note Date Seen: Oct 04, 2024 Resident Creating Document: ENMA VANEGAS RESIDENT Medical Necessity Reason Pt with a Central, PICC or Fol: No Subjective Review of Systems Patient is a 79-year-old male with past medical history of hypertension, dyslipidemia, asthma, depression, gout who came in due to generalized abdominal pain. According to the patient, pain has been ongoing for the last 4-5 days and is associated with intermittent nausea and vomiting, he describes the abdominal pain is cramping and located in the epigastric region with radiation to the midsternal chest area. Patient was evaluated in the ED yesterday for similar symptoms and discharged with Bentyl but symptoms continued to worsen which prompted this visit to the hospital. Patient also notes having nausea and chills along with 5 episodes of vomiting, he notes abdominal pain worsens with vomiting. The patient also had dizziness during this time. Of note, patient also takes ibuprofen once daily for the past 5-6 years. Patient notes 1 week ago he drank 1 bottle of Tequila, however, notes usually he will only drink alcohol occasionally. On review of systems patient is complaining of fatigue, chills, productive cough, shortness of breath, nausea, vomiting and constipation. The patient still has shortness of breath but the abdominal pain has reduced. The patient mentions having trouble falling asleep since the last one month. BNP was 1640 and EKG showed sinus rhythm with RBBB, LPFB and prolonged QTc. Chest xray showed cardiomegaly with small right pleural effusion and bibasilar atelectasis in the lungs. CT showed CHF/volume overload with mild cardiomegaly and mild to moderate 3 vessel calcified CAD. Hence an Echo was ordered for the patient for further evaluation and workup which showed EF of 10% on preliminary evaluation. He was started on 2l oxygen. Patient uses BiPAP at home while sleeping at night. Echo showed dilated chambers of the heart with left ventricular ejection fraction of 10% and Cardiology asked him to follow up outpatient for possible placement of biventricular ICD. He is on 4 L oxygen by nasal cannula he is tolerating it well. Past Medical History Hypertension, dyslipidemia, asthma, depression, gout Past Social History Smoking: Denies Alcohol: Occasionally, wine and Tequila Drugs: Denies Constitutional: ; No: Fever, Sweats, Weakness, Malaise, Other Eyes: No: Pain, Vision change, Conjunctivae inflammation, Eyelid inflammation, Other, Redness ENT: No: Ear pain, Ear discharge, Nose pain, Nose discharge, Nose congestion, Mouth pain, Mouth swelling, Throat pain, Throat swelling, Other Respiratory: Cough, Shortness of breath; No: SOB with excertion, Wheezing, Hemoptysis, Pleuritic Pain, Sputum, Wheezing, Other Cardiovascular: No: Chest Pain, Palpitations, Orthopnea, Paroxysmal Noc. Dyspnea, Edema, Lt Headedness, Other Gastrointestinal: no Nausea, Vomiting, Abdominal Pain, Constipation; No: Diarrhea, Melena, Hematochezia, Other Genitourinary: No Dysuria, No Frequency, No Incontinence, No Hematuria, No Retention, No Other Musculoskeletal: No: other, neck pain, shoulder pain, arm pain, back pain, hand pain, leg pain, foot pain Skin: No: Rash, Lesions, Jaundice, Bruising, Other Neurological: No: Weakness, Numbness, Incoordination, Change in speech, Confusion, Seizures, Other Allergies: no known allergies Objective vital signs Vital Sign Date Time Temp Pulse Resp B/P (MAP) Pulse Ox O2 Delivery O2 Flow Rate FiO2 10/04/24 16:58 98.6 57 18 101/74 (83) 97 98.6 10/04/24 10:00 Room Air* 0 21 Total Intake and Output 10/03/24 10/03/24 10/04/24 15:00 23:00 07:00 Intake Total 150 ml 700 ml 400 ml Output Total 350 ml Balance 150 ml 700 ml 50 ml medications Current Medications Medications Dose Ordered Sig/Gideon Route Start Time Stop Time Status Last Admin Dose Admin Ipratropium [place] 0.5 mg Q8HPRN PRN NEB 10/02/24 23:15 Albuterol 2.5 mg Q8HPRN PRN NEB 10/02/24 23:15 Docusate Sodium 100 mg BID PO 10/03/24 10:00 10/04/24 10:39 100 MG Polyethylene Glycol 17 gm DAILYPRN PRN PO 10/03/24 00:45 Ceftriaxone Sodium 50 ml @ 100 mls/hr DAILY@09 IV 10/03/24 07:00 10/04/24 09:08 100 MLS/HR Doxycycline Hyclate 100 ml @ 50 mls/hr Q12HR IV 10/03/24 10:00 10/04/24 10:40 50 MLS/HR Furosemide 40 mg DAILY IV 10/04/24 10:00 10/04/24 10:39 40 MG Empaglifozin 10 mg DAILY PO 10/04/24 10:00 10/04/24 10:39 10 MG Sacubitril/ Valsartan 1 tab BID PO 10/03/24 22:00 10/04/24 10:39 1 TAB Acetaminophen 650 mg Q6HP PRN PO 10/04/24 16:00 Examination General Appearance: Alert, Oriented X3, Cooperative, No acute distress HEENT: Atraumatic, PERRLA, EOMI, Other (Dry mucous membranes) Respiratory: Normal air movement, Other (Coarse bilateral breath sounds) Cardiovascular: Regular rate, Normal S1, Normal S2 Abdominal: Normal bowel sounds, Soft, obese abdomen,no tenderness Extremities: Other (1+ lower extremity pitting edema) Skin: No rashes Neuro: Normal speech Psych/Mental Status: Mental status NL, Mood NL laboratory and microbiology Laboratory Tests 10/04/24 07:41 Test 10/04/24 07:41 Range/Units Serum Glucose 84 74-106 mg/dL Microbiology Date/Time Source Procedure Growth Status 10/03/24 10:32 Nose MRSA Screen - Final Complete 10/02/24 23:22 Blood Blood Culture - Preliminary NO GROWTH AFTER 24 HOURS OF INCUBATION. Resulted Labs and/or images reviewed: Labs reviewed by me, Image(s) reviewed by me Problem List/Assessment/Plan Problem List/Assessment/Plan Lactic acidosis Rule out ACS ? Gastritis versus peptic ulcer disease Prolonged QTC Mild ascites - CT abdomen pelvis: CHF/volume overload, with mild cardiomegaly, mild interstitial pulmonary edema, small right pleural effusion, mesenteric venous congestion and mild ascites, mild body wall edema. Very mild nodular contour of the liver which could be fibrosis or less likely cirrhosis. Mild bladder wall thickening which could be related to chronic bladder outlet obstruction. Mild distal colonic diverticulosis. [id number] three-vessel calcified coronary artery disease. Mild aortic valve calcifications. - serial troponins 39, 39 - aspirin 162 mg once - IV NS 1 L once Hyperkalemia Chronic asymptomatic hyponatremia - hyperkalemia protocol - ordered serum osmolality, urine osmolality, urine sodium - monitor Thrombocytopenia, mild - monitor Hyperbilirubinemia Transaminitis - CT abdomen pelvis: Mesenteric venous congestion and mild ascites. Very mild nodular contour of the liver which could be fibrosis or less likely cirrhosis - monitor Acute on chronic CHF with reduced ejection fraction Right-sided pleural effusion Questionable community-acquired pneumonia, Gram-positive versus Gram-negative? pulmonary edema likely due to above - CXR: Borderline cardiomegaly. Small right pleural effusion. Mild pulmonary edema. Bibasilar airspace disease may represent atelectasis although pneumonia is not ruled out. - serum BNP 1680.72 - IV Lasix 40 mg once - ordered echocardiogram - ordered respiratory cultures, COVID, influenza testing - IV ceftriaxone, IV doxycycline Colonic diverticulosis without diverticulitis Constipation, likely slow transit - Colace 100 mg b.i.d., MiraLax 17 g as needed - monitor Grade 2 obesity - counselled extensively on lifestyle modification including healthy diet and activity History of depression - resumed home medication trazodone 50 mg q.p.m. - monitor History of asthma - ipratropium and albuterol med nebs Q 8 hours as needed PUD prophylaxis: protonix 40mg DVT prophylaxis: SCDs Goals of care: Full code, discussed for >20 minutes on 10/04/2024 Plan discussed with patient Plan discussed with Dr. Kam Plan discussed with: Patient, Spouse, Plan discussed with: Patient My Orders My Orders Orders - ENMA VANEGAS Procedure Category Date Status Time Acetaminophen Tablet PHA 10/04/24 In Process (Tylenol Tablet) 16:00 Date of Service: Oct 04, 2024 Billing Provider: CORRIE KAM MD Common Visit Codes: [id number] INP/OBS CARE(HIGH) ENMA VANEGAS Oct 04, 2024 18:42 CORRIE KAM MD Oct 05, 2024 19:23
[2024-10-04] MEDS: ACETAMINOPHEN 325 MG TAB PO PRN (21:21)
[2024-10-05] VITALS (12 sets, daily range): BP systolic 93–140; BP diastolic 55–89; PULSE 52–84; RESP 17–18; TEMP 96.9–98; O2SAT 93–99
--- NOTE | 2024-10-05 00:19 | DVHPN2 ---
Progress Note - Dictate Date Seen: Oct 04, 2024 Medical Necessity Reason Pt with a Central, PICC or Fol: No Subjective Patient was seen and evaluated in follow up. Patient is on 4 LPM NC. Echo showed dilated chambers of the heart with left ventricular ejection fraction of 10%. Patient recommended to follow up outpatient for possible placement of biventricular ICD. Telemetry reviewed. vital signs Vital Sign Date Time Temp Pulse Resp B/P (MAP) Pulse Ox O2 Delivery O2 Flow Rate FiO2 10/04/24 21:00 97.5 84 18 91/66 (74) 95 97.5 10/04/24 10:00 Room Air* 0 21 Total Intake and Output 10/04/24 10/04/24 10/05/24 15:00 23:00 07:00 Intake Total 50 ml 800 ml Balance 50 ml 800 ml medications Current Medications Medications Dose Ordered Sig/Gideon Route Start Time Stop Time Status Last Admin Dose Admin Ipratropium [place] 0.5 mg Q8HPRN PRN NEB 10/02/24 23:15 Albuterol 2.5 mg Q8HPRN PRN NEB 10/02/24 23:15 Docusate Sodium 100 mg BID PO 10/03/24 10:00 10/04/24 21:21 100 MG Polyethylene Glycol 17 gm DAILYPRN PRN PO 10/03/24 00:45 Ceftriaxone Sodium 50 ml @ 100 mls/hr DAILY@09 IV 10/03/24 07:00 10/04/24 09:08 100 MLS/HR Doxycycline Hyclate 100 ml @ 50 mls/hr Q12HR IV 10/03/24 10:00 10/04/24 21:27 50 MLS/HR Furosemide 40 mg DAILY IV 10/04/24 10:00 10/04/24 10:39 40 MG Empaglifozin 10 mg DAILY PO 10/04/24 10:00 10/04/24 10:39 10 MG Sacubitril/ Valsartan 1 tab BID PO 10/03/24 22:00 10/04/24 21:21 1 TAB Acetaminophen 650 mg Q6HP PRN PO 10/04/24 16:00 10/04/24 21:21 650 MG objective GENERAL: Alert and oriented x 3. No acute distress. EYES: PERRL, EOMI. Anicteric. HENT: Moist mucous membranes. LUNGS: Clear to auscultation bilaterally. CARDIOVASCULAR: Regular rate and rhythm. ABDOMEN: Soft, nontender and nondistended. EXTREMITIES: No edema. NEUROLOGIC: No focal neurological deficits. SKIN: Warm, dry. laboratory and microbiology Laboratory Tests 10/04/24 07:41 Test 10/04/24 07:41 Range/Units Serum Glucose 84 74-106 mg/dL Problem List Rule out acute congestive heart failure. Possible HFrEF on preliminary reading (approx. EF 10%). Possible cardiomyopathy. Sinus rhythm with prolonged QTC. Rule out CAD/ACS. Elevated liver enzyme. Hypertension. Dyslipidemia. Obesity. Assessment/Plan Continued all current supportive medical care. IV antibiotics as ordered. Diuretics with Lasix. Entresto. Additional plan as per the hospital course. Plan discussed with: Patient ADRIÁN OGDEN MD Oct 05, 2024 00:18
[2024-10-05 06:33] LABS: Anion Gap 7 (5-15); Hematocrit 44.8 % (41.0-53.0); Hemoglobin 15.3 g/dL (13.5-17.5); Mean Corpuscular Hemoglobin 33.7 pg (28.0-32.0); Mean Corpuscular Volume 98.7 fL (80.0-100.0); Nucleated Red Blood Cells % 0.3 %; Potassium 4.0 mmol/L (3.5-5.1); Sodium 137 mmol/L (136-145)
[2024-10-05 06:35] LABS: Calcium 8.7 mg/dL (8.7-10.4)
[2024-10-05 06:39] LABS: Glucose 82 mg/dL (74-106)
[2024-10-05 06:40] LABS: BUN/Creatinine Ratio 14.8 (10.0-20.0); Blood Urea Nitrogen 13 mg/dL (9-23)
[2024-10-05 06:43] LABS: Carbon Dioxide 32 mmol/L (20-31); Chloride 98 mmol/L (98-107)
[2024-10-05] MEDS ORDERED: FURO1TAB33 PO (08:24)
[2024-10-05] MEDS ORDERED: EMPA1TAB PO (08:24)
[2024-10-05] MEDS ORDERED: SACU1TAB PO (08:24)
--- NOTE | 2024-10-05 14:37 | DVHPNRES ---
Progress Note Date Seen: Oct 05, 2024 Resident Creating Document: ENMA VANEGAS RESIDENT Medical Necessity Reason Pt with a Central, PICC or Fol: No Subjective Review of Systems Patient is a 79-year-old male with past medical history of hypertension, dyslipidemia, asthma, depression, gout who came in due to generalized abdominal pain. According to the patient, pain has been ongoing for the last 4-5 days and is associated with intermittent nausea and vomiting, he describes the abdominal pain is cramping and located in the epigastric region with radiation to the midsternal chest area. Patient was evaluated in the ED yesterday for similar symptoms and discharged with Bentyl but symptoms continued to worsen which prompted this visit to the hospital. Patient also notes having nausea and chills along with 5 episodes of vomiting, he notes abdominal pain worsens with vomiting. The patient also had dizziness during this time. Of note, patient also takes ibuprofen once daily for the past 5-6 years. Patient notes 1 week ago he drank 1 bottle of Tequila, however, notes usually he will only drink alcohol occasionally. On review of systems patient is complaining of fatigue, chills, productive cough, shortness of breath, nausea, vomiting and constipation. 10/03-The patient still has shortness of breath but the abdominal pain has reduced. The patient mentions having trouble falling asleep since the last one month. BNP was 1640 and EKG showed sinus rhythm with RBBB, LPFB and prolonged QTc. Chest xray showed cardiomegaly with small right pleural effusion and bibasilar atelectasis in the lungs. CT showed CHF/volume overload with mild cardiomegaly and mild to moderate 3 vessel calcified CAD. Hence an Echo was ordered for the patient for further evaluation and workup which showed EF of 10% on preliminary evaluation. He was started on 2l oxygen. 10/04-Patient uses CPAP at home while sleeping at night. Echo showed dilated chambers of the heart with left ventricular ejection fraction of 10% and Cardiology asked him to follow up outpatient for possible placement of biventricular ICD. He is on 4 L oxygen by nasal cannula he is tolerating it well. 10/05-Patient has mild fatigue and is tolerating the 4 l oxygen well. The nurse mentioned patient has VTach when he stands up and walks a little. Cardiology and social work manager were consulted regarding providing patient with a Life Vest till the placement of a biventricular ICD as recommended by cardiology. No adverse vents overnight. Past Medical History Hypertension, dyslipidemia, asthma, depression, gout Past Social History Smoking: Denies Alcohol: Occasionally, wine and Tequila Drugs: Denies Constitutional: malaise, No: Fever, Sweats, Weakness, Eyes: No: Pain, Vision change, Conjunctivae inflammation, Eyelid inflammation, Redness ENT: No: Ear pain, Ear discharge, Nose pain, Nose discharge, Nose congestion, Mouth pain, Mouth swelling, Throat pain, Throat swelling Respiratory: Cough, Shortness of breath; No: SOB with excertion, Wheezing, Hemoptysis, Pleuritic Pain, Sputum, Wheezing Cardiovascular: No: Chest Pain, Palpitations, Orthopnea, Paroxysmal Noc. Dyspnea, Edema, Lt Headednes Gastrointestinal: no Nausea, Vomiting, Abdominal Pain, Constipation; No: Diarrhea, Melena, Hematochezia Genitourinary: No Dysuria, No Frequency, No Incontinence, No Hematuria, No Retention Musculoskeletal: No: neck pain, shoulder pain, arm pain, back pain, hand pain, leg pain, foot pain Skin: No: Rash, Lesions, Jaundice, Bruising Neurological: No: Weakness, Numbness, Incoordination, Change in speech, Confusion, Seizures Allergies: no known allergies Objective vital signs Vital Sign Date Time Temp Pulse Resp B/P (MAP) Pulse Ox O2 Delivery O2 Flow Rate FiO2 10/05/24 13:09 97.5 73 18 101/72 (82) 94 97.5 10/05/24 10:00 Room Air 2.0 10/05/24 10:00 21 Total Intake and Output 10/04/24 10/04/24 10/05/24 15:00 23:00 07:00 Intake Total 50 ml 800 ml 850 ml Output Total 1250 ml Balance 50 ml 800 ml -400 ml medications Current Medications Medications Dose Ordered Sig/Gideon Route Start Time Stop Time Status Last Admin Dose Admin Ipratropium [place] 0.5 mg Q8HPRN PRN NEB 10/02/24 23:15 Albuterol 2.5 mg Q8HPRN PRN NEB 10/02/24 23:15 Docusate Sodium 100 mg BID PO 10/03/24 10:00 10/05/24 09:15 100 MG Polyethylene Glycol 17 gm DAILYPRN PRN PO 10/03/24 00:45 Ceftriaxone Sodium 50 ml @ 100 mls/hr DAILY@09 IV 10/03/24 07:00 10/05/24 09:14 100 MLS/HR Doxycycline Hyclate 100 ml @ 50 mls/hr Q12HR IV 10/03/24 10:00 10/05/24 11:07 50 MLS/HR Furosemide 40 mg DAILY IV 10/04/24 10:00 10/05/24 09:15 40 MG Empaglifozin 10 mg DAILY PO 10/04/24 10:00 10/05/24 09:15 10 MG Sacubitril/ Valsartan 1 tab BID PO 10/03/24 22:00 10/05/24 09:15 1 TAB Acetaminophen 650 mg Q6HP PRN PO 10/04/24 16:00 10/04/24 21:21 650 MG Examination General Appearance: Alert, Oriented X3, Cooperative, No acute distress HEENT: Atraumatic, PERRLA, EOMI, Other (Dry mucous membranes) Respiratory: Normal air movement, Other (Coarse bilateral breath sounds) Cardiovascular: Regular rate, Normal S1, Normal S2 Abdominal: Normal bowel sounds, Soft, obese abdomen,no tenderness Extremities: Other (1+ lower extremity pitting edema) Skin: No rashes Neuro: Normal speech Psych/Mental Status: Mental status NL, Mood NL laboratory and microbiology Laboratory Tests 10/05/24 05:30 Test 10/05/24 05:30 Range/Units Serum Glucose 82 74-106 mg/dL Microbiology Date/Time Source Procedure Growth Status 10/03/24 10:32 Nose MRSA Screen - Final Complete 10/02/24 23:22 Blood Blood Culture - Preliminary NO GROWTH AFTER 48 HOURS OF INCUBATION. Resulted Labs and/or images reviewed: Labs reviewed by me, Image(s) reviewed by me Problem List/Assessment/Plan Problem List/Assessment/Plan Lactic acidosis Ruled out ACS ? Gastritis versus peptic ulcer disease Prolonged QTC Mild ascites - CT abdomen pelvis: CHF/volume overload, with mild cardiomegaly, mild interstitial pulmonary edema, small right pleural effusion, mesenteric venous congestion and mild ascites, mild body wall edema. Very mild nodular contour of the liver which could be fibrosis or less likely cirrhosis. Mild bladder wall thickening which could be related to chronic bladder outlet obstruction. Mild distal colonic diverticulosis. [id number] three-vessel calcified coronary artery disease. Mild aortic valve calcifications. - serial troponins 39, 39 - aspirin 162 mg once - IV NS 1 L once Hyperkalemia Chronic asymptomatic hyponatremia - hyperkalemia protocol - ordered serum osmolality, urine osmolality, urine sodium - monitor Thrombocytopenia, mild - monitor Hyperbilirubinemia Transaminitis - CT abdomen pelvis: Mesenteric venous congestion and mild ascites. Very mild nodular contour of the liver which could be fibrosis or less likely cirrhosis - monitor De roxy Acute on chronic CHF with reduced ejection fraction Right-sided pleural effusion Questionable community-acquired pneumonia, Gram-positive versus Gram-negative? pulmonary edema likely due to above Dilated cardiomyopathy, ?ischemic Paroxysmal atrial fibrillation with RVR, now NSR - CXR: Borderline cardiomegaly. Small right pleural effusion. Mild pulmonary edema. Bibasilar airspace disease may represent atelectasis although pneumonia is not ruled out. - serum BNP 1680.72 - IV Lasix 40 mg once - ordered echocardiogram - ordered respiratory cultures, COVID, influenza testing - IV ceftriaxone, IV doxycycline Colonic diverticulosis without diverticulitis Constipation, likely slow transit - Colace 100 mg b.i.d., MiraLax 17 g as needed - monitor Grade 2 obesity - counselled extensively on lifestyle modification including healthy diet and activity History of depression - resumed home medication trazodone 50 mg q.p.m., discontinued by cardiology for adverse effect of QT prolongation - monitor History of asthma - ipratropium and albuterol med nebs Q 8 hours as needed PUD prophylaxis: protonix 40mg DVT prophylaxis: SCDs Goals of care: Full code, discussed for >20 minutes on 10/05/2024 Plan discussed with patient Plan discussed with Dr. Kam Plan discussed with: Patient Plan discussed with: Patient My Orders My Orders Orders - ENMA VANEGAS RESIDENT Procedure Category Date Status Time Acetaminophen Tablet PHA 10/04/24 In Process (Tylenol Tablet) 16:00 Date of Service: Oct 05, 2024 Billing Provider: CORRIE KAM MD Common Visit Codes: [id number] INP/OBS CARE(HIGH) ENMA VANEGAS RESIDENT Oct 05, 2024 14:37 CORRIE KAM MD Oct 05, 2024 19:23
[2024-10-05] MEDS: MAGNESIUM SULFATE 1GM/100ML 100 ML IV ONE (15:30)
--- NOTE | 2024-10-05 15:32 | DVHPN2 ---
Consult Progress Note Date Seen: Oct 05, 2024 Subjective Review of Systems: CVS:Normal, RESPIRATORY:Normal, NEURO:Normal Other Systems: Notified of a-fib with RVR events while ambulating to the bathroom Objective vital signs Vital Sign Date Time Temp Pulse Resp B/P (MAP) Pulse Ox O2 Delivery O2 Flow Rate FiO2 10/05/24 13:09 97.5 73 18 101/72 (82) 94 97.5 10/05/24 10:00 Room Air 2.0 10/05/24 10:00 21 Total Intake and Output 10/04/24 10/04/24 10/05/24 15:00 23:00 07:00 Intake Total 50 ml 800 ml 850 ml Output Total 1250 ml Balance 50 ml 800 ml -400 ml medications Current Medications Medications Dose Ordered Sig/Gideon Route Start Time Stop Time Status Last Admin Dose Admin Ipratropium [place] 0.5 mg Q8HPRN PRN NEB 10/02/24 23:15 Albuterol 2.5 mg Q8HPRN PRN NEB 10/02/24 23:15 Docusate Sodium 100 mg BID PO 10/03/24 10:00 10/05/24 09:15 100 MG Polyethylene Glycol 17 gm DAILYPRN PRN PO 10/03/24 00:45 Ceftriaxone Sodium 50 ml @ 100 mls/hr DAILY@09 IV 10/03/24 07:00 10/05/24 09:14 100 MLS/HR Doxycycline Hyclate 100 ml @ 50 mls/hr Q12HR IV 10/03/24 10:00 10/05/24 11:07 50 MLS/HR Furosemide 40 mg DAILY IV 10/04/24 10:00 10/05/24 09:15 40 MG Empaglifozin 10 mg DAILY PO 10/04/24 10:00 10/05/24 09:15 10 MG Sacubitril/ Valsartan 1 tab BID PO 10/03/24 22:00 10/05/24 09:15 1 TAB Acetaminophen 650 mg Q6HP PRN PO 10/04/24 16:00 10/04/24 21:21 650 MG Examination: LUNGS:Normal, CVS:Normal, NEURO:Normal laboratory and microbiology Laboratory Tests 10/05/24 05:30 Test 10/05/24 05:30 Range/Units Serum Glucose 82 74-106 mg/dL Problem List/Assessment/Plan Problem List/Assessment/Plan [place] decompensated HFrEF (EF 10%) Dilated cardiomyopathy, ?ischemic Paroxysmal atrial fibrillation with RVR, now NSR Elevated liver enzyme Hypertension Dyslipidemia Obesity Plan/Recommendation (Dr. Ge ) * Echocardiogram reviewed by Dr. Mehul Ge confirmed EF 10% * GDMT for HF ( Entresto, jardiance, and beta lex with parameters for HR >60 bpm) up titrate as tolerated * Mineralocorticoid held secondary to hyperkalemia * Initiate LifeVest x 3 months * Preload and afterload reduction as tolerated * Strict intake and output, daily weights, low-sodium diet, * Initiate antiarrhythmic therapy with amiodarone BID including bolus IV * Replete electrolytes as necessary, K>4 and Mg>2 * Monitor ECG changes closely and notify * Initiate DVT/VTE prophylaxis Conversation and discussion of case held with Dr. Ge who does not advise for in-patient invasive cardiac work-up. The patient can benefit from an outpatient coronary angiogram with cardiac catheterization given [place] CHF. In the meantime maximize medical therapy and initiate LifeVest x 3 months. If no improvement of LVEF within three months of GDMT for CHF, the patient may be a candidate for an ICD device. Follow-up with a primary meal temperer within 1-2 weeks post-discharge. Thank you for allowing us to care for this patient. Please call with any questions or concerns. This medical document was created using an electronic medical record system with voice recognition software and computerized dictation system. Although this document has been carefully reviewed, there might still be some phonetic and typographical errors. Occasional wrong-word or ``sound-alike substitutions may have occurred due to the inherent limitations of voice recognition software. These areas are purely typographical due to imperfections of the software programs and do not reflect any compromise in the patient's medical care. Please read the chart carefully and recognize, using context, where these substitutions have occurred. Plan discussed with: Patient, Son, Other Date of Service: Oct 05, 2024 Billing Provider: MARY LOU SUTTON Cardiology Common Codes: [id number] HOSP CARE([facility] MARY LOU SUTTON Oct 05, 2024 15:32
[2024-10-05] MEDS: FUROSEMIDE 40 MG/4 ML VIAL IV SCH (18:00)
[2024-10-05] MEDS: AMIODARONE BOLUS KIT 100 ML IV ONE (18:50)
--- NOTE | 2024-10-05 21:31 | DVHPN2 ---
Consult Progress Note Date Seen: Oct 05, 2024 Subjective Other Systems: Patient was seen and evaluated in follow up. Notified of a-fib with RVR events while ambulating to the bathroom. Patient reports fatigue with activity. I do not advise for in-patient invasive cardiac work-up. The patient can benefit from an outpatient coronary angiogram with cardiac catheterization given [place] CHF. In the meantime maximize medical therapy and initiate LifeVest x 3 months. Telemetry reviewed. Objective vital signs Vital Sign Date Time Temp Pulse Resp B/P (MAP) Pulse Ox O2 Delivery O2 Flow Rate FiO2 10/05/24 18:00 97/63 10/05/24 17:30 97.6 79 18 94 97.6 10/05/24 10:00 Room Air 2.0 10/05/24 10:00 21 Total Intake and Output 10/04/24 10/04/24 10/05/24 15:00 23:00 07:00 Intake Total 50 ml 800 ml 850 ml Output Total 1250 ml Balance 50 ml 800 ml -400 ml medications Current Medications Medications Dose Ordered Sig/Gideon Route Start Time Stop Time Status Last Admin Dose Admin Ipratropium [place] 0.5 mg Q8HPRN PRN NEB 10/02/24 23:15 Albuterol 2.5 mg Q8HPRN PRN NEB 10/02/24 23:15 Docusate Sodium 100 mg BID PO 10/03/24 10:00 10/05/24 09:15 100 MG Polyethylene Glycol 17 gm DAILYPRN PRN PO 10/03/24 00:45 Ceftriaxone Sodium 50 ml @ 100 mls/hr DAILY@09 IV 10/03/24 07:00 10/05/24 09:14 100 MLS/HR Doxycycline Hyclate 100 ml @ 50 mls/hr Q12HR IV 10/03/24 10:00 10/05/24 11:07 50 MLS/HR Empaglifozin 10 mg DAILY PO 10/04/24 10:00 10/05/24 09:15 10 MG Sacubitril/ Valsartan 1 tab BID PO 10/03/24 22:00 10/05/24 09:15 1 TAB Acetaminophen 650 mg Q6HP PRN PO 10/04/24 16:00 10/04/24 21:21 650 MG Amiodarone HCl 200 mg Q12HR PO 10/05/24 22:00 Metoprolol Tartrate 12.5 mg BID PO 10/05/24 22:00 Furosemide 40 mg BIDD IV 10/05/24 18:00 Enoxaparin Sodium 30 mg DAILY SC 10/06/24 10:00 Examination: GENERAL:Normal, HEENT:Normal, NECK:Normal, LUNGS:Normal, CVS:Normal, ABDOMEN:Normal, MSK:Normal, SKIN:Normal, NEURO:Normal laboratory and microbiology Laboratory Tests 10/05/24 05:30 Test 10/05/24 05:30 Range/Units Serum Glucose 82 74-106 mg/dL Problem List/Assessment/Plan Problem List/Assessment/Plan Problem List [place] decompensated HFrEF (EF 10%). Dilated cardiomyopathy, ?ischemic. Paroxysmal atrial fibrillation with RVR, now NSR. Elevated liver enzyme. Hypertension. Dyslipidemia. Obesity. Plan/Recommendation Continued all current supportive medical care. Patient has been seen by Eileen Vu NP on my behalf. We have discussed the plan with the patient. Echocardiogram confirmed EF 10%. GDMT for HF ( Entresto, jardiance, and beta lex with parameters for HR >60 bpm) up titrate as tolerated. Mineralocorticoid held secondary to hyperkalemia. Initiate LifeVest x 3 months. Preload and afterload reduction as tolerated. Strict intake and output, daily weights, low-sodium diet. Initiate antiarrhythmic therapy with amiodarone BID including bolus IV. Replete electrolytes as necessary, K>4 and Mg>2. Monitor ECG changes closely and notify. Initiate DVT/VTE prophylaxis. The patient can benefit from an outpatient coronary angiogram with cardiac catheterization given [place] CHF. In the meantime maximize medical therapy and initiate LifeVest x 3 months. If no improvement of LVEF within three months of GDMT for CHF, the patient may be a candidate for an ICD device. Follow-up with a primary funeral director/embalmer within 1-2 weeks post-discharge. Additional plan as per the hospital course. Plan discussed with: Patient, Other Date of Service: Oct 05, 2024 Billing Provider: ADRIÁN OGDEN MD Cardiology Common Codes: [id number] [facility] ADRIÁN OGDEN MD Oct 05, 2024 21:31
[2024-10-05] MEDS: AMIODARONE HCL 200 MG TAB PO SCH (22:10)
[2024-10-05] MEDS: METOPROLOL TARTRATE 25 MG TAB PO SCH (22:19)
[2024-10-06] VITALS (12 sets, daily range): BP systolic 88–111; BP diastolic 64–80; PULSE 20–85; RESP 17–19; TEMP 97.2–98.7; O2SAT 95–100
[2024-10-06 08:04] LABS: Hematocrit 44.1 % (41.0-53.0); Hemoglobin 14.8 g/dL (13.5-17.5); Mean Corpuscular Hemoglobin 33.1 pg (28.0-32.0); Mean Corpuscular Volume 98.7 fL (80.0-100.0); Nucleated Red Blood Cells % 0.0 %
[2024-10-06 08:15] LABS: Anion Gap 8 (5-15); Chloride 98 mmol/L (98-107); Potassium 4.1 mmol/L (3.5-5.1); Sodium 138 mmol/L (136-145)
[2024-10-06 08:21] LABS: Glucose 87 mg/dL (74-106)
[2024-10-06 08:22] LABS: BUN/Creatinine Ratio 16.9 (10.0-20.0); Blood Urea Nitrogen 15 mg/dL (9-23)
[2024-10-06 08:27] LABS: Calcium 8.6 mg/dL (8.7-10.4); Carbon Dioxide 32 mmol/L (20-31)
[2024-10-06] MEDS: DEXTROSE (50%) 50ML SYRG IV ONE (09:30)
--- NOTE | 2024-10-06 10:13 | DVHPN2 ---
Consult Progress Note Date Seen: Oct 06, 2024 Subjective Review of Systems: CVS:Normal, RESPIRATORY:Normal, NEURO:Normal Objective vital signs Vital Sign Date Time Temp Pulse Resp B/P (MAP) Pulse Ox O2 Delivery O2 Flow Rate FiO2 10/06/24 09:30 97.2 69 18 111/80 (90) 95 97.2 10/06/24 06:29 Room Air* 0 21 Total Intake and Output 10/05/24 10/05/24 10/06/24 15:00 23:00 07:00 Intake Total 150 ml 1700 ml 800 ml Balance 150 ml 1700 ml 800 ml medications Current Medications Medications Dose Ordered Sig/Gideon Route Start Time Stop Time Status Last Admin Dose Admin Ipratropium [place] 0.5 mg Q8HPRN PRN NEB 10/02/24 23:15 Albuterol 2.5 mg Q8HPRN PRN NEB 10/02/24 23:15 Docusate Sodium 100 mg BID PO 10/03/24 10:00 10/05/24 22:10 100 MG Polyethylene Glycol 17 gm DAILYPRN PRN PO 10/03/24 00:45 Ceftriaxone Sodium 50 ml @ 100 mls/hr DAILY@09 IV 10/03/24 07:00 10/06/24 09:29 100 MLS/HR Doxycycline Hyclate 100 ml @ 50 mls/hr Q12HR IV 10/03/24 10:00 10/05/24 22:10 50 MLS/HR Empaglifozin 10 mg DAILY PO 10/04/24 10:00 10/05/24 09:15 10 MG Sacubitril/ Valsartan 1 tab BID PO 10/03/24 22:00 10/05/24 22:10 1 TAB Acetaminophen 650 mg Q6HP PRN PO 10/04/24 16:00 10/06/24 06:13 650 MG Amiodarone HCl 200 mg Q12HR PO 10/05/24 22:00 10/05/24 22:10 200 MG Metoprolol Tartrate 12.5 mg BID PO 10/05/24 22:00 10/05/24 22:19 12.5 MG Furosemide 40 mg BIDD IV 10/05/24 18:00 Enoxaparin Sodium 30 mg DAILY SC 10/06/24 10:00 Examination: LUNGS:Normal, CVS:Normal, NEURO:Normal laboratory and microbiology Laboratory Tests 10/06/24 06:26 Test 10/06/24 06:26 Range/Units Serum Glucose 87 74-106 mg/dL Problem List/Assessment/Plan Problem List/Assessment/Plan [place] decompensated HFrEF (EF 10%) Dilated cardiomyopathy, ?ischemic Paroxysmal atrial fibrillation with RVR, now NSR Elevated liver enzyme Hypertension Dyslipidemia Obesity Plan/Recommendation (Dr. Ge ) * Echocardiogram reviewed by Dr. Mehul Ge confirmed EF 10% * GDMT for HF ( Entresto, jardiance, and beta lex with parameters for HR >60 bpm) up titrate as tolerated * Mineralocorticoid held secondary to hyperkalemia * Initiate LifeVest x 3 months * Preload and afterload reduction as tolerated * Strict intake and output, daily weights, low-sodium diet, * Continue antiarrhythmic therapy with amiodarone BID * Replete electrolytes as necessary, K>4 and Mg>2 * Monitor ECG changes closely and notify * DVT/VTE prophylaxis Conversation and discussion of case held with Dr. Ge who does not advise for in-patient invasive cardiac work-up. The patient can benefit from an outpatient coronary angiogram with cardiac catheterization given [place] CHF. In the meantime maximize medical therapy and initiate LifeVest x 3 months. If no improvement of LVEF within three months of GDMT for CHF, the patient may be a candidate for an ICD device. Follow-up with a primary photography sales associate within 1-2 weeks post-discharge. Signing off at this time, kindly call with any questions or concerns. Thank you for allowing us to care for this patient. This medical document was created using an electronic medical record system with voice recognition software and computerized dictation system. Although this document has been carefully reviewed, there might still be some phonetic and typographical errors. Occasional wrong-word or ``sound-alike substitutions may have occurred due to the inherent limitations of voice recognition software. These areas are purely typographical due to imperfections of the software programs and do not reflect any compromise in the patient's medical care. Please read the chart carefully and recognize, using context, where these substitutions have occurred. Plan discussed with: Patient, Other Date of Service: Oct 06, 2024 Billing Provider: MARY LOU SUTTON Cardiology Common Codes: [id number] INP/OBS CARE(Mod) MARY LOU SUTTON Oct 06, 2024 10:13
[2024-10-06] MEDS: ENOXAPARIN SOD 30 MG/0.3 ML SYRINGE SC SCH (10:23)
[2024-10-06] MEDS: MILK OF MAGNESIA 30ML SUSP PO ONE (12:00)
--- NOTE | 2024-10-06 14:53 | DVHPNRES ---
Progress Note Date Seen: Oct 06, 2024 Resident Creating Document: ENMA VANEGAS RESIDENT Medical Necessity Reason Pt with a Central, PICC or Fol: No Subjective Review of Systems Patient is a 79-year-old male with past medical history of hypertension, dyslipidemia, asthma, depression, gout who came in due to generalized abdominal pain. According to the patient, pain has been ongoing for the last 4-5 days and is associated with intermittent nausea and vomiting, he describes the abdominal pain is cramping and located in the epigastric region with radiation to the midsternal chest area. Patient was evaluated in the ED yesterday for similar symptoms and discharged with Bentyl but symptoms continued to worsen which prompted this visit to the hospital. Patient also notes having nausea and chills along with 5 episodes of vomiting, he notes abdominal pain worsens with vomiting. The patient also had dizziness during this time. Of note, patient also takes ibuprofen once daily for the past 5-6 years. Patient notes 1 week ago he drank 1 bottle of Tequila, however, notes usually he will only drink alcohol occasionally. On review of systems patient is complaining of fatigue, chills, productive cough, shortness of breath, nausea, vomiting and constipation. 10/03-The patient still has shortness of breath but the abdominal pain has reduced. The patient mentions having trouble falling asleep since the last one month. BNP was 1640 and EKG showed sinus rhythm with RBBB, LPFB and prolonged QTc. Chest xray showed cardiomegaly with small right pleural effusion and bibasilar atelectasis in the lungs. CT showed CHF/volume overload with mild cardiomegaly and mild to moderate 3 vessel calcified CAD. Hence an Echo was ordered for the patient for further evaluation and workup which showed EF of 10% on preliminary evaluation. He was started on 2l oxygen. 10/04-Patient uses CPAP at home while sleeping at night. Echo showed dilated chambers of the heart with left ventricular ejection fraction of 10% and Cardiology asked him to follow up outpatient for possible placement of biventricular ICD. He is on 4 L oxygen by nasal cannula he is tolerating it well. 10/05-Patient has mild fatigue and is tolerating the 4 l oxygen well. The nurse mentioned patient has Afib with RVR when he stands up and walks a little. Cardiology and social science teacher were consulted regarding providing patient with a Life Vest till the placement of a biventricular ICD as recommended by cardiology. No adverse vents overnight. 10/06- The patient complains of dizziness on standing up and walking. The patient also has shortness of breath. Patient will be managed by cardiology outpatient and is waiting for clearance for Life Vest by his insurance. No adverse events in the last 24 hours. Past Medical History Hypertension, dyslipidemia, asthma, depression, gout Past Social History Smoking: Denies Alcohol: Occasionally, wine and Tequila Drugs: Denies Constitutional: malaise, No: Fever, Sweats, Weakness, Eyes: No: Pain, Vision change, Conjunctivae inflammation, Eyelid inflammation, Redness ENT: No: Ear pain, Ear discharge, Nose pain, Nose discharge, Nose congestion, Mouth pain, Mouth swelling, Throat pain, Throat swelling Respiratory: Cough, Shortness of breath; No: SOB with excertion, Wheezing, Hemoptysis, Pleuritic Pain, Sputum, Wheezing Cardiovascular: No: Chest Pain, Palpitations, Orthopnea, Paroxysmal Noc. Dyspnea, Edema, Lt Headednes Gastrointestinal: no Nausea, Vomiting, Abdominal Pain, Constipation; No: Diarrhea, Melena, Hematochezia Genitourinary: No Dysuria, No Frequency, No Incontinence, No Hematuria, No Retention Musculoskeletal: No: neck pain, shoulder pain, arm pain, back pain, hand pain, leg pain, foot pain Skin: No: Rash, Lesions, Jaundice, Bruising Neurological: No: Weakness, Numbness, Incoordination, Change in speech, Confusion, Seizures Allergies: no known allergies Objective vital signs Vital Sign Date Time Temp Pulse Resp B/P (MAP) Pulse Ox O2 Delivery O2 Flow Rate FiO2 10/06/24 13:27 97.5 69 18 91/64 (73) 95 97.5 10/06/24 06:29 Room Air* 0 21 Total Intake and Output 10/05/24 10/05/24 10/06/24 15:00 23:00 07:00 Intake Total 150 ml 1700 ml 800 ml Balance 150 ml 1700 ml 800 ml medications Current Medications Medications Dose Ordered Sig/Gideon Route Start Time Stop Time Status Last Admin Dose Admin Ipratropium [place] 0.5 mg Q8HPRN PRN NEB 10/02/24 23:15 Albuterol 2.5 mg Q8HPRN PRN NEB 10/02/24 23:15 Docusate Sodium 100 mg BID PO 10/03/24 10:00 10/06/24 10:23 100 MG Polyethylene Glycol 17 gm DAILYPRN PRN PO 10/03/24 00:45 Ceftriaxone Sodium 50 ml @ 100 mls/hr DAILY@09 IV 10/03/24 07:00 10/06/24 09:29 100 MLS/HR Doxycycline Hyclate 100 ml @ 50 mls/hr Q12HR IV 10/03/24 10:00 10/06/24 10:23 50 MLS/HR Empaglifozin 10 mg DAILY PO 10/04/24 10:00 10/06/24 10:22 10 MG Sacubitril/ Valsartan 1 tab BID PO 10/03/24 22:00 10/06/24 10:22 1 TAB Acetaminophen 650 mg Q6HP PRN PO 10/04/24 16:00 10/06/24 06:13 650 MG Amiodarone HCl 200 mg Q12HR PO 10/05/24 22:00 10/06/24 10:22 200 MG Metoprolol Tartrate 12.5 mg BID PO 10/05/24 22:00 10/06/24 10:22 12.5 MG Furosemide 40 mg BIDD IV 10/05/24 18:00 Enoxaparin Sodium 30 mg DAILY SC 10/06/24 10:00 10/06/24 10:23 30 MG Magnesium Hydroxide 30 ml DAILY PO 10/07/24 10:00 Examination General Appearance: Alert, Oriented X3, Cooperative, No acute distress HEENT: Atraumatic, PERRLA, EOMI, Other (Dry mucous membranes) Respiratory: Normal air movement, Other (Coarse bilateral breath sounds) Cardiovascular: Regular rate, Normal S1, Normal S2 Abdominal: Normal bowel sounds, Soft, obese abdomen,no tenderness Extremities: Other (1+ lower extremity pitting edema) Skin: No rashes Neuro: Normal speech Psych/Mental Status: Mental status NL, Mood NL laboratory and microbiology Laboratory Tests 10/06/24 06:26 Test 10/06/24 06:26 Range/Units Serum Glucose 87 74-106 mg/dL Microbiology Date/Time Source Procedure Growth Status 10/03/24 10:32 Nose MRSA Screen - Final Complete 10/02/24 23:22 Blood Blood Culture - Preliminary NO GROWTH AFTER 72 HOURS OF INCUBATION. Resulted Labs and/or images reviewed: Labs reviewed by me, Image(s) reviewed by me Problem List/Assessment/Plan Problem List/Assessment/Plan Lactic acidosis Ruled out ACS ? Gastritis versus peptic ulcer disease Prolonged QTC Mild ascites - CT abdomen pelvis: CHF/volume overload, with mild cardiomegaly, mild interstitial pulmonary edema, small right pleural effusion, mesenteric venous congestion and mild ascites, mild body wall edema. Very mild nodular contour of the liver which could be fibrosis or less likely cirrhosis. Mild bladder wall thickening which could be related to chronic bladder outlet obstruction. Mild distal colonic diverticulosis. [id number] three-vessel calcified coronary artery disease. Mild aortic valve calcifications. - serial troponins 39, 39 - aspirin 162 mg once - IV NS 1 L once Hyperkalemia Chronic asymptomatic hyponatremia - hyperkalemia protocol - ordered serum osmolality, urine osmolality, urine sodium - monitor Thrombocytopenia, mild - monitor Hyperbilirubinemia Transaminitis - CT abdomen pelvis: Mesenteric venous congestion and mild ascites. Very mild nodular contour of the liver which could be fibrosis or less likely cirrhosis - monitor De roxy Acute on chronic CHF with reduced ejection fraction Right-sided pleural effusion Questionable community-acquired pneumonia, Gram-positive versus Gram-negative? pulmonary edema likely due to above Dilated cardiomyopathy, ?ischemic Paroxysmal atrial fibrillation with RVR, now NSR - CXR: Borderline cardiomegaly. Small right pleural effusion. Mild pulmonary edema. Bibasilar airspace disease may represent atelectasis although pneumonia is not ruled out. - serum BNP 1680.72 - IV Lasix 40 mg once - ordered echocardiogram - ordered respiratory cultures, COVID, influenza testing - IV ceftriaxone, IV doxycycline Colonic diverticulosis without diverticulitis Constipation, likely slow transit - Colace 100 mg b.i.d., MiraLax 17 g as needed - monitor Grade 2 obesity - counselled extensively on lifestyle modification including healthy diet and activity History of depression - resumed home medication trazodone 50 mg q.p.m., discontinued by cardiology for adverse effect of QT prolongation - monitor History of asthma - ipratropium and albuterol med nebs Q 8 hours as needed PUD prophylaxis: protonix 40mg DVT prophylaxis: SCDs Goals of care: Full code, discussed for >20 minutes on 10/06/2024 Plan discussed with patient Plan discussed with Dr. Kam Plan discussed with: Patient Plan discussed with: Patient Date of Service: Oct 06, 2024 Billing Provider: CORRIE KAM MD Common Visit Codes: [id number] INP/OBS CARE(HIGH) ENMA VANEGAS RESIDENT Oct 06, 2024 14:53 CORRIE KAM MD Oct 10, 2024 19:27
--- NOTE | 2024-10-06 22:57 | DVHPN2 ---
Consult Progress Note Date Seen: Oct 06, 2024 Subjective Review of Systems: NEURO:Normal Other Systems: Patient was seen and evaluated in follow up. Patient id complaining of generalized pain. CO2 32, CA 8.6. Telemetry reviewed. Objective vital signs Vital Sign Date Time Temp Pulse Resp B/P (MAP) Pulse Ox O2 Delivery O2 Flow Rate FiO2 10/06/24 13:27 97.5 69 18 91/64 (73) 95 97.5 10/06/24 06:29 Room Air* 0 21 Total Intake and Output 10/05/24 10/05/24 10/06/24 15:00 23:00 07:00 Intake Total 150 ml 1700 ml 800 ml Balance 150 ml 1700 ml 800 ml medications Current Medications Medications Dose Ordered Sig/Gideon Route Start Time Stop Time Status Last Admin Dose Admin Ipratropium [place] 0.5 mg Q8HPRN PRN NEB 10/02/24 23:15 Albuterol 2.5 mg Q8HPRN PRN NEB 10/02/24 23:15 Docusate Sodium 100 mg BID PO 10/03/24 10:00 10/06/24 10:23 100 MG Polyethylene Glycol 17 gm DAILYPRN PRN PO 10/03/24 00:45 Ceftriaxone Sodium 50 ml @ 100 mls/hr DAILY@09 IV 10/03/24 07:00 10/06/24 09:29 100 MLS/HR Doxycycline Hyclate 100 ml @ 50 mls/hr Q12HR IV 10/03/24 10:00 10/06/24 10:23 50 MLS/HR Empaglifozin 10 mg DAILY PO 10/04/24 10:00 10/06/24 10:22 10 MG Sacubitril/ Valsartan 1 tab BID PO 10/03/24 22:00 10/06/24 10:22 1 TAB Acetaminophen 650 mg Q6HP PRN PO 10/04/24 16:00 10/06/24 06:13 650 MG Amiodarone HCl 200 mg Q12HR PO 10/05/24 22:00 10/06/24 10:22 200 MG Metoprolol Tartrate 12.5 mg BID PO 10/05/24 22:00 10/06/24 10:22 12.5 MG Furosemide 40 mg BIDD IV 10/05/24 18:00 Enoxaparin Sodium 30 mg DAILY SC 10/06/24 10:00 10/06/24 10:23 30 MG Magnesium Hydroxide 30 ml DAILY PO 10/07/24 10:00 Examination: GENERAL:Normal, HEENT:Normal, NECK:Normal, LUNGS:Normal, CVS:Normal, ABDOMEN:Normal, MSK:Normal, NEURO:Normal laboratory and microbiology Laboratory Tests 10/06/24 06:26 Test 10/06/24 06:26 Range/Units Serum Glucose 87 74-106 mg/dL Problem List/Assessment/Plan Problem List/Assessment/Plan Problem List [place] decompensated HFrEF (EF 10%). Dilated cardiomyopathy, ?ischemic. Paroxysmal atrial fibrillation with RVR, now NSR. Elevated liver enzyme. Hypertension. Dyslipidemia. Obesity. Plan/Recommendation Continued all current supportive medical care. Patient has been seen by Eileen Vu NP on my behalf. We have discussed the plan with the patient. Echocardiogram reviewed by me which confirmed an EF of 10%. GDMT for HF ( Entresto, jardiance, and beta lex with parameters for HR >60 bpm) up titrate as tolerated. Mineralocorticoid held secondary to hyperkalemia. Initiate LifeVest x 3 months. Preload and afterload reduction as tolerated. Strict intake and output, daily weights, low-sodium diet. Continue antiarrhythmic therapy with amiodarone BID . Replete electrolytes as necessary, K>4 and Mg>2. Monitor ECG changes closely and notify. DVT/VTE prophylaxis. Conversation and discussion of case was held with me and I do not advise the patient for in-patient invasive cardiac work-up. The patient can benefit from an outpatient coronary angiogram with cardiac catheterization given [place] CHF. In the meantime maximize medical therapy and initiate LifeVest x 3 months. If no improvement of LVEF within three months of GDMT for CHF, the patient may be a candidate for an ICD device. Follow-up with a primary machine cleaner within 1-2 weeks post-discharge. Additional plan as per the hospital course. Plan discussed with: Patient Date of Service: Oct 06, 2024 Billing Provider: ADRIÁN OGDEN MD Cardiology Common Codes: [id number] INP/OBS CARE(Mod) ADRIÁN OGDEN MD Oct 06, 2024 14:14
[2024-10-07] VITALS (11 sets, daily range): BP systolic 90–114; BP diastolic 62–77; PULSE 56–91; RESP 16–19; TEMP 97.7–98.2; O2SAT 93–100
[2024-10-07 07:24] LABS: Potassium 4.1 mmol/L (3.5-5.1); Sodium 138 mmol/L (136-145)
[2024-10-07 07:25] LABS: Anion Gap 5 (5-15); Calcium 8.7 mg/dL (8.7-10.4)
[2024-10-07 07:30] LABS: BUN/Creatinine Ratio 12.6 (10.0-20.0); Blood Urea Nitrogen 11 mg/dL (9-23); Glucose 86 mg/dL (74-106)
[2024-10-07 07:31] LABS: Carbon Dioxide 35 mmol/L (20-31); Chloride 98 mmol/L (98-107)
[2024-10-07 07:34] LABS: Hematocrit 46.2 % (41.0-53.0); Hemoglobin 15.3 g/dL (13.5-17.5); Mean Corpuscular Hemoglobin 33.0 pg (28.0-32.0); Mean Corpuscular Volume 99.8 fL (80.0-100.0); Nucleated Red Blood Cells % 0.2 %
[2024-10-07] MEDS: MILK OF MAGNESIA 30ML SUSP PO SCH (10:00)
--- NOTE | 2024-10-07 14:02 | ECG ---
[facility] Test Date: 2024-10-01 Test Time: 17:09:13 Pat Name: JEANETH LOPEZ Department: Room: 0240T Gender: M Nurses Superintendent: DR WHYTE: 1945 Requested By: ALISHA ESPINOZA Order Number: [id number] Reading MD: Adonis Mcmillan Measurements Intervals [place] Rate: 86 P: 69 CO: 196 QRS: 132 QRSD: 187 T: -4 QT: 439 QTc: 525 Interpretive Statements Sinus rhythm Multiform ventricular premature complexes Nonspecific intraventricular conduction delay Minimal ST depression Electronically Signed On 10-12-2024 13:26:59 PDT by Adonis Mcmillan Please click the below link to view image of tracing.
--- NOTE | 2024-10-07 17:07 | DVHPNRES ---
Progress Note Date Seen: Oct 07, 2024 Resident Creating Document: ENMA VANEGAS RESIDENT Medical Necessity Reason Pt with a Central, PICC or Fol: No Subjective Review of Systems Patient is a 79-year-old male with past medical history of hypertension, dyslipidemia, asthma, depression, gout who came in due to generalized abdominal pain. According to the patient, pain has been ongoing for the last 4-5 days and is associated with intermittent nausea and vomiting, he describes the abdominal pain is cramping and located in the epigastric region with radiation to the midsternal chest area. Patient was evaluated in the ED yesterday for similar symptoms and discharged with Bentyl but symptoms continued to worsen which prompted this visit to the hospital. Patient also notes having nausea and chills along with 5 episodes of vomiting, he notes abdominal pain worsens with vomiting. The patient also had dizziness during this time. Of note, patient also takes ibuprofen once daily for the past 5-6 years. Patient notes 1 week ago he drank 1 bottle of Tequila, however, notes usually he will only drink alcohol occasionally. On review of systems patient is complaining of fatigue, chills, productive cough, shortness of breath, nausea, vomiting and constipation. 10/03-The patient still has shortness of breath but the abdominal pain has reduced. The patient mentions having trouble falling asleep since the last one month. BNP was 1640 and EKG showed sinus rhythm with RBBB, LPFB and prolonged QTc. Chest xray showed cardiomegaly with small right pleural effusion and bibasilar atelectasis in the lungs. CT showed CHF/volume overload with mild cardiomegaly and mild to moderate 3 vessel calcified CAD. Hence an Echo was ordered for the patient for further evaluation and workup which showed EF of 10% on preliminary evaluation. He was started on 2l oxygen. 10/04-Patient uses CPAP at home while sleeping at night. Echo showed dilated chambers of the heart with left ventricular ejection fraction of 10% and Cardiology asked him to follow up outpatient for possible placement of biventricular ICD. He is on 4 L oxygen by nasal cannula he is tolerating it well. 10/05-Patient has mild fatigue and is tolerating the 4 l oxygen well. The nurse mentioned patient has Afib with RVR when he stands up and walks a little. Cardiology and social media manager were consulted regarding providing patient with a Life Vest till the placement of a biventricular ICD as recommended by cardiology. No adverse vents overnight. 10/06- The patient complains of dizziness on standing up and walking. The patient also has shortness of breath. Patient will be managed by cardiology outpatient and is waiting for clearance for Life Vest by his insurance. No adverse events in the last 24 hours. 10/07- The patient has some dizziness and is on 3L of oxygen by nasal canula. His insurance has approved of his LIfe Vest and has been delivered to the patient. Patient is asked to wear it and is being observed today before he gets discharged tomorrow. Past Medical History Hypertension, dyslipidemia, asthma, depression, gout Past Social History Smoking: Denies Alcohol: Occasionally, wine and Tequila Drugs: Denies Constitutional: malaise, No: Fever, Sweats, Weakness, Eyes: No: Pain, Vision change, Conjunctivae inflammation, Eyelid inflammation, Redness ENT: No: Ear pain, Ear discharge, Nose pain, Nose discharge, Nose congestion, Mouth pain, Mouth swelling, Throat pain, Throat swelling Respiratory: Cough, Shortness of breath; No: SOB with excertion, Wheezing, Hemoptysis, Pleuritic Pain, Sputum, Wheezing Cardiovascular: No: Chest Pain, Palpitations, Orthopnea, Paroxysmal Noc. Dyspnea, Edema, Lt Headednes Gastrointestinal: no Nausea, Vomiting, Abdominal Pain, Constipation; No: Diarrhea, Melena, Hematochezia Genitourinary: No Dysuria, No Frequency, No Incontinence, No Hematuria, No Retention Musculoskeletal: No: neck pain, shoulder pain, arm pain, back pain, hand pain, leg pain, foot pain Skin: No: Rash, Lesions, Jaundice, Bruising Neurological: No: Weakness, Numbness, Incoordination, Change in speech, Confusion, Seizures Allergies: no known allergies Objective vital signs Vital Sign Date Time Temp Pulse Resp B/P (MAP) Pulse Ox O2 Delivery O2 Flow Rate FiO2 10/07/24 15:36 100 Nasal Cannula 3.0 10/07/24 15:36 32 10/07/24 13:00 98.2 72 19 104/62 (76) 98.2 Total Intake and Output 10/06/24 10/06/24 10/07/24 15:00 23:00 07:00 Intake Total 150 ml 900 ml 450 ml Output Total 500 ml Balance 150 ml 900 ml -50 ml medications Current Medications Medications Dose Ordered Sig/Gideon Route Start Time Stop Time Status Last Admin Dose Admin Ipratropium [place] 0.5 mg Q8HPRN PRN NEB 10/02/24 23:15 Albuterol 2.5 mg Q8HPRN PRN NEB 10/02/24 23:15 Docusate Sodium 100 mg BID PO 10/03/24 10:00 10/07/24 10:00 100 MG Polyethylene Glycol 17 gm DAILYPRN PRN PO 10/03/24 00:45 Ceftriaxone Sodium 50 ml @ 100 mls/hr DAILY@09 IV 10/03/24 07:00 10/07/24 09:00 100 MLS/HR Doxycycline Hyclate 100 ml @ 50 mls/hr Q12HR IV 10/03/24 10:00 10/07/24 10:00 50 MLS/HR Empaglifozin 10 mg DAILY PO 10/04/24 10:00 10/07/24 10:00 10 MG Sacubitril/ Valsartan 1 tab BID PO 10/03/24 22:00 10/07/24 10:00 1 TAB Acetaminophen 650 mg Q6HP PRN PO 10/04/24 16:00 10/06/24 23:43 650 MG Amiodarone HCl 200 mg Q12HR PO 10/05/24 22:00 10/07/24 10:00 200 MG Metoprolol Tartrate 12.5 mg BID PO 10/05/24 22:00 10/07/24 10:00 12.5 MG Furosemide 40 mg BIDD IV 10/05/24 18:00 Enoxaparin Sodium 30 mg DAILY SC 10/06/24 10:00 10/07/24 10:00 30 MG Magnesium Hydroxide 30 ml DAILY PO 10/07/24 10:00 10/07/24 10:00 30 ML Examination General Appearance: Alert, Oriented X3, Cooperative, No acute distress HEENT: Atraumatic, PERRLA, EOMI, Other (Dry mucous membranes) Respiratory: Normal air movement, normal breath sounds Cardiovascular: Regular rate, Normal S1, Normal S2 Abdominal: Normal bowel sounds, Soft, obese abdomen,no tenderness Extremities: Other (1+ lower extremity pitting edema) Skin: No rashes Neuro: Normal speech Psych/Mental Status: Mental status NL, Mood NL laboratory and microbiology Laboratory Tests 10/07/24 06:12 Test 10/07/24 06:12 Range/Units Serum Glucose 86 74-106 mg/dL Microbiology Date/Time Source Procedure Growth Status 10/03/24 10:32 Nose MRSA Screen - Final Complete 10/02/24 23:22 Blood Blood Culture - Preliminary NO GROWTH AFTER 72 HOURS OF INCUBATION. Resulted Labs and/or images reviewed: Labs reviewed by me, Image(s) reviewed by me Problem List/Assessment/Plan Problem List/Assessment/Plan Lactic acidosis Ruled out ACS ? Gastritis versus peptic ulcer disease Prolonged QTC Mild ascites - CT abdomen pelvis: CHF/volume overload, with mild cardiomegaly, mild interstitial pulmonary edema, small right pleural effusion, mesenteric venous congestion and mild ascites, mild body wall edema. Very mild nodular contour of the liver which could be fibrosis or less likely cirrhosis. Mild bladder wall thickening which could be related to chronic bladder outlet obstruction. Mild distal colonic diverticulosis. [id number] three-vessel calcified coronary artery disease. Mild aortic valve calcifications. - serial troponins 39, 39 - aspirin 162 mg once - IV NS 1 L once Hyperkalemia Chronic asymptomatic hyponatremia - hyperkalemia protocol - ordered serum osmolality, urine osmolality, urine sodium - monitor Thrombocytopenia, mild - monitor Hyperbilirubinemia Transaminitis - CT abdomen pelvis: Mesenteric venous congestion and mild ascites. Very mild nodular contour of the liver which could be fibrosis or less likely cirrhosis - monitor De roxy Acute on chronic CHF with reduced ejection fraction Right-sided pleural effusion Questionable community-acquired pneumonia, Gram-positive versus Gram-negative? pulmonary edema likely due to above Dilated cardiomyopathy, ?ischemic Paroxysmal atrial fibrillation with RVR, now NSR - CXR: Borderline cardiomegaly. Small right pleural effusion. Mild pulmonary edema. Bibasilar airspace disease may represent atelectasis although pneumonia is not ruled out. - serum BNP 1680.72 - IV Lasix 40 mg once - ordered echocardiogram - ordered respiratory cultures, COVID, influenza testing - IV ceftriaxone, IV doxycycline Colonic diverticulosis without diverticulitis Constipation, likely slow transit - Colace 100 mg b.i.d., MiraLax 17 g as needed - monitor Grade 2 obesity - counselled extensively on lifestyle modification including healthy diet and activity History of depression - resumed home medication trazodone 50 mg q.p.m., discontinued by cardiology for adverse effect of QT prolongation - monitor History of asthma - ipratropium and albuterol med nebs Q 8 hours as needed -on 3L oxygen by nasal canula PUD prophylaxis: protonix 40mg DVT prophylaxis: SCDs Goals of care: Full code, discussed for >20 minutes on 10/07/2024 Plan discussed with patient Plan discussed with Dr. Kam Plan discussed with: Patient Plan discussed with: Patient Dietary Evaluation Review Comments: cardiac diet wt mgt Expected Outcomes/Goals: wt loss Date of Service: Oct 07, 2024 Billing Provider: CORRIE KAM MD Common Visit Codes: [id number] INP/OBS CARE(HIGH) ENMA VANEGAS RESIDENT Oct 07, 2024 17:07 CORRIE KAM MD Oct 10, 2024 19:28
[2024-10-07] MEDS: InsuLIN REG 1unit/0.01ml Soln (100units/ml) IV ONE (18:06)
--- NOTE | 2024-10-07 23:51 | DVHPN2 ---
Progress Note - Dictate Date Seen: Oct 07, 2024 Medical Necessity Reason Pt with a Central, PICC or Fol: No Subjective Patient was seen and evaluated in follow up. No overnight events. Patient is pending Zoll life vest. CO2 35. Telemetry reviewed. vital signs Vital Sign Date Time Temp Pulse Resp B/P (MAP) Pulse Ox O2 Delivery O2 Flow Rate FiO2 10/07/24 09:00 97.7 87 16 113/77 (89) 99 97.7 10/06/24 23:30 Room Air* 0 21 Total Intake and Output 10/06/24 10/06/24 10/07/24 15:00 23:00 07:00 Intake Total 150 ml 900 ml 450 ml Output Total 500 ml Balance 150 ml 900 ml -50 ml medications Current Medications Medications Dose Ordered Sig/Gideon Route Start Time Stop Time Status Last Admin Dose Admin Ipratropium [place] 0.5 mg Q8HPRN PRN NEB 10/02/24 23:15 Albuterol 2.5 mg Q8HPRN PRN NEB 10/02/24 23:15 Docusate Sodium 100 mg BID PO 10/03/24 10:00 10/06/24 21:08 100 MG Polyethylene Glycol 17 gm DAILYPRN PRN PO 10/03/24 00:45 Ceftriaxone Sodium 50 ml @ 100 mls/hr DAILY@09 IV 10/03/24 07:00 10/06/24 09:29 100 MLS/HR Doxycycline Hyclate 100 ml @ 50 mls/hr Q12HR IV 10/03/24 10:00 10/06/24 20:57 50 MLS/HR Empaglifozin 10 mg DAILY PO 10/04/24 10:00 10/06/24 10:22 10 MG Sacubitril/ Valsartan 1 tab BID PO 10/03/24 22:00 10/06/24 23:39 1 TAB Acetaminophen 650 mg Q6HP PRN PO 10/04/24 16:00 10/06/24 23:43 650 MG Amiodarone HCl 200 mg Q12HR PO 10/05/24 22:00 10/06/24 21:01 200 MG Metoprolol Tartrate 12.5 mg BID PO 10/05/24 22:00 10/06/24 22:53 12.5 MG Furosemide 40 mg BIDD IV 10/05/24 18:00 Enoxaparin Sodium 30 mg DAILY SC 10/06/24 10:00 10/06/24 10:23 30 MG Magnesium Hydroxide 30 ml DAILY PO 10/07/24 10:00 objective GENERAL: Alert and oriented x 3. No acute distress. EYES: PERRL, EOMI. Anicteric. HENT: Moist mucous membranes. LUNGS: Clear to auscultation bilaterally. CARDIOVASCULAR: Regular rate and rhythm. ABDOMEN: Soft, nontender and nondistended. EXTREMITIES: No edema. NEUROLOGIC: No focal neurological deficits. SKIN: Warm, dry. laboratory and microbiology Laboratory Tests 10/07/24 06:12 Test 10/07/24 06:12 Range/Units Serum Glucose 86 74-106 mg/dL Problem List [place] decompensated HFrEF (EF 10%). Dilated cardiomyopathy, ?ischemic. Paroxysmal atrial fibrillation with RVR, now NSR. Elevated liver enzyme. Hypertension. Dyslipidemia. Obesity. Assessment/Plan Continued all current supportive medical care. Nebulized breathing treatments. Additional plan as per the hospital course. Dietary Evaluation Review Comments: cardiac diet wt mgt Expected Outcomes/Goals: wt loss Plan discussed with: Patient ADRIÁN OGDEN MD Oct 07, 2024 12:31
[2024-10-08] VITALS (12 sets, daily range): BP systolic 94–120; BP diastolic 60–74; PULSE 64–87; RESP 17–18; TEMP 36.6; O2SAT 92–100
[2024-10-08 07:11] LABS: Anion Gap 8 (5-15); Carbon Dioxide 32 mmol/L (20-31); Chloride 100 mmol/L (98-107); Potassium 4.0 mmol/L (3.5-5.1); Sodium 140 mmol/L (136-145)
[2024-10-08 07:14] LABS: Hematocrit 41.0 % (41.0-53.0); Hemoglobin 13.9 g/dL (13.5-17.5); Mean Corpuscular Hemoglobin 33.4 pg (28.0-32.0); Mean Corpuscular Volume 98.7 fL (80.0-100.0); Nucleated Red Blood Cells % 0.1 %
[2024-10-08 07:16] LABS: Calcium 8.5 mg/dL (8.7-10.4)
[2024-10-08 07:17] LABS: BUN/Creatinine Ratio 13.1 (10.0-20.0); Blood Urea Nitrogen 11 mg/dL (9-23); Glucose 89 mg/dL (74-106)
[2024-10-08] MEDS ORDERED: APIX5TAB PO (11:43)
[2024-10-08] MEDS ORDERED: AMIO200T13 PO (11:43)
[2024-10-08] MEDS ORDERED: FURO40TA4 PO (11:43)
[2024-10-08] MEDS ORDERED: DOCU-265 PO (11:43)
[2024-10-08] MEDS ORDERED: MOMLQ PO (11:43)
[2024-10-08] MEDS ORDERED: MET25T PO (11:43)
[2024-10-08] MEDS: APIXABAN 5 MG TAB PO SCH (13:40)
--- NOTE | 2024-10-08 17:39 | DVHPN2 ---
Progress Note - Dictate Date Seen: Oct 08, 2024 Medical Necessity Reason Pt with a Central, PICC or Fol: No Subjective Patient was seen and evaluated in follow up. No overnight events. Zoll life vest was delivered to the patients bedside this morning. Patient denies any complaints. CO2 32. Telemetry reviewed. vital signs Vital Sign Date Time Temp Pulse Resp B/P (MAP) Pulse Ox O2 Delivery O2 Flow Rate FiO2 10/08/24 10:41 64 95/60 10/08/24 10:25 97 Room Air 10/08/24 10:25 0 21 10/08/24 08:00 97.8 17 97.8 Total Intake and Output 10/07/24 10/07/24 10/08/24 15:00 23:00 07:00 Intake Total 150 ml 850 ml 910 ml Output Total 600 ml Balance 150 ml 850 ml 310 ml medications Current Medications Medications Dose Ordered Sig/Gideon Route Start Time Stop Time Status Last Admin Dose Admin Ipratropium [place] 0.5 mg Q8HPRN PRN NEB 10/02/24 23:15 Albuterol 2.5 mg Q8HPRN PRN NEB 10/02/24 23:15 Docusate Sodium 100 mg BID PO 10/03/24 10:00 10/07/24 21:20 100 MG Polyethylene Glycol 17 gm DAILYPRN PRN PO 10/03/24 00:45 Ceftriaxone Sodium 50 ml @ 100 mls/hr DAILY@09 IV 10/03/24 07:00 10/08/24 08:34 100 MLS/HR Doxycycline Hyclate 100 ml @ 50 mls/hr Q12HR IV 10/03/24 10:00 10/08/24 09:35 50 MLS/HR Empaglifozin 10 mg DAILY PO 10/04/24 10:00 10/08/24 09:39 10 MG Sacubitril/ Valsartan 1 tab BID PO 10/03/24 22:00 10/08/24 09:42 1 TAB Acetaminophen 650 mg Q6HP PRN PO 10/04/24 16:00 10/06/24 23:43 650 MG Amiodarone HCl 200 mg Q12HR PO 10/05/24 22:00 10/08/24 09:41 200 MG Metoprolol Tartrate 12.5 mg BID PO 10/05/24 22:00 10/08/24 09:41 12.5 MG Furosemide 40 mg BIDD IV 10/05/24 18:00 10/07/24 18:05 40 MG Enoxaparin Sodium 30 mg DAILY SC 10/06/24 10:00 10/08/24 09:38 30 MG Magnesium Hydroxide 30 ml DAILY PO 10/07/24 10:00 10/08/24 09:39 30 ML Apixaban 5 mg BID PO 10/08/24 11:45 UNV objective GENERAL: Alert and oriented x 3. No acute distress. EYES: PERRL, EOMI. Anicteric. HENT: Moist mucous membranes. LUNGS: Clear to auscultation bilaterally. CARDIOVASCULAR: Regular rate and rhythm. ABDOMEN: Soft, nontender and nondistended. EXTREMITIES: No edema. NEUROLOGIC: No focal neurological deficits. SKIN: Warm, dry. laboratory and microbiology Laboratory Tests 10/08/24 06:14 Test 10/08/24 06:14 Range/Units Serum Glucose 89 74-106 mg/dL Problem List [place] decompensated HFrEF (EF 10%). Dilated cardiomyopathy, ?ischemic. Paroxysmal atrial fibrillation with RVR, now NSR. Elevated liver enzyme. Hypertension. Dyslipidemia. Obesity. Assessment/Plan Continued all current supportive medical care. Eliquis. Metoprolol. Amiodarone. Entresto. IV antibiotics as ordered. Nebulized breathing treatments. Additional plan as per the hospital course. Dietary Evaluation Review Comments: cardiac diet wt mgt Expected Outcomes/Goals: wt loss Plan discussed with: Patient ADRIÁN OGDEN MD Oct 08, 2024 12:16
--- NOTE | 2024-10-08 18:50 | DVHDSRES ---
Discharge Summary Date of Admission Resident Creating Document: ENMA VANEGAS RESIDENT Oct 02, 2024 at 22:58 Date of Discharge: Oct 05, 2024 Admitting Diagnosis Acute intractable abdominal pain Labs/Diagnostic Data: Laboratory Results Test 10/08/24 06:14 10/04/24 07:41 10/03/24 06:49 10/03/24 02:50 White Blood Count 5.9 10^3/uL (4.4-10.8) Red Blood Count 4.16 10^6/uL (4.5-5.90) Hemoglobin 13.9 g/dL (13.5-17.5) Hematocrit 41.0 % (41.0-53.0) Mean Corpuscular Volume 98.7 fL (80.0-100.0) Mean Corpuscular Hemoglobin 33.4 pg (28.0-32.0) Mean Corpuscular Hemoglobin Concent 33.9 g/dL (32.0-36.0) Red Cell Distribution Width 17.4 % (11.8-14.3) Platelet Count 149 10^3/uL (140-450) Mean Platelet Volume 7.6 fL (6.9-10.8) Neutrophils (%) (Auto) 54.9 % (37.0-80.0) Lymphocytes (%) (Auto) 24.9 % (10.0-50.0) Monocytes (%) (Auto) 15.5 % (0.0-12.0) Eosinophils (%) (Auto) 4.2 % (0.0-7.0) Basophils (%) (Auto) 0.5 % (0.0-2.0) Neutrophils # (Auto) 3.3 10 ^3/uL (1.6-8.6) Lymphocytes # (Auto) 1.5 10 ^3/uL (0.4-5.4) Monocytes # (Auto) 0.9 10 ^3/uL (0-1.3) Eosinophils # (Auto) 0.2 10 ^3/uL (0-0.8) Basophils # (Auto) 0 10 ^3/uL (0-0.2) Nucleated Red Blood Cells 0.1 % Sodium Level 140 mmol/L (136-145) Potassium Level 4.0 mmol/L (3.5-5.1) Chloride Level 100 mmol/L (98-107) Carbon Dioxide Level 32 mmol/L (20-31) Anion Gap 8 (5-15) Blood Urea Nitrogen 11 mg/dL (9-23) Creatinine 0.84 mg/dL (0.700-1.30) Glomerular Filtration Rate Calc 90 mL/min (>90) BUN/Creatinine Ratio 13.1 (10.0-20.0) Serum Glucose 89 mg/dL (74-106) Calcium Level 8.5 mg/dL (8.7-10.4) Magnesium Level 2.1 mg/dL (1.6-2.6) B-Type Natriuretic Peptide 2112.69 pg/mL (0-100) Hemoglobin A1c 5.7 % A1C (<5.7) Triglycerides Level 122 mg/dL (< 150) Cholesterol Level 125 mg/dL (< 200) LDL Cholesterol 80 mg/dL (< 100) HDL Cholesterol 34 mg/dL (40-59) Serum Osmolality 275 mOsm/kg (278-298) Test 10/03/24 00:10 10/02/24 23:18 10/02/24 18:54 10/02/24 18:11 Influenza Type A Antigen Negative (Negative) Influenza Type B Antigen Negative (Negative) SARS-CoV-2 Antigen (Rapid) Negative (NEGATIVE) Lactic Acid Level 1.6 mmol/L (0.4-2.0) Troponin I High Sensitivity 39 ng/L (</=54) Hepatitis A Antibody Total Positive (Negative) Hepatitis B Surface Antigen Negative (Negative) Hepatitis B Surface Antibody Negative (Negative) Hepatitis B Core Total Antibody Negative (Negative) Hepatitis C Antibody Negative (Negative) Prothrombin Time 14.1 sec (9.3-11.8) Prothrombin Time INR 1.37 (0.9-1.15) Total Bilirubin 2.5 mg/dL (0.2-1.0) Aspartate Amino Transferase (AST) 202 U/L (13-40) Alanine Aminotransferase (ALT) 174 U/L (7-40) Alkaline Phosphatase 111 U/L (46-116) Total Protein 6.3 g/dL (5.7-8.2) Albumin 4.3 g/dL (3.2-4.8) Lipase 36 U/L (12-53) Thyroid Stimulating Hormone (TSH) 2.42 uIU/mL (0.55-4.78) Other Laboratory Tests 10/08/24 06:14 Brief Hx & Hospital Course: Patient is a 79-year-old male with past medical history of hypertension, dyslipidemia, asthma, depression, gout who came in due to generalized abdominal pain. According to the patient, pain had been ongoing for the last 4-5 days and was associated with intermittent nausea and vomiting, he described the abdominal pain is cramping and located in the epigastric region with radiation to the midsternal chest area. Patient was evaluated in the ED for similar symptoms and discharged with Bentyl but symptoms continued to worsen which prompted this visit to the hospital. Patient also noted having nausea and chills along with 5 episodes of vomiting, he noted abdominal pain worsens with vomiting. The patient also had dizziness during this time. Patient noted 1 week ago he drank 1 bottle of Tequila, however, notes usually he will only drink alcohol occasionally. On review of systems patient complained of fatigue, chills, productive cough, shortness of breath, nausea, vomiting and constipation. The patient's shortness of breath gradually resolved over the course of his hospital stay. Chest x-ray showed cardiomegaly with small right pleural effusion. The goal of the patient showed dilated chambers with LVEF of 10%. Patient also had paroxysmal AFib with RVRs for which she was placed on amiodarone. The patient was given a life vest for his reduced ejection fraction and was asked to follow-up in the outpatient with Cardiology for possible placement of an ICD. On evaluation today the patient stated he is well his vitals were stable. Medications and recommendations were thoroughly explained and the patient stated understanding of the same. Eating a discussion was held with the patient were all questions were answered and all concerns were addressed. Past Medical History Hypertension, dyslipidemia, asthma, depression, gout Past Social History Smoking: Denies Alcohol: Occasionally, wine and Tequila Drugs: Denies Constitutional: malaise, No: Fever, Sweats, Weakness, Eyes: No: Pain, Vision change, Conjunctivae inflammation, Eyelid inflammation, Redness ENT: No: Ear pain, Ear discharge, Nose pain, Nose discharge, Nose congestion, Mouth pain, Mouth swelling, Throat pain, Throat swelling Respiratory: Cough, no Shortness of breath; mild SOB with excertion, Wheezing, Hemoptysis, Pleuritic Pain, Sputum, Wheezing Cardiovascular: No: Chest Pain, Palpitations, Orthopnea, Paroxysmal Noc. Dyspnea, Edema, Lt Headednes Gastrointestinal: no Nausea, Vomiting, Abdominal Pain, Constipation; No: Diarrhea, Melena, Hematochezia Genitourinary: No Dysuria, No Frequency, No Incontinence, No Hematuria, No Retention Musculoskeletal: No: neck pain, shoulder pain, arm pain, back pain, hand pain, leg pain, foot pain Skin: No: Rash, Lesions, Jaundice, Bruising Neurological: No: Weakness, Numbness, Incoordination, Change in speech, Confusion, Seizures Allergies: no known allergies General Appearance: Alert, Oriented X3, Cooperative, No acute distress HEENT: Atraumatic, PERRLA, EOMI, Other (Dry mucous membranes) Respiratory: Normal air movement, normal breath sounds Cardiovascular: Regular rate, Normal S1, Normal S2 Abdominal: Normal bowel sounds, Soft, obese abdomen,no tenderness Extremities: no edema Skin: No rashes Neuro: Normal speech Psych/Mental Status: Mental status NL, Mood NL Operations or Procedures 1.PROCEDURE(s): CXRP - CHEST PORTABLE REASON: chest pain ORDER NUMBER(s): [id number], ACCESSION NUMBER(s): [id number] CHEST RADIOGRAPH REASON FOR EXAM: chest pain COMPARISON: None TECHNIQUE: One view of the chest is provided FINDINGS: The cardiomediastinal silhouette is borderline enlarged. There is mild pulmonary edema. There is small right pleural effusion. There is bibasilar airspace disease that may represent atelectasis although pneumonia is not ruled out. There is no pneumothorax. IMPRESSION: Borderline cardiomegaly. Small right pleural effusion. Mild pulmonary edema. Bibasilar airspace disease may represent atelectasis although pneumonia is not ruled out. 2.PROCEDURE(s): CAPIV - CT CHEST/AB/PL W CON- IV ONLY REASON: abd pain, vomiting, chest pain ORDER NUMBER(s): [id number], ACCESSION NUMBER(s): [id number] CLINICAL HISTORY: abd pain, vomiting, chest pain TECHNIQUE: CT of the chest, abdomen and pelvis was performed with IV contrast 85 mL Omnipaque 300. This exam was performed according to our departmental dose optimization program. Up-to-date CT equipment and radiation dose reduction techniques are utilized as appropriate. 27.13 CTDI: 27.13 DLP: 27.13 COMPARISON: None FINDINGS: CHEST FINDINGS: Lower Neck: Unremarkable Axilla, Mediastinum and Kaia: No axillary, mediastinal, or hilar lymphadenopathy. Calcified mediastinal lymph nodes. Heart and Great Vessels: Cardiomegaly without pericardial effusion. [id number] 3-vessel calcified coronary artery disease. Mild aortic valve calcifications. The thoracic aorta is normal in caliber containing mild mixed atherosclerotic plaque. The central pulmonary arteries are patent. Airway, Lungs and Pleura: Trachea and central airways are patent. There is mild bronchial wall thickening bilaterally. Linear bibasilar scarring or atelectasis. Small right pleural effusion. Very mild interlobular septal thickening in the lung bases. No pneumothorax. Chest Wall and Osseous Structures: Mild multilevel Thoracic spondylosis. No destructive osseous lesion. Abdomen and Pelvis Findings: Liver and Biliary system: Very mild nodular contour of the liver. Major portal veins are patent. Gallbladder is normal caliber. There is no biliary ductal dilatation. Suggestion of mild gallbladder wall thickening. Spleen: Unremarkable. Adrenal Glands and Kidneys: Normal adrenal glands. No hydronephrosis or nephrolithiasis. Small hypodensities in the left kidney likely cysts. Pancreas and Retroperitoneum: Mild retroperitoneal edema. Unremarkable pancreas. No retroperitoneal lymphadenopathy. Aorta and Major Vessels: Abdominal aorta is patent and normal caliber with moderate mixed atherosclerotic plaque. 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 Bowel, Mesentery and Peritoneal space: Normal caliber small and large bowel. Mild distal colonic diverticulosis. Mild ascites. Mesenteric venous congestion. No free air or fluid collection. Pelvis: Circumferential bladder wall thickening. There is mild prostatomegaly. There is no pelvic lymphadenopathy. Abdominal wall and Osseous Structures: Small fat containing bilateral inguinal hernias. There is body wall edema. Moderate multilevel lumbar spondylosis. There is a chronic mild superior endplate compression fracture less than 25% height loss at L3. No destructive osseous lesion. IMPRESSION: CHF/ volume overload, with mild cardiomegaly, mild interstitial pulmonary edema, small right pleural effusion, mesenteric venous congestion and mild ascites, and mild body wall edema. Very mild nodular contour of the liver which could be fibrosis or less likely cirrhosis. Correlate with lFTs and clinical history. Mild distal colonic diverticulosis. Mild bladder wall thickening which could be related to chronic bladder outlet obstruction in the setting of mild prostatomegaly. Correlate with urinalysis if there is clinical concern for cystitis. [id number] 3-vessel calcified coronary artery disease. Mild aortic valve calcifications. 3.PROCEDURE(s): CXRP - CHEST PORTABLE REASON: chf ORDER NUMBER(s): [id number], ACCESSION NUMBER(s): [id number] CHEST RADIOGRAPH Indication: chf Technique: Single frontal view of the chest was obtained COMPARISON: CT CT CHEST/AB/PL W CON- IV ONLY on DOS: 10/02/24, XY CHEST PORTABLE on DOS: 10/02/24 FINDINGS: Lines and Tubes: None Lungs: Progressive right basilar pulmonary airspace disease. Suspected small bilateral pleural effusions. No pneumothorax. Cardiomediastinal contours: Unremarkable Bones: Unremarkable IMPRESSION: 1. Progressive right basilar pulmonary airspace disease and suspected small bilateral pleural effusions. 4.PROCEDURE(s): ECIDC - ECHO 2D MODE CARDIAC DOP REASON: chf? ORDER NUMBER(s): [id number], ACCESSION NUMBER(s): [id number] APPROVED REPORT EXAM: Two-dimensional and M-mode echocardiogram with Doppler and color Doppler. Blood Pressure: 118/56 mmHg INDICATION CHF? RISK FACTORS Height: 70, Weight: 231 DIMENSIONS LVDd 6.5 (3.8-5.7cm) LA (2D) 5.0 (1.9-4.0cm) Aortic Root 3.6 (2.0- 3.7cm) LVDs 5.9 (2.5-4.0cm) LA (MM) (1.9-4.0cm) Aortic Cusp Exc 1.2 (1.5- 2.0cm) EF (%) 20.0 (55-70%) Rt. Atrium 5.5 (1.9-4.0cm) Asc. Aorta cm Mitral Valve Mitral Mitral Stenosis E wave 0.65m/s MV Mean GR. mmHg A wave 0.25m/s MV Peak GR. 54mmHg E/A ratio 2.6 2D MVA cm2 DECEL Time 122ms PRESS 1/2 Time ms Aortic Valve Aortic Valve Aortic Stenosis V1 0.70m/s AO Mean GR. 5mmHg V2 1.55m/s AO Peak GR. 10mmHg LVOT Diameter 2.1 (1.8-2.4cm) Doppler NATALY 1.56cm2 AI P 1/2 Time 446.63ms Tricuspid Valve TR Velocity 2.69m/s RVSP 50mmHg Other Information Technically limited study due to body habitus, patient position and patient moving. Conclusion DILATED ALL CARDIAC CHAMBERS SEVERE GLOBAL HYPKINESIS OF ALL CARDIAC CHAMBERS LV EF IS IN RANGE OF ONLY 10% MODERATE DEGREE MR MODERATE DEGREE TR HEAVILY CALCIFIED AORTIC LEAFLETS AND DECREASED EXCURSION AORTIC VALVE AREA IS 1.56 CM SQUARE IT IS MODERATE DEGREE AORTIC STENOSIS MODERATE DEGREE PULMONARY HYPERTENSION RVSP IS 50 MM OF HG AND IS MODERATELY HIGH NO EFFUSION SIGNED BY: ADRIÁN OGDEN MD Condition at Discharge: Stable Final Diagnosis/Problems List Lactic acidosis Mild ascites Hyperkalemia Thrombocytopenia Hyperbilirubinemia History of depression, controlled Dilated cardiomyopathy Paroxysmal AFib with RVR Acute on chronic CHF with reduced ejection fraction History are asthma,no exacerbation Grade 2 obesity Colonic diverticulosis without diverticulitis Transaminitis Discharge Disposition: Home Discharge Instruct/Medications Diet: Cardiac 2g Na,low cholest Activity: No Restrictions, As Tolerated Follow Up/Referral: Please follow up in d/c clinic in 1-2 weeks Pleaes follow up with PCP and get referral for cardiology in 1-2 weeks Medications: lasix 20 po daily jardiance 10 mg po daily entresto 1 tablet po bid Scheduled Amiodarone HCl (Amiodarone HCl), 200 MG PO DAILY Apixaban Base (Eliquis), 5 MG PO BID Dicyclomine Hcl (Bentyl Capsule), 1 CAP PO TID Docusate Sodium (Docusate Sodium), 100 MG PO BID Empagliflozin (Jardiance), 10 MG PO DAILY Furosemide (Lasix), 1 TAB PO DAILY Magnesium Hydroxide (Milk Of Magnesia Oral Suspension), 30 ML PO DAILY Metoprolol Tartrate (Lopressor), 12.5 MG PO BID Sacubitril-Valsartan (Entresto 24-26 mg), 1 TAB PO BID Scheduled PRN Ondansetron Odt 4MG Tab (Zofran Po), 4 MG PO Q6HP PRN Discharge Statement: "Patient was advised to return to the ER or call 911 if any headaches, dizziness, shortness of breath, chest pain, abdominal pain, bleeding, fevers, or worsening of medical condition. Patient was counseled about treatment plan, medications, possible side effects, patientverbalized understanding. All questions were answered to the best of my ability. This discharge took greater then 30 minutes in planning, reviewing documentation, counseling the patient, and discussing with other team members." DME: Diagnosis: Severe orthopnea due to heart failure with reduced ejection fraction of 10% ASSESSMENT ASSESSMENT Assessment acute on chronic CHF with reduced EF commuity acquired pneumonia right sided pleural effusion mild ascites gastritis vs peptic ulcer disease Date of Service: Oct 08, 2024 Billing Provider: CORRIE WEBB MD Common Visit Codes: 64901-DRG/OBS DISCH DAY >30min ENAM VANEGAS RESIDENT Oct 08, 2024 18:50 CORRIE WEBB MD Oct 10, 2024 19:28
[2024-10-09] VITALS (10 sets, daily range): BP systolic 94–113; BP diastolic 63–72; PULSE 55–71; RESP 15–18; TEMP 97.4–98.4; O2SAT 96–98
--- NOTE | 2024-10-09 13:15 | DVHPNRES ---
Progress Note Date Seen: Oct 09, 2024 Resident Creating Document: LU ROBERTS Medical Necessity Reason Pt with a Central, PICC or Fol: No Subjective Review of Systems Patient is a 79-year-old male with past medical history of hypertension, dyslipidemia, asthma, depression, gout who came in due to generalized abdominal pain. According to the patient, pain has been ongoing for the last 4-5 days and is associated with intermittent nausea and vomiting, he describes the abdominal pain is cramping and located in the epigastric region with radiation to the midsternal chest area. Patient was evaluated in the ED yesterday for similar symptoms and discharged with Bentyl but symptoms continued to worsen which prompted this visit to the hospital. Patient also notes having nausea and chills along with 5 episodes of vomiting, he notes abdominal pain worsens with vomiting. The patient also had dizziness during this time. Of note, patient also takes ibuprofen once daily for the past 5-6 years. Patient notes 1 week ago he drank 1 bottle of Tequila, however, notes usually he will only drink alcohol occasionally. On review of systems patient is complaining of fatigue, chills, productive cough, shortness of breath, nausea, vomiting and constipation. 10/03-The patient still has shortness of breath but the abdominal pain has reduced. The patient mentions having trouble falling asleep since the last one month. BNP was 1640 and EKG showed sinus rhythm with RBBB, LPFB and prolonged QTc. Chest xray showed cardiomegaly with small right pleural effusion and bibasilar atelectasis in the lungs. CT showed CHF/volume overload with mild cardiomegaly and mild to moderate 3 vessel calcified CAD. Hence an Echo was ordered for the patient for further evaluation and workup which showed EF of 10% on preliminary evaluation. He was started on 2l oxygen. 10/04-Patient uses CPAP at home while sleeping at night. Echo showed dilated chambers of the heart with left ventricular ejection fraction of 10% and Cardiology asked him to follow up outpatient for possible placement of biventricular ICD. He is on 4 L oxygen by nasal cannula he is tolerating it well. 10/05-Patient has mild fatigue and is tolerating the 4 l oxygen well. The nurse mentioned patient has Afib with RVR when he stands up and walks a little. Cardiology and social and human services assistant were consulted regarding providing patient with a Life Vest till the placement of a biventricular ICD as recommended by cardiology. No adverse vents overnight. 10/06- The patient complains of dizziness on standing up and walking. The patient also has shortness of breath. Patient will be managed by cardiology outpatient and is waiting for clearance for Life Vest by his insurance. No adverse events in the last 24 hours. 10/07- The patient has some dizziness and is on 3L of oxygen by nasal canula. His insurance has approved of his LIfe Vest and has been delivered to the patient. Patient is asked to wear it and is being observed today before he gets discharged tomorrow. On evaluation today, he states he is well, pain is manageable. His vitals have remained stable for discharge home. All medications and recommendations were thoroughly explained and the patient states he understands and agrees. Detailed discussion held with patient at bedside were all questions were answered and concerns were addressed. Patient continues to await walker delivery; communication with [place] and [employer] is ongoing. Past Medical History Hypertension, dyslipidemia, asthma, depression, gout Past Social History Smoking: Denies Alcohol: Occasionally, wine and Tequila Drugs: Denies Constitutional: malaise, No: Fever, Sweats, Weakness, Eyes: No: Pain, Vision change, Conjunctivae inflammation, Eyelid inflammation, Redness ENT: No: Ear pain, Ear discharge, Nose pain, Nose discharge, Nose congestion, Mouth pain, Mouth swelling, Throat pain, Throat swelling Respiratory: Cough, Shortness of breath; No: SOB with excertion, Wheezing, Hemoptysis, Pleuritic Pain, Sputum, Wheezing Cardiovascular: No: Chest Pain, Palpitations, Orthopnea, Paroxysmal Noc. Dyspnea, Edema, Lt Headednes Gastrointestinal: no Nausea, Vomiting, Abdominal Pain, Constipation; No: Diarrhea, Melena, Hematochezia Genitourinary: No Dysuria, No Frequency, No Incontinence, No Hematuria, No Retention Musculoskeletal: No: neck pain, shoulder pain, arm pain, back pain, hand pain, leg pain, foot pain Skin: No: Rash, Lesions, Jaundice, Bruising Neurological: No: Weakness, Numbness, Incoordination, Change in speech, Confusion, Seizures Allergies: no known allergies Objective vital signs Vital Sign Date Time Temp Pulse Resp B/P (MAP) Pulse Ox O2 Delivery O2 Flow Rate FiO2 10/09/24 10:15 97 Room Air 10/09/24 10:15 0 21 10/09/24 09:44 67 100/56 10/09/24 08:15 97.9 17 97.9 Total Intake and Output 10/08/24 10/08/24 10/09/24 15:00 23:00 07:00 Intake Total 1628 ml 550 ml 900 ml Output Total 416 ml 620 ml 450 ml Balance 1212 ml -70 ml 450 ml medications Current Medications Medications Dose Ordered Sig/Gideon Route Start Time Stop Time Status Last Admin Dose Admin Ipratropium [place] 0.5 mg Q8HPRN PRN NEB 10/02/24 23:15 Albuterol 2.5 mg Q8HPRN PRN NEB 10/02/24 23:15 Docusate Sodium 100 mg BID PO 10/03/24 10:00 10/09/24 09:39 100 MG Polyethylene Glycol 17 gm DAILYPRN PRN PO 10/03/24 00:45 Ceftriaxone Sodium 50 ml @ 100 mls/hr DAILY@09 IV 10/03/24 07:00 10/08/24 08:34 100 MLS/HR Doxycycline Hyclate 100 ml @ 50 mls/hr Q12HR IV 10/03/24 10:00 10/08/24 09:35 50 MLS/HR Empaglifozin 10 mg DAILY PO 10/04/24 10:00 10/09/24 09:42 10 MG Sacubitril/ Valsartan 1 tab BID PO 10/03/24 22:00 10/08/24 22:33 1 TAB Acetaminophen 650 mg Q6HP PRN PO 10/04/24 16:00 10/06/24 23:43 650 MG Amiodarone HCl 200 mg Q12HR PO 10/05/24 22:00 10/09/24 09:42 200 MG Metoprolol Tartrate 12.5 mg BID PO 10/05/24 22:00 10/08/24 09:41 12.5 MG Furosemide 40 mg BIDD IV 10/05/24 18:00 10/08/24 17:37 40 MG Magnesium Hydroxide 30 ml DAILY PO 10/07/24 10:00 10/09/24 09:42 30 ML Apixaban 5 mg BID PO 10/08/24 14:00 10/09/24 09:42 5 MG Examination General Appearance: Alert, Oriented X3, Cooperative, No acute distress HEENT: Atraumatic, PERRLA, EOMI, Other (Dry mucous membranes) Respiratory: Normal air movement, normal breath sounds Cardiovascular: Regular rate, Normal S1, Normal S2 Abdominal: Normal bowel sounds, Soft, obese abdomen,no tenderness Extremities: Other (1+ lower extremity pitting edema) Skin: No rashes Neuro: Normal speech Psych/Mental Status: Mental status NL, Mood NL laboratory and microbiology Laboratory Tests 10/08/24 06:14 Test 10/08/24 06:14 Range/Units Serum Glucose 89 74-106 mg/dL Microbiology Date/Time Source Procedure Growth Status 10/03/24 10:32 Nose MRSA Screen - Final Complete 10/02/24 23:22 Blood Blood Culture - Final NO GROWTH AFTER 5 DAYS OF INCUBATION. Complete Labs and/or images reviewed: Labs reviewed by me, Image(s) reviewed by me Problem List/Assessment/Plan Problem List/Assessment/Plan Lactic acidosis Ruled out ACS ? Gastritis versus peptic ulcer disease Prolonged QTC Mild ascites - CT abdomen pelvis: CHF/volume overload, with mild cardiomegaly, mild interstitial pulmonary edema, small right pleural effusion, mesenteric venous congestion and mild ascites, mild body wall edema. Very mild nodular contour of the liver which could be fibrosis or less likely cirrhosis. Mild bladder wall thickening which could be related to chronic bladder outlet obstruction. Mild distal colonic diverticulosis. [id number] three-vessel calcified coronary artery disease. Mild aortic valve calcifications. - serial troponins 39, 39 - aspirin 162 mg once - IV NS 1 L once Hyperkalemia Chronic asymptomatic hyponatremia - hyperkalemia protocol - ordered serum osmolality, urine osmolality, urine sodium - monitor Thrombocytopenia, mild - monitor Hyperbilirubinemia Transaminitis - CT abdomen pelvis: Mesenteric venous congestion and mild ascites. Very mild nodular contour of the liver which could be fibrosis or less likely cirrhosis - monitor De roxy Acute on chronic CHF with reduced ejection fraction Right-sided pleural effusion Questionable community-acquired pneumonia, Gram-positive versus Gram-negative? pulmonary edema likely due to above Dilated cardiomyopathy, ?ischemic Paroxysmal atrial fibrillation with RVR, now NSR - CXR: Borderline cardiomegaly. Small right pleural effusion. Mild pulmonary edema. Bibasilar airspace disease may represent atelectasis although pneumonia is not ruled out. - serum BNP 1680.72 - IV Lasix 40 mg once - ordered echocardiogram - ordered respiratory cultures, COVID, influenza testing - IV ceftriaxone, IV doxycycline Colonic diverticulosis without diverticulitis Constipation, likely slow transit - Colace 100 mg b.i.d., MiraLax 17 g as needed - monitor Grade 2 obesity - counselled extensively on lifestyle modification including healthy diet and activity History of depression - resumed home medication trazodone 50 mg q.p.m., discontinued by cardiology for adverse effect of QT prolongation - monitor History of asthma - ipratropium and albuterol med nebs Q 8 hours as needed -on 3L oxygen by nasal canula PUD prophylaxis: protonix 40mg DVT prophylaxis: SCDs Goals of care: Full code, discussed for >20 minutes on 10/09/2024 Plan discussed with patient Plan discussed with Dr. Kam Plan discussed with: Patient Dietary Evaluation Review Comments: cardiac diet wt mgt Expected Outcomes/Goals: wt loss Date of Service: Oct 09, 2024 Billing Provider: CORRIE KAM MD Common Visit Codes: [id number] INP/OBS CARE(HIGH) LU ROBERTS RESIDENT Oct 09, 2024 13:15 CORRIE KAM MD Oct 10, 2024 19:29
--- NOTE | 2024-10-09 23:24 | DVHPN2 ---
Progress Note - Dictate Date Seen: Oct 09, 2024 Medical Necessity Reason Pt with a Central, PICC or Fol: No Subjective Patient was seen and evaluated in follow up. No overnight events. Patient is resting in bed without any current complaints. Patient's discharge is delayed due to wheelchair/walker not being delivered. CM is working on DME delivery. Telemetry reviewed. vital signs Vital Sign Date Time Temp Pulse Resp B/P (MAP) Pulse Ox O2 Delivery O2 Flow Rate FiO2 10/09/24 10:15 97 Room Air 10/09/24 10:15 0 21 10/09/24 09:44 67 100/56 10/09/24 08:15 97.9 17 97.9 Total Intake and Output 10/08/24 10/08/24 10/09/24 15:00 23:00 07:00 Intake Total 1628 ml 550 ml 900 ml Output Total 416 ml 620 ml 450 ml Balance 1212 ml -70 ml 450 ml medications Current Medications Medications Dose Ordered Sig/Gideon Route Start Time Stop Time Status Last Admin Dose Admin Ipratropium [place] 0.5 mg Q8HPRN PRN NEB 10/02/24 23:15 Albuterol 2.5 mg Q8HPRN PRN NEB 10/02/24 23:15 Docusate Sodium 100 mg BID PO 10/03/24 10:00 10/09/24 09:39 100 MG Polyethylene Glycol 17 gm DAILYPRN PRN PO 10/03/24 00:45 Ceftriaxone Sodium 50 ml @ 100 mls/hr DAILY@09 IV 10/03/24 07:00 10/08/24 08:34 100 MLS/HR Doxycycline Hyclate 100 ml @ 50 mls/hr Q12HR IV 10/03/24 10:00 10/08/24 09:35 50 MLS/HR Empaglifozin 10 mg DAILY PO 10/04/24 10:00 10/09/24 09:42 10 MG Sacubitril/ Valsartan 1 tab BID PO 10/03/24 22:00 10/08/24 22:33 1 TAB Acetaminophen 650 mg Q6HP PRN PO 10/04/24 16:00 10/06/24 23:43 650 MG Amiodarone HCl 200 mg Q12HR PO 10/05/24 22:00 10/09/24 09:42 200 MG Metoprolol Tartrate 12.5 mg BID PO 10/05/24 22:00 10/08/24 09:41 12.5 MG Furosemide 40 mg BIDD IV 10/05/24 18:00 10/08/24 17:37 40 MG Magnesium Hydroxide 30 ml DAILY PO 10/07/24 10:00 10/09/24 09:42 30 ML Apixaban 5 mg BID PO 10/08/24 14:00 10/09/24 09:42 5 MG objective GENERAL: Alert and oriented x 3. No acute distress. EYES: PERRL, EOMI. Anicteric. HENT: Moist mucous membranes. LUNGS: Clear to auscultation bilaterally. CARDIOVASCULAR: Regular rate and rhythm. ABDOMEN: Soft, nontender and nondistended. EXTREMITIES: No edema. NEUROLOGIC: No focal neurological deficits. SKIN: Warm, dry. laboratory and microbiology Laboratory Tests 10/08/24 06:14 Test 10/08/24 06:14 Range/Units Serum Glucose 89 74-106 mg/dL Problem List [place] decompensated HFrEF (EF 10%). Dilated cardiomyopathy, ?ischemic. Paroxysmal atrial fibrillation with RVR, now NSR. Elevated liver enzyme. Hypertension. Dyslipidemia. Obesity. Assessment/Plan Continued all current supportive medical care. Eliquis. Amiodarone. Nebulized breathing treatments. Additional plan as per the hospital course. Dietary Evaluation Review Comments: cardiac diet wt mgt Expected Outcomes/Goals: wt loss Plan discussed with: Patient ADRIÁN OGDEN MD Oct 09, 2024 12:28
[2024-10-10] VITALS (9 sets, daily range): BP systolic 99–111; BP diastolic 64–78; PULSE 50–72; RESP 16–18; TEMP 97.5–98; O2SAT 95–100
--- NOTE | 2024-10-10 09:21 | MEDREC ---
[facility] Intervention Section I [facility] Intervention: Review courses of therapy (PLEASE CONSIDER D/C ANTIBIOTIC IF NO MORE CONCERN FOR INFECTION AND PATIENT CLINICALLY STABLE ) ANTWON LOMAX PHARMACIST Oct 10, 2024 09:21
--- NOTE | 2024-10-10 18:13 | DVHPNRES ---
Progress Note Date Seen: Oct 10, 2024 Resident Creating Document: ENMA VANEGAS RESIDENT Medical Necessity Reason Pt with a Central, PICC or Fol: No Subjective Review of Systems Patient is a 79-year-old male with past medical history of hypertension, dyslipidemia, asthma, depression, gout who came in due to generalized abdominal pain. According to the patient, pain has been ongoing for the last 4-5 days and is associated with intermittent nausea and vomiting, he describes the abdominal pain is cramping and located in the epigastric region with radiation to the midsternal chest area. Patient was evaluated in the ED yesterday for similar symptoms and discharged with Bentyl but symptoms continued to worsen which prompted this visit to the hospital. Patient also notes having nausea and chills along with 5 episodes of vomiting, he notes abdominal pain worsens with vomiting. The patient also had dizziness during this time. Of note, patient also takes ibuprofen once daily for the past 5-6 years. Patient notes 1 week ago he drank 1 bottle of Tequila, however, notes usually he will only drink alcohol occasionally. On review of systems patient is complaining of fatigue, chills, productive cough, shortness of breath, nausea, vomiting and constipation. 10/03-The patient still has shortness of breath but the abdominal pain has reduced. The patient mentions having trouble falling asleep since the last one month. BNP was 1640 and EKG showed sinus rhythm with RBBB, LPFB and prolonged QTc. Chest xray showed cardiomegaly with small right pleural effusion and bibasilar atelectasis in the lungs. CT showed CHF/volume overload with mild cardiomegaly and mild to moderate 3 vessel calcified CAD. Hence an Echo was ordered for the patient for further evaluation and workup which showed EF of 10% on preliminary evaluation. He was started on 2l oxygen. 10/04-Patient uses CPAP at home while sleeping at night. Echo showed dilated chambers of the heart with left ventricular ejection fraction of 10% and Cardiology asked him to follow up outpatient for possible placement of biventricular ICD. He is on 4 L oxygen by nasal cannula he is tolerating it well. 10/05-Patient has mild fatigue and is tolerating the 4 l oxygen well. The nurse mentioned patient has Afib with RVR when he stands up and walks a little. Cardiology and administrator social welfare were consulted regarding providing patient with a Life Vest till the placement of a biventricular ICD as recommended by cardiology. No adverse vents overnight. 10/06- The patient complains of dizziness on standing up and walking. The patient also has shortness of breath. Patient will be managed by cardiology outpatient and is waiting for clearance for Life Vest by his insurance. No adverse events in the last 24 hours. 10/07- The patient has some dizziness and is on 3L of oxygen by nasal canula. His insurance has approved of his LIfe Vest and has been delivered to the patient. Patient is asked to wear it and is being observed today before he gets discharged tomorrow. 10/08-On evaluation today, he states he is well, pain is manageable. His vitals have remained stable for discharge home. All medications and recommendations were thoroughly explained and the patient states he understands and agrees. Detailed discussion held with patient at bedside were all questions were answered and concerns were addressed. Patient continues to await walker delivery; communication with [place] and [employer] is ongoing. 10/09-the patient is stable with stable vitals and labs within normal range. He is waiting for his walker delivery. 10/10- on evaluation today, patient states that he is doing well and his pain is managed. His vitals have remained stable and labs are within range. He is wearing the life vest currently feels comfortable wearing it. He is awaiting for communication from his insurance regarding delivery of the walker. Past Medical History Hypertension, dyslipidemia, asthma, depression, gout Past Social History Smoking: Denies Alcohol: Occasionally, wine and Tequila Drugs: Denies Constitutional: malaise, No: Fever, Sweats, Weakness, Eyes: No: Pain, Vision change, Conjunctivae inflammation, Eyelid inflammation, Redness ENT: No: Ear pain, Ear discharge, Nose pain, Nose discharge, Nose congestion, Mouth pain, Mouth swelling, Throat pain, Throat swelling Respiratory: Cough, Shortness of breath; No: SOB with excertion, Wheezing, Hemoptysis, Pleuritic Pain, Sputum, Wheezing Cardiovascular: No: Chest Pain, Palpitations, Orthopnea, Paroxysmal Noc. Dyspnea, Edema, Lt Headednes Gastrointestinal: no Nausea, Vomiting, Abdominal Pain, Constipation; No: Diarrhea, Melena, Hematochezia Genitourinary: No Dysuria, No Frequency, No Incontinence, No Hematuria, No Retention Musculoskeletal: No: neck pain, shoulder pain, arm pain, back pain, hand pain, leg pain, foot pain Skin: No: Rash, Lesions, Jaundice, Bruising Neurological: No: Weakness, Numbness, Incoordination, Change in speech, Confusion, Seizures Allergies: no known allergies Objective vital signs Vital Sign Date Time Temp Pulse Resp B/P (MAP) Pulse Ox O2 Delivery O2 Flow Rate FiO2 10/10/24 17:15 97.6 71 18 109/75 (86) 96 97.6 10/10/24 10:00 Room Air* 0 21 Total Intake and Output 10/09/24 10/09/24 10/10/24 15:00 23:00 07:00 Intake Total 1002 ml 850 ml 550 ml Output Total 550 ml 800 ml Balance 1002 ml 300 ml -250 ml medications Current Medications Medications Dose Ordered Sig/Gideon Route Start Time Stop Time Status Last Admin Dose Admin Ipratropium [place] 0.5 mg Q8HPRN PRN NEB 10/02/24 23:15 Cancel Albuterol 2.5 mg Q8HPRN PRN NEB 10/02/24 23:15 Cancel Docusate Sodium 100 mg BID PO 10/03/24 10:00 10/10/24 10:58 100 MG Polyethylene Glycol 17 gm DAILYPRN PRN PO 10/03/24 00:45 Ceftriaxone Sodium 50 ml @ 100 mls/hr DAILY@09 IV 10/03/24 07:00 10/08/24 08:34 100 MLS/HR Doxycycline Hyclate 100 ml @ 50 mls/hr Q12HR IV 10/03/24 10:00 10/08/24 09:35 50 MLS/HR Empaglifozin 10 mg DAILY PO 10/04/24 10:00 10/10/24 11:08 10 MG Sacubitril/ Valsartan 1 tab BID PO 10/03/24 22:00 10/10/24 10:56 1 TAB Acetaminophen 650 mg Q6HP PRN PO 10/04/24 16:00 10/10/24 10:56 650 MG Amiodarone HCl 200 mg Q12HR PO 10/05/24 22:00 10/10/24 10:56 200 MG Metoprolol Tartrate 12.5 mg BID PO 10/05/24 22:00 10/10/24 10:57 12.5 MG Furosemide 40 mg BIDD IV 10/05/24 18:00 10/08/24 17:37 40 MG Magnesium Hydroxide 30 ml DAILY PO 10/07/24 10:00 10/10/24 10:55 30 ML Apixaban 5 mg BID PO 10/08/24 14:00 10/10/24 10:58 5 MG Examination General Appearance: Alert, Oriented X3, Cooperative, No acute distress HEENT: Atraumatic, PERRLA, EOMI, Other (Dry mucous membranes) Respiratory: Normal air movement, normal breath sounds Cardiovascular: Regular rate, Normal S1, Normal S2 Abdominal: Normal bowel sounds, Soft, obese abdomen,no tenderness Extremities: Other (1+ lower extremity pitting edema) Skin: No rashes Neuro: Normal speech Psych/Mental Status: Mental status NL, Mood NL laboratory and microbiology Laboratory Tests 10/08/24 06:14 Test 10/08/24 06:14 Range/Units Serum Glucose 89 74-106 mg/dL Microbiology Date/Time Source Procedure Growth Status 10/03/24 10:32 Nose MRSA Screen - Final Complete 10/02/24 23:22 Blood Blood Culture - Final NO GROWTH AFTER 5 DAYS OF INCUBATION. Complete Labs and/or images reviewed: Labs reviewed by me, Image(s) reviewed by me Problem List/Assessment/Plan Problem List/Assessment/Plan Lactic acidosis Ruled out ACS ? Gastritis versus peptic ulcer disease Prolonged QTC Mild ascites - CT abdomen pelvis: CHF/volume overload, with mild cardiomegaly, mild interstitial pulmonary edema, small right pleural effusion, mesenteric venous congestion and mild ascites, mild body wall edema. Very mild nodular contour of the liver which could be fibrosis or less likely cirrhosis. Mild bladder wall thickening which could be related to chronic bladder outlet obstruction. Mild distal colonic diverticulosis. [id number] three-vessel calcified coronary artery disease. Mild aortic valve calcifications. - serial troponins 39, 39 - aspirin 162 mg once - IV NS 1 L once Hyperkalemia Chronic asymptomatic hyponatremia - hyperkalemia protocol - ordered serum osmolality, urine osmolality, urine sodium - monitor Thrombocytopenia, mild - monitor Hyperbilirubinemia Transaminitis - CT abdomen pelvis: Mesenteric venous congestion and mild ascites. Very mild nodular contour of the liver which could be fibrosis or less likely cirrhosis - monitor De roxy Acute on chronic CHF with reduced ejection fraction Right-sided pleural effusion Questionable community-acquired pneumonia, Gram-positive versus Gram-negative? pulmonary edema likely due to above Dilated cardiomyopathy, ?ischemic Paroxysmal atrial fibrillation with RVR, now NSR - CXR: Borderline cardiomegaly. Small right pleural effusion. Mild pulmonary edema. Bibasilar airspace disease may represent atelectasis although pneumonia is not ruled out. - serum BNP 1680.72 - IV Lasix 40 mg once - ordered echocardiogram - ordered respiratory cultures, COVID, influenza testing - IV ceftriaxone, IV doxycycline Colonic diverticulosis without diverticulitis Constipation, likely slow transit - Colace 100 mg b.i.d., MiraLax 17 g as needed - monitor Grade 2 obesity - counselled extensively on lifestyle modification including healthy diet and activity History of depression - resumed home medication trazodone 50 mg q.p.m., discontinued by cardiology for adverse effect of QT prolongation - monitor History of asthma - ipratropium and albuterol med nebs Q 8 hours as needed -on 3L oxygen by nasal canula PUD prophylaxis: protonix 40mg DVT prophylaxis: SCDs Goals of care: Full code, discussed for >20 minutes on 10/10/2024 Plan discussed with patient Plan discussed with Dr. Kam Plan discussed with: Patient Plan discussed with: Patient Dietary Evaluation Review Comments: cardiac diet wt mgt Expected Outcomes/Goals: wt loss Date of Service: Oct 10, 2024 Billing Provider: CORRIE KAM MD Common Visit Codes: [id number] INP/OBS CARE(MOD) ENMA VANEGAS RESIDENT Oct 10, 2024 18:13 CORRIE KAM MD Oct 10, 2024 19:29
--- NOTE | 2024-10-10 20:12 | DVHPN2 ---
Progress Note - Dictate Date Seen: Oct 10, 2024 Medical Necessity Reason Pt with a Central, PICC or Fol: No Subjective Patient was seen and evaluated in follow up. Patient reports feeling well today, does not voice any complaints. Pain is well managed. He is wearing the life vest currently feels comfortable wearing it. Pending DME arrangements. Telemetry reviewed. vital signs Vital Sign Date Time Temp Pulse Resp B/P (MAP) Pulse Ox O2 Delivery O2 Flow Rate FiO2 10/10/24 13:01 97.8 69 18 107/72 (84) 96 97.8 10/10/24 10:00 Room Air* 0 21 Total Intake and Output 10/09/24 10/09/24 10/10/24 15:00 23:00 07:00 Intake Total 1002 ml 850 ml 550 ml Output Total 550 ml 800 ml Balance 1002 ml 300 ml -250 ml medications Current Medications Medications Dose Ordered Sig/Gideon Route Start Time Stop Time Status Last Admin Dose Admin Ipratropium [place] 0.5 mg Q8HPRN PRN NEB 10/02/24 23:15 Cancel Albuterol 2.5 mg Q8HPRN PRN NEB 10/02/24 23:15 Cancel Docusate Sodium 100 mg BID PO 10/03/24 10:00 10/10/24 10:58 100 MG Polyethylene Glycol 17 gm DAILYPRN PRN PO 10/03/24 00:45 Ceftriaxone Sodium 50 ml @ 100 mls/hr DAILY@09 IV 10/03/24 07:00 10/08/24 08:34 100 MLS/HR Doxycycline Hyclate 100 ml @ 50 mls/hr Q12HR IV 10/03/24 10:00 10/08/24 09:35 50 MLS/HR Empaglifozin 10 mg DAILY PO 10/04/24 10:00 10/10/24 11:08 10 MG Sacubitril/ Valsartan 1 tab BID PO 10/03/24 22:00 10/10/24 10:56 1 TAB Acetaminophen 650 mg Q6HP PRN PO 10/04/24 16:00 10/10/24 10:56 650 MG Amiodarone HCl 200 mg Q12HR PO 10/05/24 22:00 10/10/24 10:56 200 MG Metoprolol Tartrate 12.5 mg BID PO 10/05/24 22:00 10/10/24 10:57 12.5 MG Furosemide 40 mg BIDD IV 10/05/24 18:00 10/08/24 17:37 40 MG Magnesium Hydroxide 30 ml DAILY PO 10/07/24 10:00 10/10/24 10:55 30 ML Apixaban 5 mg BID PO 10/08/24 14:00 10/10/24 10:58 5 MG objective GENERAL: Alert and oriented x 3. No acute distress. EYES: PERRL, EOMI. Anicteric. HENT: Moist mucous membranes. LUNGS: Clear to auscultation bilaterally. CARDIOVASCULAR: Regular rate and rhythm. ABDOMEN: Soft, nontender and nondistended. EXTREMITIES: No edema. NEUROLOGIC: No focal neurological deficits. SKIN: Warm, dry. laboratory and microbiology Laboratory Tests 10/08/24 06:14 Test 10/08/24 06:14 Range/Units Serum Glucose 89 74-106 mg/dL Problem List [place] decompensated HFrEF (EF 10%). Dilated cardiomyopathy, ?ischemic. Paroxysmal atrial fibrillation with RVR, now NSR. Elevated liver enzyme. Hypertension. Dyslipidemia. Obesity. Assessment/Plan Continued all current supportive medical care. Eliquis. Metoprolol. Amiodarone. Entresto. Additional plan as per the hospital course. Dietary Evaluation Review Comments: cardiac diet wt mgt Expected Outcomes/Goals: wt loss Plan discussed with: Patient ADRIÁN OGDEN MD Oct 10, 2024 13:53
[2024-10-11 01:11] VITALS: BP 101/72; PULSE 64; RESP 17; TEMP 98.2; O2SAT 95
[2024-10-11 05:13] VITALS: BP 99/64; PULSE 61; RESP 16; TEMP 97.9; O2SAT 99
[2024-10-11 08:00] VITALS: PULSE 62
[2024-10-11 08:45] VITALS: BP 108/85; PULSE 67; RESP 18; TEMP 97.4; O2SAT 99
[2024-10-11 10:00] VITALS: O2SAT 99
[2024-10-11] MEDS: FUROSEMIDE 20 MG TAB PO ONE (10:04)
--- NOTE | 2024-10-11 11:04 | DVHDSRES ---
Discharge Summary Date of Admission Resident Creating Document: ENMA VANEGAS RESIDENT Oct 02, 2024 at 22:58 Date of Discharge: Oct 05, 2024 Admitting Diagnosis acute intractable abdominal pain Labs/Diagnostic Data: Laboratory Results Test 10/08/24 06:14 10/04/24 07:41 10/03/24 06:49 10/03/24 02:50 White Blood Count 5.9 10^3/uL (4.4-10.8) Red Blood Count 4.16 10^6/uL (4.5-5.90) Hemoglobin 13.9 g/dL (13.5-17.5) Hematocrit 41.0 % (41.0-53.0) Mean Corpuscular Volume 98.7 fL (80.0-100.0) Mean Corpuscular Hemoglobin 33.4 pg (28.0-32.0) Mean Corpuscular Hemoglobin Concent 33.9 g/dL (32.0-36.0) Red Cell Distribution Width 17.4 % (11.8-14.3) Platelet Count 149 10^3/uL (140-450) Mean Platelet Volume 7.6 fL (6.9-10.8) Neutrophils (%) (Auto) 54.9 % (37.0-80.0) Lymphocytes (%) (Auto) 24.9 % (10.0-50.0) Monocytes (%) (Auto) 15.5 % (0.0-12.0) Eosinophils (%) (Auto) 4.2 % (0.0-7.0) Basophils (%) (Auto) 0.5 % (0.0-2.0) Neutrophils # (Auto) 3.3 10 ^3/uL (1.6-8.6) Lymphocytes # (Auto) 1.5 10 ^3/uL (0.4-5.4) Monocytes # (Auto) 0.9 10 ^3/uL (0-1.3) Eosinophils # (Auto) 0.2 10 ^3/uL (0-0.8) Basophils # (Auto) 0 10 ^3/uL (0-0.2) Nucleated Red Blood Cells 0.1 % Sodium Level 140 mmol/L (136-145) Potassium Level 4.0 mmol/L (3.5-5.1) Chloride Level 100 mmol/L (98-107) Carbon Dioxide Level 32 mmol/L (20-31) Anion Gap 8 (5-15) Blood Urea Nitrogen 11 mg/dL (9-23) Creatinine 0.84 mg/dL (0.700-1.30) Glomerular Filtration Rate Calc 90 mL/min (>90) BUN/Creatinine Ratio 13.1 (10.0-20.0) Serum Glucose 89 mg/dL (74-106) Calcium Level 8.5 mg/dL (8.7-10.4) Magnesium Level 2.1 mg/dL (1.6-2.6) B-Type Natriuretic Peptide 2112.69 pg/mL (0-100) Hemoglobin A1c 5.7 % A1C (<5.7) Triglycerides Level 122 mg/dL (< 150) Cholesterol Level 125 mg/dL (< 200) LDL Cholesterol 80 mg/dL (< 100) HDL Cholesterol 34 mg/dL (40-59) Serum Osmolality 275 mOsm/kg (278-298) Test 10/03/24 00:10 10/02/24 23:18 10/02/24 18:54 10/02/24 18:11 Influenza Type A Antigen Negative (Negative) Influenza Type B Antigen Negative (Negative) SARS-CoV-2 Antigen (Rapid) Negative (NEGATIVE) Lactic Acid Level 1.6 mmol/L (0.4-2.0) Troponin I High Sensitivity 39 ng/L (</=54) Hepatitis A Antibody Total Positive (Negative) Hepatitis B Surface Antigen Negative (Negative) Hepatitis B Surface Antibody Negative (Negative) Hepatitis B Core Total Antibody Negative (Negative) Hepatitis C Antibody Negative (Negative) Prothrombin Time 14.1 sec (9.3-11.8) Prothrombin Time INR 1.37 (0.9-1.15) Total Bilirubin 2.5 mg/dL (0.2-1.0) Aspartate Amino Transferase (AST) 202 U/L (13-40) Alanine Aminotransferase (ALT) 174 U/L (7-40) Alkaline Phosphatase 111 U/L (46-116) Total Protein 6.3 g/dL (5.7-8.2) Albumin 4.3 g/dL (3.2-4.8) Lipase 36 U/L (12-53) Thyroid Stimulating Hormone (TSH) 2.42 uIU/mL (0.55-4.78) Other Laboratory Tests 10/08/24 06:14 Brief Hx & Hospital Course: Patient is a 79-year-old male with past medical history of hypertension, dyslipidemia, asthma, depression, gout who came in due to generalized abdominal pain. According to the patient, pain had been ongoing for the last 4-5 days and was associated with intermittent nausea and vomiting, he described the abdominal pain is cramping and located in the epigastric region with radiation to the midsternal chest area. Patient was evaluated in the ED for similar symptoms and discharged with Bentyl but symptoms continued to worsen which prompted this visit to the hospital. Patient also noted having nausea and chills along with 5 episodes of vomiting, he noted abdominal pain worsens with vomiting. The patient also had dizziness during this time. Patient noted 1 week ago he drank 1 bottle of Tequila, however, notes usually he will only drink alcohol occasionally. On review of systems patient complained of fatigue, chills, productive cough, shortness of breath, nausea, vomiting and constipation. The patient's shortness of breath gradually resolved over the course of his hospital stay. He was slowly weaned off oxygen support and brought back to room air which is his baseline. Chest x-ray showed cardiomegaly with small right pleural effusion. The Echo of the patient showed dilated chambers with LVEF of 10%. Patient also had paroxysmal AFib with RVRs for which she was placed on amiodarone. The patient was given a life vest for his reduced ejection fraction and was asked to follow-up in the outpatient with Cardiology for possible placement of an ICD. Patient was waiting for a walker approved by his insurance and was discharged once he got the walker. On evaluation today the patient stated he is well his vitals were stable. Medications and recommendations were thoroughly explained and the patient stated understanding of the same. Eating a discussion was held with the patient were all questions were answered and all concerns were addressed. Past Medical History Hypertension, dyslipidemia, asthma, depression, gout Past Social History Smoking: Denies Alcohol: Occasionally, wine and Tequila Drugs: Denies Constitutional: malaise, No: Fever, Sweats, Weakness, Eyes: No: Pain, Vision change, Conjunctivae inflammation, Eyelid inflammation, Redness ENT: No: Ear pain, Ear discharge, Nose pain, Nose discharge, Nose congestion, Mouth pain, Mouth swelling, Throat pain, Throat swelling Respiratory: Cough, no Shortness of breath; mild SOB with exertion, Wheezing, Hemoptysis, Pleuritic Pain, Sputum, Wheezing Cardiovascular: No: Chest Pain, Palpitations, Orthopnea, Paroxysmal Noc. Dyspnea, Edema, Lt Headednes Gastrointestinal: no Nausea, Vomiting, Abdominal Pain, Constipation; No: Diarrhea, Melena, Hematochezia Genitourinary: No Dysuria, No Frequency, No Incontinence, No Hematuria, No Retention Musculoskeletal: No: neck pain, shoulder pain, arm pain, back pain, hand pain, leg pain, foot pain Skin: No: Rash, Lesions, Jaundice, Bruising Neurological: No: Weakness, Numbness, Incoordination, Change in speech, Confusion, Seizures Allergies: no known allergies General Appearance: Alert, Oriented X4, Cooperative, No acute distress HEENT: Atraumatic, PERRLA, EOMI, Other (Dry mucous membranes) Respiratory: Normal air movement, normal breath sounds Cardiovascular: Regular rate, Normal S1, Normal S2 Abdominal: Normal bowel sounds, Soft, obese abdomen,no tenderness Extremities: no edema Skin: No rashes Neuro: Normal speech Psych/Mental Status: Mental status NL, Mood NL Operations or Procedures 1.PROCEDURE(s): CXRP - CHEST PORTABLE REASON: chest pain ORDER NUMBER(s): [id number], ACCESSION NUMBER(s): [id number] CHEST RADIOGRAPH REASON FOR EXAM: chest pain COMPARISON: None TECHNIQUE: One view of the chest is provided FINDINGS: The cardiomediastinal silhouette is borderline enlarged. There is mild pulmonary edema. There is small right pleural effusion. There is bibasilar airspace disease that may represent atelectasis although pneumonia is not ruled out. There is no pneumothorax. IMPRESSION: Borderline cardiomegaly. Small right pleural effusion. Mild pulmonary edema. Bibasilar airspace disease may represent atelectasis although pneumonia is not ruled out. 2.PROCEDURE(s): CAPIV - CT CHEST/AB/PL W CON- IV ONLY REASON: abd pain, vomiting, chest pain ORDER NUMBER(s): [id number], ACCESSION NUMBER(s): [id number] CLINICAL HISTORY: abd pain, vomiting, chest pain TECHNIQUE: CT of the chest, abdomen and pelvis was performed with IV contrast 85 mL Omnipaque 300. This exam was performed according to our departmental dose optimization program. Up-to-date CT equipment and radiation dose reduction techniques are utilized as appropriate. 27.13 CTDI: 27.13 DLP: 27.13 COMPARISON: None FINDINGS: CHEST FINDINGS: Lower Neck: Unremarkable Axilla, Mediastinum and Kaia: No axillary, mediastinal, or hilar lymphadenopathy. Calcified mediastinal lymph nodes. Heart and Great Vessels: Cardiomegaly without pericardial effusion. [id number] 3-vessel calcified coronary artery disease. Mild aortic valve calcifications. The thoracic aorta is normal in caliber containing mild mixed atherosclerotic plaque. The central pulmonary arteries are patent. Airway, Lungs and Pleura: Trachea and central airways are patent. There is mild bronchial wall thickening bilaterally. Linear bibasilar scarring or atelectasis. Small right pleural effusion. Very mild interlobular septal thickening in the lung bases. No pneumothorax. Chest Wall and Osseous Structures: Mild multilevel Thoracic spondylosis. No destructive osseous lesion. Abdomen and Pelvis Findings: Liver and Biliary system: Very mild nodular contour of the liver. Major portal veins are patent. Gallbladder is normal caliber. There is no biliary ductal dilatation. Suggestion of mild gallbladder wall thickening. Spleen: Unremarkable. Adrenal Glands and Kidneys: Normal adrenal glands. No hydronephrosis or nephrolithiasis. Small hypodensities in the left kidney likely cysts. Pancreas and Retroperitoneum: Mild retroperitoneal edema. Unremarkable pancreas. No retroperitoneal lymphadenopathy. Aorta and Major Vessels: Abdominal aorta is patent and normal caliber with moderate mixed atherosclerotic plaque. 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 Bowel, Mesentery and Peritoneal space: Normal caliber small and large bowel. Mild distal colonic diverticulosis. Mild ascites. Mesenteric venous congestion. No free air or fluid collection. Pelvis: Circumferential bladder wall thickening. There is mild prostatomegaly. There is no pelvic lymphadenopathy. Abdominal wall and Osseous Structures: Small fat containing bilateral inguinal hernias. There is body wall edema. Moderate multilevel lumbar spondylosis. There is a chronic mild superior endplate compression fracture less than 25% height loss at L3. No destructive osseous lesion. IMPRESSION: CHF/ volume overload, with mild cardiomegaly, mild interstitial pulmonary edema, small right pleural effusion, mesenteric venous congestion and mild ascites, and mild body wall edema. Very mild nodular contour of the liver which could be fibrosis or less likely cirrhosis. Correlate with lFTs and clinical history. Mild distal colonic diverticulosis. Mild bladder wall thickening which could be related to chronic bladder outlet obstruction in the setting of mild prostatomegaly. Correlate with urinalysis if there is clinical concern for cystitis. [id number]-[id number] 3-vessel calcified coronary artery disease. Mild aortic valve calcifications. 3.PROCEDURE(s): CXRP - CHEST PORTABLE REASON: chf ORDER NUMBER(s): [id number], ACCESSION NUMBER(s): [id number] CHEST RADIOGRAPH Indication: chf Technique: Single frontal view of the chest was obtained COMPARISON: CT CT CHEST/AB/PL W CON- IV ONLY on DOS: 10/02/24, XY CHEST PORTABLE on DOS: 10/02/24 FINDINGS: Lines and Tubes: None Lungs: Progressive right basilar pulmonary airspace disease. Suspected small bilateral pleural effusions. No pneumothorax. Cardiomediastinal contours: Unremarkable Bones: Unremarkable IMPRESSION: 1. Progressive right basilar pulmonary airspace disease and suspected small bilateral pleural effusions. 4.PROCEDURE(s): [facility]ID[facility] - ECHO 2D MODE CARDIAC DOP REASON: chf? ORDER NUMBER(s): [id number], ACCESSION NUMBER(s): [id number] APPROVED REPORT EXAM: Two-dimensional and M-mode echocardiogram with Doppler and color Doppler. Blood Pressure: 118/56 mmHg INDICATION CHF? RISK FACTORS Height: 70, Weight: 231 DIMENSIONS LVDd 6.5 (3.8-5.7cm) LA (2D) 5.0 (1.9-4.0cm) Aortic Root 3.6 (2.0- 3.7cm) LVDs 5.9 (2.5-4.0cm) LA (MM) (1.9-4.0cm) Aortic Cusp Exc 1.2 (1.5- 2.0cm) EF (%) 20.0 (55-70%) Rt. Atrium 5.5 (1.9-4.0cm) Asc. Aorta cm Mitral Valve Mitral Mitral Stenosis E wave 0.65m/s MV Mean GR. mmHg A wave 0.25m/s MV Peak GR. 54mmHg E/A ratio 2.6 2D MVA cm2 DECEL Time 122ms PRESS 1/2 Time ms Aortic Valve Aortic Valve Aortic Stenosis V1 0.70m/s AO Mean GR. 5mmHg V2 1.55m/s AO Peak GR. 10mmHg LVOT Diameter 2.1 (1.8-2.4cm) Doppler NATALY 1.56cm2 AI P 1/2 Time 446.63ms Tricuspid Valve TR Velocity 2.69m/s RVSP 50mmHg Other Information Technically limited study due to body habitus, patient position and patient moving. Conclusion DILATED ALL CARDIAC CHAMBERS SEVERE GLOBAL HYPKINESIS OF ALL CARDIAC CHAMBERS LV EF IS IN RANGE OF ONLY 10% MODERATE DEGREE MR MODERATE DEGREE TR HEAVILY CALCIFIED AORTIC LEAFLETS AND DECREASED EXCURSION AORTIC VALVE AREA IS 1.56 CM SQUARE IT IS MODERATE DEGREE AORTIC STENOSIS MODERATE DEGREE PULMONARY HYPERTENSION RVSP IS 50 MM OF HG AND IS MODERATELY HIGH NO EFFUSION SIGNED BY: ADRIÁN OGDEN MD Condition at Discharge: Stable Final Diagnosis/Problems List Lactic acidosis Mild ascites Hyperkalemia Thrombocytopenia Hyperbilirubinemia History of depression, controlled Dilated cardiomyopathy Paroxysmal AFib with RVR Acute on chronic CHF with reduced ejection fraction History are asthma,no exacerbation Grade 2 obesity Colonic diverticulosis without diverticulitis Transaminitis Discharge Disposition: Home Discharge Instruct/Medications Diet: Cardiac 2g Na,low cholest Activity: No Restrictions, As Tolerated Follow Up/Referral: Please follow up in d/c clinic in 1-2 weeks Pleaes follow up with PCP and get referral for cardiology in 1-2 weeks Medications: lasix 40 po daily jardiance 10 mg po daily entresto 1 tablet po bid Scheduled Amiodarone HCl (Amiodarone HCl), 200 MG PO DAILY Apixaban Base (Eliquis), 5 MG PO BID Dicyclomine Hcl (Bentyl Capsule), 1 CAP PO TID Docusate Sodium (Docusate Sodium), 100 MG PO BID Empagliflozin (Jardiance), 10 MG PO DAILY Furosemide (Lasix), 1 TAB PO DAILY Magnesium Hydroxide (Milk Of Magnesia Oral Suspension), 30 ML PO DAILY Metoprolol Tartrate (Lopressor), 12.5 MG PO BID Sacubitril-Valsartan (Entresto 24-26 mg), 1 TAB PO BID Scheduled PRN Ondansetron Odt 4MG Tab (Zofran Po), 4 MG PO Q6HP PRN Discharge Statement: "Patient was advised to return to the ER or call 911 if any headaches, dizziness, shortness of breath, chest pain, abdominal pain, bleeding, fevers, or worsening of medical condition. Patient was counseled about treatment plan, medications, possible side effects, patientverbalized understanding. All questions were answered to the best of my ability. This discharge took greater then 30 minutes in planning, reviewing documentation, counseling the patient, and discussing with other team members." DME: Diagnosis: Severe orthopnea due to heart failure with reduced ejection fraction of 10% ASSESSMENT ASSESSMENT Hospital Course Patient is a 79-year-old male with past medical history of hypertension, dyslipidemia, asthma, depression, gout who came in due to generalized abdominal pain. According to the patient, pain had been ongoing for the last 4-5 days and was associated with intermittent nausea and vomiting, he described the abdominal pain is cramping and located in the epigastric region with radiation to the midsternal chest area. Patient was evaluated in the ED for similar symptoms and discharged with Bentyl but symptoms continued to worsen which prompted this visit to the hospital. Patient also noted having nausea and chills along with 5 episodes of vomiting, he noted abdominal pain worsens with vomiting. The patient also had dizziness during this time. Patient noted 1 week ago he drank 1 bottle of Tequila, however, notes usually he will only drink alcohol occasionally. On review of systems patient complained of fatigue, chills, productive cough, shortness of breath, nausea, vomiting and constipation. The patient's shortness of breath gradually resolved over the course of his hospital stay. Chest x-ray showed cardiomegaly with small right pleural effusion. The Echo of the patient showed dilated chambers with LVEF of 10%. Patient also had paroxysmal AFib with RVRs for which she was placed on amiodarone. The patient was given a life vest for his reduced ejection fraction and was asked to follow-up in the outpatient with Cardiology for possible placement of an ICD. Pateint was waiting for a walker approved by his insurance and was discharged once he got the walker. On evaluation today the patient stated he is well his vitals were stable. Medications and recommendations were thoroughly explained and the patient stated understanding of the same. Eating a discussion was held with the patient were all questions were answered and all concerns were addressed. Assessment Lactic acidosis Mild ascites Hyperkalemia Thrombocytopenia Hyperbilirubinemia History of depression, controlled Dilated cardiomyopathy Paroxysmal AFib with RVR Acute on chronic CHF with reduced ejection fraction History are asthma,no exacerbation Grade 2 obesity Colonic diverticulosis without diverticulitis Transaminitis Date of Service: Oct 11, 2024 Billing Provider: CORRIE WEBB MD Common Visit Codes: 06356-TVH/OBS DISCH DAY >30min ENMA VANEGAS RESIDENT Oct 11, 2024 11:03 CORRIE WEBB MD Oct 14, 2024 10:03
[2024-10-11] MEDS: DOXYCYCLINE 100 MG TAB/CAP PO ONE (12:22)
[2024-10-11 13:29] VITALS: BP 102/76; PULSE 72; RESP 18; TEMP 98; O2SAT 100
--- NOTE | 2024-10-11 14:24 | ECG ---
[facility] Test Date: 2024-10-07 Test Time: 14:59:41 Pat Name: JEANETH LOPEZ Department: Respiratoy Room: 0240T A Gender: M Strings Teacher: RENITA : 1945 Requested By: ADRIÁN OGDEN Order Number: [id number] Reading MD: Adonis Mcmillan Measurements Intervals [place] Rate: 66 P: 57 MA: 204 QRS: 104 QRSD: 180 T: 33 QT: 556 QTc: 583 Interpretive Statements Sinus rhythm Ventricular trigeminy Nonspecific intraventricular conduction delay Electronically Signed On 10-12-2024 13:18:11 PDT by Adonis Mcmillan Please click the below link to view image of tracing.
[2024-10-11] MEDS ORDERED: FUROSEMIDE 20 MG TAB PO SCH (18:00)
--- NOTE | 2024-10-11 21:55 | DVHPN2 ---
Progress Note - Dictate Date Seen: Oct 11, 2024 Medical Necessity Reason Pt with a Central, PICC or Fol: No Subjective Patient was seen and evaluated in follow up. Patient has no new complaints at this time. Patient denies any cardiac symptoms. Patient is cardiac stable for discharge. Telemetry reviewed. vital signs Vital Sign Date Time Temp Pulse Resp B/P (MAP) Pulse Ox O2 Delivery O2 Flow Rate FiO2 10/11/24 13:29 98.0 72 18 102/76 (85) 100 98.0 10/11/24 10:00 Room Air 0.0 10/11/24 10:00 21 Total Intake and Output 10/10/24 10/10/24 10/11/24 15:00 23:00 07:00 Intake Total 1125 ml 600 ml Output Total 900 ml 650 ml Balance 225 ml -50 ml medications Current Medications Medications Dose Ordered Sig/Gideon Route Start Time Stop Time Status Last Admin Dose Admin Ipratropium [place] 0.5 mg Q8HPRN PRN NEB 10/02/24 23:15 Cancel Albuterol 2.5 mg Q8HPRN PRN NEB 10/02/24 23:15 Cancel objective GENERAL: Alert and oriented x 3. No acute distress. EYES: PERRL, EOMI. Anicteric. HENT: Moist mucous membranes. LUNGS: Clear to auscultation bilaterally. CARDIOVASCULAR: Regular rate and rhythm. ABDOMEN: Soft, nontender and nondistended. EXTREMITIES: No edema. NEUROLOGIC: No focal neurological deficits. SKIN: Warm, dry. laboratory and microbiology Laboratory Tests 10/08/24 06:14 Test 10/08/24 06:14 Range/Units Serum Glucose 89 74-106 mg/dL Problem List [place] decompensated HFrEF (EF 10%). Dilated cardiomyopathy, ?ischemic. Paroxysmal atrial fibrillation with RVR, now NSR. Elevated liver enzyme. Hypertension. Dyslipidemia. Obesity. Assessment/Plan Continued all current supportive medical care. Eliquis. Metoprolol. Amiodarone. Entresto. Additional plan as per the hospital course. Dietary Evaluation Review Comments: cardiac diet wt mgt Expected Outcomes/Goals: wt loss Plan discussed with: Patient ADRIÁN OGDEN MD Oct 11, 2024 21:55
[2024-10-11] MEDS ORDERED: DOXYCYCLINE 100 MG TAB/CAP PO SCH (22:00)
== END 2024-10-11 14:40 | disposition home or self-care (01) | DRG 177 ==
LOC: ER 17:47 → OVERFLOW 22:58 → TELE-CENTR 10-03 04:15 → TELE-EAST 10-07 20:29
PROVIDERS: ADMIT Internal Medicine Geriatric Medicine; ATTEND Internal Medicine Geriatric Medicine
PROC: 5A09357 Assistance with Respiratory Ventilation, Less than 24 Consecutive Hours, Continuous Positive Airway Pressure (ICD-10-PCS; principal; 2024-10-03)
PROC: 5A09357 Assistance with Respiratory Ventilation, Less than 24 Consecutive Hours, Continuous Positive Airway Pressure (ICD-10-PCS; 2024-10-04)
DX: J15.69 Pneumonia due to other Gram-negative bacteria (principal); I50.23 Acute on chronic systolic (congestive) heart failure; R18.8 Other ascites; E87.20 Acidosis, unspecified; E87.1 Hypo-osmolality and hyponatremia; I42.0 Dilated cardiomyopathy; I11.0 Hypertensive heart disease with heart failure; J15.9 Unspecified bacterial pneumonia; K57.30 Diverticulosis of large intestine without perforation or abscess without bleeding; E78.5 Hyperlipidemia, unspecified; E66.9 Obesity, unspecified; D69.6 Thrombocytopenia, unspecified; K59.00 Constipation, unspecified; E87.5 Hyperkalemia; E86.0 Dehydration; I25.10 Atherosclerotic heart disease of native coronary artery without angina pectoris; I48.0 Paroxysmal atrial fibrillation; I25.5 Ischemic cardiomyopathy; F32.A Depression, unspecified; J45.909 Unspecified asthma, uncomplicated; M10.9 Gout, unspecified; Z20.822 Contact with and (suspected) exposure to COVID-19; E80.6 Other disorders of bilirubin metabolism; I70.0 Atherosclerosis of aorta; Z79.01 Long term (current) use of anticoagulants; Z68.33 Body mass index [BMI] 33.0-33.9, adult; Z79.82 Long term (current) use of aspirin; Z79.899 Other long term (current) drug therapy
CPT/HCPCS: 36415; 71045; 71260; 74177; 80048; 80053; 80061; 83036; 83605; 83690; 83735; 83880; 83930; 84132; 84443; 84484; 85025; 85610; 86704; 86706; 86708; 86803; 87040; 87081; 87340; 87426; 87804; 93005; 93306; 94640; 94660; 96361; 96374; 97110; 97116; 97163; G0378; J2405